=== PATIENT | female | born 1940 | race Caucasian/White ===

== ENCOUNTER 2022-11-25 12:44 | Emergency (ER) | payer SELFPAY ==
[2022-11-25 12:57] VITALS: BP 172/94; PULSE 85; RESP 20; TEMP 37.3; O2SAT 100
--- NOTE | 2022-11-25 13:58 | PC.NURSE ---
Patient wheeled out by family before this RN was able to go over risks. Patient just states Im leaving .
== END 2022-11-25 13:58 | disposition left against medical advice (07) ==
DX: R10.33 Periumbilical pain (principal)
CPT/HCPCS: 99199

== ENCOUNTER 2022-11-26 16:35 | Inpatient (IN) | payer MEDICARE, SELFPAY ==
[2022-11-26] VITALS (19 sets, daily range): BP systolic 125–177; BP diastolic 60–110; PULSE 76–98; RESP 15–25; TEMP 36.4–36.7; O2SAT 94–100
--- NOTE | ~2022-11-26 | CT_ITS ---
EXAMINATION: CT thoracic lumbar wo con DATE: 11/26/2022 20:08 INDICATION: fall w/ back pain . TECHNIQUE: Computed tomography (CT) of the thoracic and lumbar spine was performed without intravenou s contrast. The dose-length product was 269.98 mGy-cm. COMPARISON: None FINDINGS: THORACIC SPINE: Exaggerated thoracic kyphosis. Thoracic aortic ectasia and atherosclerotic calcification. Biapical pl eural scarring. Emphysematous change. Irregular 8 mm nodule in the dependent right lower lobe. Verteb ral body alignment intact. Vertebral body heights preserved. No disc space narrowing. No traumatic ma lalignment or fracture. Visualized lung parenchyma is clear. LUMBAR SPINE: Mild lumbar scoliosis. 5 nonrib-bearing lumbar-type vertebral bodies. Pedicles intact. Normal vertebr al body alignment. Vertebral body heights preserved. Multilevel degenerative disc disease, severe at L2-3 and L4-5. Multilevel facet arthropathy. Atherosclerotic calcifications. Diverticulosis. Prominen t diffuse disc bulges at L2-3 and L4-5 cause moderate central canal stenosis. Bilateral nondisplaced L1 and sacral fractures. IMPRESSION: 1. Nondisplaced bilateral zone 1 sacral fractures. 2. No acute fracture or traumatic malalignment detected in the thoracic or lumbar spine. 3. 8 mm right lower lobe pulmonary nodule, compare with outside studies if available to demonstrate s tability, otherwise consider follow-up CT in 6-12 months. Reviewed, dictated and finalized at location K. T SCHOOL COUNSELOR IMPRESSION: 1. Nondisplaced bilateral zone 1 sacral fractures. 2. No acute fracture or traumatic malalignment detected in the thoracic or lumb ar spine. 3. 8 mm right lower lobe pulmonary nodule, compare with outside studies if avai lable to demonstrate stability, otherwise consider follow-up CT in 6-12 months.
--- NOTE | ~2022-11-26 | XR_ITS ---
EXAMINATION: XR chest 2V DATE: 12/01/2022 11:02 INDICATION: Leukocytosis. Cough. TECHNIQUE: Frontal and lateral views of the chest were obtained. COMPARISON: Thoracic spine CT 11/26/2022 FINDINGS: There is mild scarring at the lung apices. The lungs are hyperexpanded with lucencies, cons istent with emphysema. There is a nodule in right lower lung zone. No pleural effusion or pneumothora x. Cardiomegaly is noted. IMPRESSION: 1. Nodule in right lower lung zone, which may be infection or less likely malignancy. Noncontrast low -dose chest CT is recommended 3 months. 2. Emphysema. 3. Cardiomegaly. Reviewed, dictated and finalized at location A. SHAKER IMPRESSION: 1. Nodule in right lower lung zone, which may be infection or less likely malig michael. Noncontrast low-dose chest CT is recommended 3 months. 2. Emphysema. 3. Cardiomegaly.
--- NOTE | ~2022-11-26 | US_ITS ---
EXAMINATION: US carotid duplex BI DATE: 11/27/2022 17:24 INDICATION: Syncope TECHNIQUE: Grayscale, color Doppler, and pulsed Doppler images of the cervical carotid arteries were obtained. The degree of vessel stenosis is placed in one of the following categories: normal, <50%, 5 0-69%, >=70% but less than near-occlusion, near-occlusion, or total occlusion. Note that percent sten osis relative to normal distal artery lumen diameter is indirectly measured from velocity measurement s as described by Josr, et al. Radiology 2003; 229:340-346. Notes: Normal: Peak systolic velocity <125 centimeters/sec and no plaque <50%. Peak systolic velocity <125 ( EDV <40; ICA/CCA PSV ratio <2.0; used these factors only a tandem lesions or low cardiac output or co ntralateral disease) 50-69 %: PSV 125-230 (EDV 40-100; ratio 2-4) >= 70% but less than near occlusion: PSV greater than 230 (EDV > 100; ratio> 4.0) Near Occlusion: PSV that is variable; markedly narrowed lumen Occlusion: Absent flow on color/spectral Doppler and no lumen on multani scale. COMPARISON: None. FINDINGS: RIGHT: The right common carotid artery (CCA) peak systolic velocity (PSV) is 64 cm/s. The right internal car otid artery (ICA) PSV is 136 cm/s. The right ICA end-diastolic velocity (EDV) is 33 cm/s. The right I CA/CCA PSV ratio is 2.1. The external carotid artery (ECA) PSV is 96 cm/s. There is antegrade flow in the right vertebral artery. LEFT: The left CCA PSV is 65 cm/s. The left ICA PSV is 101 cm/s. The left ICA EDV is 26 cm/s. The left ICA/ CCA PSV ratio is 1.6. The ECA PSV is 107 cm/s. There is antegrade flow in the left vertebral artery. IMPRESSION: 1. 50-69% stenosis in the right internal carotid artery by sonographic criteria. 2. Less than 50% stenosis in the left internal carotid artery by sonographic criteria. Reviewed, dictated and finalized at location A. LE MOLDER IMPRESSION: 1. 50-69% stenosis in the right internal carotid artery by sonographic criteria . 2. Less than 50% stenosis in the left internal carotid artery by sonographic cr iteria.
--- NOTE | ~2022-11-26 | CT_ITS ---
EXAMINATION: CTA BRAIN/CAROTID DATE: 12/03/2022 14:58 INDICATION: Right-sided stenosis and syncope. TECHNIQUE: Computed tomographic angiography (CTA) of the head and neck was performed with 100 mL Omni paque-350 intravenous contrast. Multiplanar reconstructions and maximum intensity projection 3D-recon structions of the carotid arteries and of the intracranial arteries were created by the technologist on a separate workstation. Precontrast CT of the head was also obtained. Automated exposure control and iterative reconstruction technique were employed.The dose-length product was 1380.30 mGy-cm. COMPARISON: None. FINDINGS: Carotid arteries: Visualized portion of the aortic arch is normal in caliber with no dissection. There is 40% stenosis of the right carotid bulb relative to normal distal artery lumen diameter (NASCET criteria). There is atherosclerotic plaque with 0% stenosis of the left carotid bulb relative to normal distal artery ángel men diameter. Bilateral vertebral arteries are codominant with tortuosity at the origin of the left v ertebral artery. Moderate apical pleural parenchymal scarring with moderate emphysema in the visualiz ed bilateral upper lung zones. Multinodular goiter with the largest nodule measuring 2.2 cm the deep inferior right thyroid. Moderate thoracic spondylosis. Head: There is a region of subtle increased density at the confluence of the gyri in the right parietal reg ion where there appears to be increased number of feeding arteries and draining veins on the angiogra phic portion of the examination which suggests the increased density represents the nidus of an arter iovenous malformation. The increased density does not appear to track significantly along the surface of the gyrus to suggest arachnoid hemorrhage. No acute intracranial hemorrhage, acute infarction or abnormal extra axial fluid collection. There is mild scattered white matter hypoattenuation consisten t with chronic small vessel ischemic disease. Symmetric prominence of the sulci consistent with mild age-appropriate diffuse cerebral volume loss. Ventricles are normal and symmetric. No mass/mass effec t. Prominent mucosal thickening the left sphenoid sinus. The orbits and mastoid air cells are normal. Intracranial arteries Small amount of nonhemodynamically significant plaque at the bilateral carotid siphons. There is no h emodynamically significant stenosis in the vertebral basilar arteries. Vertebral arteries are codomin ant. There are no aneurysms identified. Both A1 and P1 segments are patent. Cerebral arterial arbori zation appears symmetric. IMPRESSION: 1. 40% stenosis of the right carotid bulb relative to normal distal artery lumen diameter (NASCET cri teria). 2. 0% stenosis of the left carotid bulb relative to normal distal artery lumen diameter. 3. No acute intracranial process. 2. 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 Reviewed, dictated and finalized at location A. VERIFICATION ENGINEER IMPRESSION: 1. 40% stenosis of the right carotid bulb relative to normal distal artery lume n diameter (NASCET criteria). 2. 0% stenosis of the left carotid bulb relative to normal distal artery lumen diameter. 3. No acute intracranial process. 2. 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
[2022-11-26 18:32] LABS: Basophils Absolute Auto 0.1 K/mm3 (0.0-0.1); Basophils Percent Auto 0.6 % (0.2-1.2); Eosinophils Percent Auto 0.2 % (0-4.4); Hematocrit 37.2 % (37.0-47.0); Hemoglobin 13.1 g/dL (12.0-15.0); Immature Granulocyte Absolute 0.07 K/mm3 (0.00-0.031); Immature Granulocyte Percent A 0.6 % (0-0.5); Lymphocytes Absolute Auto 1.68 K/mm3 (0.9-3.2); Lymphocytes Percent Auto 13.7 % (18.3-44.2); Mean Corpuscular HGB Conc 35.2 g/dl (32-36); Mean Corpuscular Hemoglobin 32.2 pg (26-34); Mean Corpuscular Volume 91.4 fl (80-100); Mean Platelet Volume 8.9 fl (7.4-10.4); Monocytes Absolute Auto 0.9 K/mm3 (0.1-0.6); Monocytes Percent Auto 6.9 % (2.6-8.5); Neutrophils Absolute Auto 9.6 K/mm3 (1.3-6.7); Platelet Count Result 411 k/mm3 (150-375); Red Blood Count 4.07 M/mm3 (4.2-5.4); Red Cell Distribution Width 12.2 % (11.5-14.5); White Blood Count 12.3 K/mm3 (4.5-10.0)
[2022-11-26 19:00] LABS: Alanine Aminotransferase 17 U/L (6-35); Albumin Level 4.5 g/dL (3.5-5.1); Alkaline Phosphatase 126 U/L (38-126); Anion Gap 7 mmol/L (8-16); Aspartate Amino Transferase 29 U/L (14-36); Bilirubin,Total 0.7 mg/dL (0.2-1.3); Blood Urea Nitrogen 5 mg/dL (7-17); Calcium 8.7 mg/dL (8.4-10.2); Carbon Dioxide 27 mmol/L (22-30); Chloride 86 mmol/L (98-107); Estimated CRCL calculation 66 ml/min; Estimated Glomerular Filt Rate > 60; Glucose 108 mg/dL (65-110); Lipase 263 U/L (23-300); Potassium 3.9 mmol/L (3.4-5.0); Sodium 120 mmol/L (137-145)
[2022-11-26 19:14] LABS: Add Urine Microscopic? YES; Appearance Urine Clear (Clear); Bilirubin Urine Negative (Negative); Blood Urine 2+ (Negative); Color Urine Yellow (Yellow); Glucose Urine UA Negative (Negative); Ketones Urine 1+ mg/dL (Negative); Leukocyte Esterase Ur Negative LEU/UL (Negative); Nitrate Urine Negative (Negative); Protein Urine Negative (Negative); Specific Grav Ur <= 1.005 (1.001-1.035); Urobilinogen Urine 0.2 mg/dL (<2.0)
[2022-11-26 19:17] LABS: Bacteria Urine Trace /hpf; Squamous Epithelial Cell Urine Rare /hpf (Few); WBC Urine 0-3 /hpf
--- NOTE | 2022-11-26 19:28 | ECG_ITS ---
Measurements Intervals [place] Rate: 88 P: 77 DE: 135 QRS: 83 QRSD: 80 T: 65 QT: 357 QTc: 432 Interpretive Statements SINUS RHYTHM WITH OCCASIONAL SUPRA VENTRICULAR PREMATURE COMPLEXES POSSIBLE LEFT ATRIAL ENLARGEMENT MINIMAL Q WAVES- ANTEROLAT/INF LEADS BASELINE ARTIFACT- I, II, III, AVR, AVL, AVF BORDERLINE ECG NO PREVIOUS ECG AVAILABLE FOR COMPARISON Electronically Signed On 11-26-2022 20:45:25 INCLUSION SPECIAL EDUCATION TEACHER by Priyank Gordon D.O.
--- NOTE | 2022-11-26 19:57 | ED.ABDPAIN ---
HPI - Abdominal Pain General Chief Complaint: Abdominal Pain Stated Complaint: kidney pains Time Seen by Provider: 11/26/22 19:38 History of Present Illness HPI narrative: Ms. Stovall is 82-year-old female who presented emergency room with complaints of upper abdominal pain and back pain. Patient's family is at bedside and is helping to provide information since patient does have some underlying memory loss. Patient states she fell approximately 5 days ago but was having back pain prior to this. Patient's family states the patient fell approximately 5 days ago and started having pain after her fall. Patient does complain of occasional nausea but no vomiting. Patient denies any constipation or diarrhea. Patient is able to state where she is at, what year it is, and who the present illness. Patient's family states the patient does have occasional confusion. Upon evaluation is noted the patient's sodium is 120. Patient denies any chest pain, shortness of breath, palpitations, syncopal, or near syncopal episodes. Patient states she occasionally does get dizzy when going from sitting to standing, but this does not occur daily. Patient denies any dysuria, hematuria, frequency, or urgency. Patient states she has not seen a primary care provider and over 20 years. Related Data Allergies Allergy/AdvReac Type Severity Reaction Status Date / Time No Known Allergies Allergy Verified 11/25/22 12:45 Review of Systems Review of Systems: A 12 point review of systems was completed patient all pertinent positive and negative per HPI the remainder are unremarkable. [facility] Social History Social History (Updated 11/26/22 @ 20:05 by Sandra Salazar, TAO) Smoking packs per day: 2 Smoking cigarettes per day: 40.0 Years smoked: 30 Smoking pack-years: 60.00 Smoking status: Current every day smoker Alcohol intake: current Alcohol use details: patient states she drinks 4-5 beers daily. Living arrangements: with family Exam Narrative: Constitutional: Patient is An 82-year-old an 82-year-old cachectic female who is frail and iin no acute distress. Patient is alert and oriented x3 HEENT: Moist mucous membranes. No scleral icterus. No lymphadenopathy. Neck: No carotid bruits noted no JVD noted Lungs: Lung sounds are clear to auscultation bilaterally. No accessory muscle use. No rhonchi, rales, or wheezes noted. Cardiovascular: Apical pulse is regular rate and rhythm. S1-S2 noted, no S3 or S4 noted. No gallops, murmurs, or rubs noted. Abdomen: Soft, round, and nontender. No palpable masses. Extremities: No edema. Nontender. Skin: No rashes or lesions. Warm and dry. Skin is intact. Neurological: No focal neurological deficits. Cranial nerves II-XII grossly intact. Psychiatric: Cooperative, appropriate mood, and affect Course Consultations Consultation #1: Dr. Self-Spoke w/ Dr. Self regarding CT findings. Dr. Self States that patient can follow-up in clinic in 1-2 weeks since she is neurovascularly intact. Date: 11/26/22 Consultation #2: Dr. Echols. Spoke with hospitalist regarding admission to the hospital secondary to hyponatremia. Dr. Echols graciously accepts the patient in states that she would like the patient to be placed on the medical-surgical floor and will evaluate the patient when she has been admitted to the unit. Vital Signs Vital signs: Vital Signs Temperature 36.4 C L 11/26/22 16:36 Pulse Rate 98 11/26/22 16:36 Respiratory Rate 17 11/26/22 16:36 Blood Pressure 155/85 H 11/26/22 16:36 Pulse Oximetry 97 11/26/22 16:36 Oxygen Delivery Room Air 11/26/22 16:36 Temperature 36.7 C 11/26/22 19:24 Pulse Rate 88 11/26/22 20:59 Respiratory Rate 20 11/26/22 20:26 Blood Pressure 177/75 H 11/26/22 20:26 Pulse Oximetry 98 11/26/22 20:26 Oxygen Delivery Room Air 11/26/22 16:36 MDM - Abdominal Pain MDM Narrative Medical decision making narrativ
[2022-11-26] MEDS: SODIUM CHLORIDE 0.9% IV 1,000 ML 100 ML IV CONT ×2 (20:14→22:31)
--- NOTE | 2022-11-26 20:22 | PC.NURSE ---
When asked pt what brought her into the ER pt reports abdominal and kidney pain. Her and daughter at bedside. reports pt drinks 4 beers every day, she has very poor nutrition, and has fallen multiple times over the past 2 months. Pt is alert, but forgetful. She denies any pain at this time.
[2022-11-26] MEDS: MORPHINE SULFATE (*CRX) 2 MG/ML INJ 1 MG IV PUSH (20:59)
--- NOTE | 2022-11-26 21:31 | PM.IMHP ---
H&P: HPI History of Present Illness Date/Time: 11/26/22 21:31 Chief Complaint: Fall Narrative: This is an 82-year-old female past medical history significant for ETOH dependence, recurrent falls, patient comes to the emergency room due to lower back pain. Patient was brought for evaluation by family members drinks 3-4 beers daily denies any nausea, vomiting, diarrhea, fevers, shortness of breath, sputum production. Preliminary workup was significant for chemistry panel with a sodium 120. CT of thoracic and lumbar spine was reported as: FINDINGS: THORACIC SPINE: Exaggerated thoracic kyphosis. Thoracic aortic ectasia and atherosclerotic calcification. Biapical pleural scarring. Emphysematous change. Irregular 8 mm nodule in the dependent right lower lobe. Vertebral body alignment intact. Vertebral body heights preserved. No disc space narrowing. No traumatic malalignment or fracture. Visualized lung parenchyma is clear. LUMBAR SPINE: Mild lumbar scoliosis. 5 nonrib-bearing lumbar-type vertebral bodies. Pedicles intact. Normal vertebral body alignment. Vertebral body heights preserved. Multilevel degenerative disc disease, severe at L2-3 and L4-5. Multilevel facet arthropathy. Atherosclerotic calcifications. Diverticulosis. Prominent diffuse disc bulges at L2-3 and L4-5 cause moderate central canal stenosis. Bilateral nondisplaced L1 and sacral fractures. IMPRESSION: 1. Nondisplaced bilateral zone 1 sacral fractures. 2. No acute fracture or traumatic malalignment detected in the thoracic or lumbar spine. 3. 8 mm right lower lobe pulmonary nodule, compare with outside studies if available to demonstrate stability, otherwise consider follow-up CT in 6-12 months. Patient is been placed in observation for further evaluation management and treatment. Review of Systems Review of Systems: Recurrent falls, lower back pain Constitutional: Constitutional: Denies chills, Denies fever(s), Denies malaise, Denies night sweats, Denies poor appetite and Reports weakness Eyes: Eyes: Denies change in vision ENT: Denies dysphagia, Denies vertigo, Denies dizziness and Denies odynophagia Cardiovascular: Cardiovascular: Denies chest pain, Denies leg edema, Denies palpitations and Denies dyspnea on exertion Respiratory: Respiratory: Denies chest congestion, Denies cough, Denies pain on inspiration and Denies dyspnea Gastrointestinal: Gastrointestinal: Denies abdominal pain, Denies dyspepsia, Denies heartburn, Denies diarrhea, Denies nausea and Denies vomiting Genitourinary: Genitourinary: Denies dysuria Musculoskeletal: Musculoskeletal: Reports back pain Integumentary/Breasts: Skin/Breast: Denies rash Neurologic: Denies vertigo, Denies dizziness, Denies focal weakness and Denies Sensory deficit (Neuro) Psychiatric: Psychiatric: Reports no additional psychiatric complaints and Reports as per HPI Endocrine: Endocrine: Denies cold intolerance, Denies flushing, Denies heat intolerance, Denies polyphagia, Denies polydipsia and Denies palpitations Hematologic/Lymphatic: Hematologic/Lymphatic: Reports no additional hematologic/lymphatic complaints and Reports as per HPI Allergic/Immunologic: Allergic/Immunologic: Reports no additional allergic/immunologic complaints and Reports as per HPI [facility] Social History Social History (Updated 11/26/22 @ 20:05 by Sandra Salazar APRN) Smoking packs per day: 2 Smoking cigarettes per day: 40.0 Years smoked: 30 Smoking pack-years: 60.00 Smoking status: Current every day smoker Alcohol intake: current Alcohol use details: patient states she drinks 4-5 beers daily. Living arrangements: with family Meds Home Medications and Allergies Home Medications Medication Instructions Recorded Confirmed Type No Home Medications 11/27/22 11/27/22 History Allergies Allergy/AdvReac Type Severity Reaction Status Date / Time No Known Allergies Allergy Verified 11/25/22 12:45 Vital Si
[2022-11-26 22:31] LABS: Influenza A QL RT-PCR Negative (Negative); Influenza B QL RT-PCR Negative (Negative); SARS-CoV-2 RNA PCR Negative
[2022-11-27] VITALS (28 sets, daily range): BP systolic 107–143; BP diastolic 53–96; PULSE 63–100; RESP 14–27; TEMP 36; O2SAT 98–100; BMI 14.5
[2022-11-27] MEDS: ACETAMINOPHEN 325 MG TABLET 650 MG PO ×3 (00:32→17:16)
[2022-11-27] MEDS: HYDROcodone/acetaminophen (*CRX) 5-325 MG TABLET 1 TAB PO (01:47)
[2022-11-27 05:31] LABS: Anion Gap 5 mmol/L (8-16); Blood Urea Nitrogen 3 mg/dL (7-17); Calcium 7.5 mg/dL (8.4-10.2); Carbon Dioxide 23 mmol/L (22-30); Chloride 104 mmol/L (98-107); Estimated CRCL calculation 66 ml/min; Estimated Glomerular Filt Rate > 60; Glucose 98 mg/dL (65-110); Potassium 3.1 mmol/L (3.4-5.0); Sodium 132 mmol/L (137-145)
--- NOTE | 2022-11-27 16:15 | PM.IMPN ---
Progress Note: A&P Assessment and Plan (1) Recurrent falls: Code(s): R29.6 - Repeated falls Status: Acute Assessment and Plan: Consult PT OT for evaluation S32.019A - Unspecified fracture of first lumbar vertebra, initial encounter for closed fracture ?Status:?Acute ?Assessment and Plan: Supportive care Pain management PT OT consult (2) EtOH dependence: Code(s): F10.20 - Alcohol dependence, uncomplicated Status: Acute Assessment and Plan: No sign of alcohol withdrawal (3) Hyponatremia: Code(s): E87.1 - Hypo-osmolality and hyponatremia Status: Acute Assessment and Plan: Hyponatremia, hypokalemia Replace with ns iv, potassium chloride 40 mEq p.o. (4) Closed L1 vertebral fracture: Code(s): S32.019A - Unspecified fracture of first lumbar vertebra, initial encounter for closed fracture Status: Acute Assessment and Plan: Supportive care Pain management PT OT consult (5) Syncope: Code(s): R55 - Syncope and collapse Status: Acute Assessment and Plan: Patient reported frequent syncope in past few months, Kadeem Hatfield was a wk ago Neuro check Follow-up orthostatic test, echocardiogram, carotid Doppler, Politician telemetry monitoring (6) Severe malnutrition: Code(s): E43 - Unspecified severe protein-calorie malnutrition Status: Acute Plan Consultation Provide a supplement Subjective Date/time seen: 11/27/22 16:15 I saw examined patient in the ED. patient still has buttock pain, unable to ambulate because of pain. Patient and family stated she had a frequent syncope in the past 4 months, no syncope yesterday, but the syncope happened a week ago Patient had dizziness before syncope. Patient denies focal weakness, headache, vision change Review of Systems Review of Systems: ROS unobtainable: Yes unobtainable due to medical condition Constitutional: Constitutional: Denies chills, Denies fever(s), Denies malaise, Denies night sweats, Denies poor appetite and Reports weakness Eyes: Eyes: Denies change in vision ENT: Denies dysphagia, Denies vertigo, Denies dizziness and Denies odynophagia Cardiovascular: Cardiovascular: Denies chest pain, Denies leg edema, Denies palpitations, Denies dyspnea and Denies dyspnea on exertion Respiratory: Respiratory: Denies chest congestion, Denies cough, Denies pain on inspiration, Denies dyspnea and Denies dyspnea on exertion Gastrointestinal: Gastrointestinal: Denies abdominal pain, Denies dysphagia, Denies dyspepsia, Denies heartburn, Denies diarrhea, Denies nausea, Denies odynophagia and Denies vomiting Genitourinary: Genitourinary: Denies dysuria Musculoskeletal: Musculoskeletal: Reports back pain Integumentary/Breasts: Skin/Breast: Denies rash Neurologic: Denies vertigo, Denies dizziness, Denies focal weakness, Denies Sensory deficit (Neuro) and Reports weakness Psychiatric: Psychiatric: Reports no additional psychiatric complaints and Reports as per HPI Endocrine: Endocrine: Denies cold intolerance, Denies flushing, Denies heat intolerance, Denies polyphagia, Denies polydipsia and Denies palpitations Hematologic/Lymphatic: Hematologic/Lymphatic: Reports no additional hematologic/lymphatic complaints and Reports as per HPI Allergic/Immunologic: Allergic/Immunologic: Reports no additional allergic/immunologic complaints and Reports as per HPI Exam Narrative: Patient is laying in a stretcher Const: General: comfortable, no acute distress, well developed, alert, awake, average body habitus and cachectic Nutritional Appearance: average body habitus and cachectic Orientation/consciousness: patient oriented x3 HENMT: Head: normal to inspection, normocephalic and atraumatic Ears: hearing grossly normal bilaterally Face/Nose/Sinus: normal facial exam Face and sinus: normal facial exam Eyes: General: appearance normal, both eyes and all related struc
[2022-11-27] MEDS: NICOTINE (*PBKC) 21 MG PATCH 1 PATCH TRANSDERM (17:08)
[2022-11-27 17:09] LABS: Anion Gap 5 mmol/L (8-16); Blood Urea Nitrogen 8 mg/dL (7-17); Calcium 7.9 mg/dL (8.4-10.2); Carbon Dioxide 25 mmol/L (22-30); Chloride 99 mmol/L (98-107); Estimated CRCL calculation 66 ml/min; Estimated Glomerular Filt Rate > 60; Glucose 149 mg/dL (65-110); Potassium 3.1 mmol/L (3.4-5.0); Sodium 129 mmol/L (137-145)
[2022-11-27] MEDS: SODIUM CHLORIDE 0.9% IV 1,000 ML 100 ML IV CONT (17:09)
[2022-11-27] MEDS: POTASSIUM CHLORIDE 20 MEQ TABLET 40 MEQ PO (17:09)
--- NOTE | 2022-11-27 18:35 | ADMGEN ---
This patient, Sulema Stovall, was admitted to Medical Room 261-01. Patient/family oriented to hospital policies and general routines including ID bracelet, bed and alarms, visiting hours, pain management, procedures, bathroom and other care routines, personal items, smoking policy, room service/diet, and visiting hours. Information on how to activate the Rapid Response Team has been discussed. Patient/Family are encouraged to report perceived risks to care and to ask questions if they do not understand what they are told or what they should do.
[2022-11-28] VITALS (10 sets, daily range): BP systolic 135–164; BP diastolic 68–87; PULSE 57–90; RESP 14–20; TEMP 36.7–36.9; O2SAT 96–100; BMI 14.5
[2022-11-28] MEDS: ACETAMINOPHEN 325 MG TABLET 650 MG PO ×2 (01:11→17:53)
[2022-11-28] MEDS: SODIUM CHLORIDE 0.9% IV 1,000 ML 100 ML IV CONT ×2 (05:19→17:52)
[2022-11-28] MEDS: ENOXAPARIN 40 MG/0.4 ML SYRINGE SUB-Q (08:40)
[2022-11-28] MEDS: NICOTINE (*PBKC) 21 MG PATCH 1 PATCH TRANSDERM (08:40)
[2022-11-28] MEDS: HYDROcodone/acetaminophen (*CRX) 5-325 MG TABLET 1 TAB PO ×2 (11:24→22:53)
--- NOTE | 2022-11-28 11:34 | PCOTNOTE ---
Attempted to see for OT evaluation. Per nursing, the patient was having 9/10 back pain and she just administered pain medication. She recommends therapy attempt later after the medication has had time to take effect.
--- NOTE | 2022-11-28 11:59 | PCOTNOTE ---
Spoke with nursing regarding safety concerns for mobilizing pt. without consultation from neurosurgeon or orthopedics to address pt. vertebral fxs. Nursing agreed to follow up with hospitalist regarding additional consult. Following.
--- NOTE | 2022-11-28 16:13 | ECHO_ITS ---
Patient Info Name: Sulema Stovall Age: 82 years : 1940 Gender: Female Ht: 62 in Wt: 79 lbs BSA: 1.24 m2 HR: 71 bpm BP: 126 / 65 mmHg Technical Quality: Good Exam Date: 11/28/2022 8:06 AM Exam Location: [facility] Patient Status: Inpatient Admit Date: 11/28/2022 Staff Ordering Physician: Mukund Matos MD Home Health Assistant: Ralf Gardner RDCS, RT Attending Provider: Steven Echols MD Exam Type: CA echo doppler color flow Study Info Indications R42 - Dizziness and giddiness Complete two-dimensional, color flow and Doppler transthoracic echocardiogram is performed. Strain analysis performed. Summary 1. Complete two-dimensional, color flow and Doppler transthoracic echocardiogram is performed. 2. Left ventricular chamber dimension is normal. 3. Left ventricular systolic function is normal, estimated at 60-65%. 4. The left ventricular diastolic function is normal. 5. E/e' 8 is minimally elevated. 6. Global longitudinal strain is normal at -19.9%. 7. There is mild aortic valve sclerosis. 8. There is mild to moderate aortic valve regurgitation. 9. There is mild to moderate mitral valve regurgitation. 10. There is moderate tricuspid valve regurgitation. 11. No pulmonary hypertension, estimated pulmonary arterial systolic pressure is 35 mmHg. 12. Normal inferior vena cava with <50% collapse upon inspiration consistent with elevated right atrial pressure, 10 mmHg. Left Ventricle E/e' 8 is minimally elevated. Global longitudinal strain is normal at -19.9%. Left ventricular chamber dimension is normal. Left ventricular systolic function is normal, estimated at 60-65%. The left ventricular diastolic function is normal. Right Ventricle Right ventricular systolic function is normal and with normal TAPSE 2.2 cm. Right ventricular chamber dimension is normal. Left Atria Left atrial chamber dimension is normal. Right Atria Right atrial chamber dimension is normal. Aortic Valve The aortic valve is trileaflet. There is mild aortic valve sclerosis. There is no aortic valve stenosis. There is mild to moderate aortic valve regurgitation. Pulmonic Valve There is no pulmonic regurgitation. Mitral Valve There is no mitral valve stenosis. There is mild to moderate mitral valve regurgitation. Tricuspid Valve There is moderate tricuspid valve regurgitation. No pulmonary hypertension, estimated pulmonary arterial systolic pressure is 35 mmHg. Pericardium/Pleural There is no pericardial effusion. Inferior Vena Cava Normal inferior vena cava with <50% collapse upon inspiration consistent with elevated right atrial pressure, 10 mmHg. Aorta The aortic root size at the sinus of Valsalva is normal. Left Ventricular Outflow Tract Name Value Normal LVOT 2D LVOT Diameter 1.9 cm LVOT Doppler LVOT Peak Gradient 5 mmHg LVOT Mean Gradient 3 mmHg LVOT VTI 24 cm LVOT VTI/AV VTI Ratio 0.9 LVOT Stroke Volume 66 ml LVOT CO
--- NOTE | 2022-11-28 16:33 | PM.IMPN ---
Progress Note: A&P Assessment and Plan (1) Recurrent falls: Code(s): R29.6 - Repeated falls Status: Acute Assessment and Plan: Consult PT OT for evaluation S32.019A - Unspecified fracture of first lumbar vertebra, initial encounter for closed fracture ?Status:?Acute ?Assessment and Plan: Supportive care Pain management PT OT consult (2) EtOH dependence: Code(s): F10.20 - Alcohol dependence, uncomplicated Status: Acute Assessment and Plan: No sign of alcohol withdrawal (3) Hyponatremia: Code(s): E87.1 - Hypo-osmolality and hyponatremia Status: Acute Assessment and Plan: Hyponatremia, hypokalemia Replace with ns iv, potassium chloride 40 mEq p.o. (4) Closed L1 vertebral fracture: Code(s): S32.019A - Unspecified fracture of first lumbar vertebra, initial encounter for closed fracture Status: Acute Assessment and Plan: Supportive care Pain management PT OT consult (5) Syncope: Code(s): R55 - Syncope and collapse Status: Acute Assessment and Plan: Patient reported frequent syncope in past few months, Kadeem Hatfield was a wk ago Neuro check Follow-up orthostatic test, echocardiogram EF normal, no aortic stenosis, carotid Doppler moderate bilateral carotid carotid arteries, no occlusion c/w telemetry monitoring (6) Severe malnutrition: Code(s): E43 - Unspecified severe protein-calorie malnutrition Status: Acute Plan Consultation Provide a supplement Time Spent With Patient Time: 35mins Subjective Date/time seen: 11/28/22 16:33 Exam Narrative: Patient is laying in a stretcher Const: General: comfortable, no acute distress, well developed, alert, awake, average body habitus and cachectic Nutritional Appearance: average body habitus and cachectic Orientation/consciousness: patient oriented x3 HENMT: Head: normal to inspection, normocephalic and atraumatic Ears: hearing grossly normal bilaterally Face/Nose/Sinus: normal facial exam Face and sinus: normal facial exam Eyes: General: appearance normal, both eyes and all related structures Pupils: Equal, round and reactive pupils present EOM: EOMs intact bilaterally Neck: Neck: full ROM, no lymphadenopathy and no JVD Thyroid: thyroid normal Lymphatic: no lymphadenopathy noted Resp: Effort & Inspection: normal respiratory effort and able to speak in complete sentences Auscultation: clear to auscultation bilaterally Cardio: Jugular venous distension: no JVD Rate: regular rate Rhythm: regular rhythm Heart sounds: S1 normal heart sound present and S2 normal heart sound present : General: Yes deferred Skin: Rashes: no rashes Wounds: no wounds Neuro: General: patient oriented x3, CN's II-XI intact bilaterally and Unable to assess gait Cranial nerves: Yes CN's II-XII intact bilaterally and Yes Equal, round and reactive pupils present Cognition (Neuro): normal cognition Speech: normal speech Gait exam (Neuro): Unable to assess gait Motor exam (neuro): 5/5 motor strength present throughout Sensory Exam: No Sensory deficit (Neuro) Extrem: General: normal to inspection, full ROM, no joint enlargement and no pedal edema Objective Data Vital Signs Vital Signs: Vital Signs - 24 hr 11/27/22 18:32 11/27/22 21:19 11/27/22 20:00 Temperature 96.8 F L Pulse Rate 71 67 Respiratory Rate 18 Blood Pressure 126/65 Pulse Oximetry 99 Oxygen Delivery Room Air 11/27/22 20:00 11/28/22 00:00 11/28/22 04:00 Temperature Pulse Rate 71 75 78 Respiratory Rate 18 Blood Pressure Pulse Oximetry 99 Oxygen Delivery Room Air 11/28/22 06:37 11/28/22 06:54 11/28/22 08:00 Temperature 98.0 F Pulse Rate 71 Respiratory Rate 14 Blood Pressure 135/73 145/68 H Pulse Oximetry 99 Oxygen Delivery Room Air 11/28/22 08:00 11/28/22 12:00 11/28/22 14:00 Temperature 98.5 F Pulse Rate 77 73 89 Respirator
[2022-11-29] VITALS: PULSE 87
[2022-11-29 04:00] VITALS: PULSE 87
[2022-11-29 06:00] VITALS: BP 141/71; PULSE 67; RESP 20; TEMP 36.6; O2SAT 100
[2022-11-29] MEDS: SODIUM CHLORIDE 0.9% IV 1,000 ML 100 ML IV CONT ×2 (06:04→19:15)
[2022-11-29 08:00] VITALS: PULSE 66
[2022-11-29] MEDS: NICOTINE (*PBKC) 21 MG PATCH 1 PATCH TRANSDERM (09:21)
[2022-11-29] MEDS: ENOXAPARIN 40 MG/0.4 ML SYRINGE SUB-Q (09:21)
--- NOTE | 2022-11-29 12:04 | PM.IMPN ---
Progress Note: A&P Assessment and Plan (1) Recurrent falls: Code(s): R29.6 - Repeated falls Status: Acute Assessment and Plan: Consult PT OT for evaluation S32.019A - Unspecified fracture of first lumbar vertebra, initial encounter for closed fracture ?Status:?Acute ?Assessment and Plan: Supportive care Pain management PT OT consult, recommends discharge to rehab Plans discharge patient on Thursday (2) EtOH dependence: Code(s): F10.20 - Alcohol dependence, uncomplicated Status: Acute Assessment and Plan: No sign of alcohol withdrawal (3) Hyponatremia: Code(s): E87.1 - Hypo-osmolality and hyponatremia Status: Acute Assessment and Plan: Hyponatremia, hypokalemia Replace with ns iv, potassium chloride 40 mEq p.o. Follow-up BMP (4) Closed L1 vertebral fracture: Code(s): S32.019A - Unspecified fracture of first lumbar vertebra, initial encounter for closed fracture Status: Acute Assessment and Plan: Supportive care Pain management PT OT consult (5) Syncope: Code(s): R55 - Syncope and collapse Status: Acute Assessment and Plan: Patient reported frequent syncope in past few months, Kadeem Hatfield was a wk ago Neuro check Follow-up orthostatic test, echocardiogram EF normal, no aortic stenosis, carotid Doppler moderate bilateral carotid carotid arteries, no occlusion c/w telemetry monitoring (6) Severe malnutrition: Code(s): E43 - Unspecified severe protein-calorie malnutrition Status: Acute Plan Consultation Provide a supplement Subjective Date/time seen: 11/29/22 12:04 Review of Systems Review of Systems: GENERAL: Pleasant, in no acute distress. Well-nourished. Has general weakness - EYES: EOMI. Anicteric. - HENT: Moist mucous membranes. - LUNGS: Clear to auscultation bilaterally, no wheezing, rhonchi, or rales. - CARDIOVASCULAR: Regular rate and rhythm. No murmur. No JVD. - ABDOMEN: Soft, non-tender and non-distended. No palpable masses. - EXTREMITIES: No edema. Peripheral pulses 2+. Non-tender. - NEUROLOGIC: No focal neurological deficits. CN II-XII grossly intact. unstable gait because of buttock pain on the sacral region - PSYCHIATRIC: Awake, Alert and oriented x 3. Appropriate mood and affect. - SKIN: No rashes or lesions. Warm. - LYMPH: No cervical lymphadenopathy. Objective Data Vital Signs Vital Signs: Vital Signs - 24 hr 11/28/22 14:00 11/28/22 15:01 11/28/22 16:00 Temperature 98.5 F Pulse Rate 89 87 Respiratory Rate 18 Blood Pressure 144/77 H Pulse Oximetry 100 Oxygen Delivery Room Air 11/28/22 20:55 11/28/22 20:00 11/28/22 20:00 Temperature 98.4 F Pulse Rate 57 L 57 L 90 Respiratory Rate 20 20 Blood Pressure 164/87 H Pulse Oximetry 96 96 Oxygen Delivery Room Air 11/29/22 00:00 11/29/22 04:00 11/29/22 06:00 Temperature 97.8 F Pulse Rate 87 87 67 Respiratory Rate 20 Blood Pressure 141/71 H Pulse Oximetry 100 Oxygen Delivery 11/29/22 08:00 11/29/22 08:00 Temperature Pulse Rate 66 Respiratory Rate Blood Pressure Pulse Oximetry Oxygen Delivery Room Air Intake/Output Intake/Output: Intake & Output 11/26/22 11/27/22 11/28/22 11/29/22 23:59 23:59 23:59 23:59 Intake Total 1000 1240 3760 1410 Output Total 240 408 1356 1450 Balance 626 913 2493 -40 Meds/Results Medications: Active Medications Generic Name Dose Route Start Last Admin Trade Name Freq PRN Reason Stop Dose Admin Acetaminophen 650 mg 11/26/22 21:36 11/28/22 17:53 Acetaminophen 325 Mg Tablet PO 650 mg Q6HR PRN Administration Mild Pain (1-3) or Fever Hydrocodone Bitart/Acetaminophen 1 tab 11/28/22 10:34 11/28/22 22:53 Hydrocodone/Acetaminophen (*Crx) 5-325 Mg Tablet PO 1 tab Q4H PRN Administration Pain Rated 4-6 Enoxaparin Sodium 40 mg 11/28/22 09:00 11/29/22 09:21 Enoxaparin 40 Mg/
[2022-11-29 12:29] LABS: Hematocrit 33.5 % (37.0-47.0); Hemoglobin 11.4 g/dL (12.0-15.0); Mean Corpuscular Hemoglobin 32.3 pg (26-34); Mean Corpuscular Volume 94.9 fl (80-100); Mean Platelet Volume 8.9 fl (7.4-10.4); Platelet Count Result 315 k/mm3 (150-375); Red Blood Count 3.53 M/mm3 (4.2-5.4); Red Cell Distribution Width 12.6 % (11.5-14.5); White Blood Count 11.9 K/mm3 (4.5-10.0)
[2022-11-29 12:40] LABS: Anion Gap 3 mmol/L (8-16); Blood Urea Nitrogen 8 mg/dL (7-17); Calcium 8.2 mg/dL (8.4-10.2); Carbon Dioxide 29 mmol/L (22-30); Chloride 98 mmol/L (98-107); Estimated CRCL calculation 66 ml/min; Estimated Glomerular Filt Rate > 60; Glucose 104 mg/dL (65-110); Potassium 3.2 mmol/L (3.4-5.0); Sodium 130 mmol/L (137-145)
[2022-11-29 14:00] VITALS: BP 134/68; PULSE 77; RESP 16; TEMP 36.9; O2SAT 100
[2022-11-29] MEDS: ACETAMINOPHEN 325 MG TABLET 650 MG PO ×2 (15:29→21:32)
[2022-11-29 17:27] LABS: Hematocrit 34.6 % (37.0-47.0); Hemoglobin 11.8 g/dL (12.0-15.0); Mean Corpuscular HGB Conc 34.1 g/dl (32-36); Mean Corpuscular Hemoglobin 32.3 pg (26-34); Mean Corpuscular Volume 94.8 fl (80-100); Mean Platelet Volume 8.9 fl (7.4-10.4); Platelet Count Result 311 k/mm3 (150-375); Red Blood Count 3.65 M/mm3 (4.2-5.4); Red Cell Distribution Width 12.4 % (11.5-14.5); White Blood Count 12.7 K/mm3 (4.5-10.0)
[2022-11-29 17:37] LABS: Anion Gap 7 mmol/L (8-16); Blood Urea Nitrogen 8 mg/dL (7-17); Calcium 8.2 mg/dL (8.4-10.2); Carbon Dioxide 28 mmol/L (22-30); Chloride 94 mmol/L (98-107); Estimated CRCL calculation 66 ml/min; Estimated Glomerular Filt Rate > 60; Glucose 113 mg/dL (65-110); Potassium 3.5 mmol/L (3.4-5.0); Sodium 129 mmol/L (137-145)
[2022-11-29 20:36] VITALS: BP 123/63; PULSE 78; RESP 12; TEMP 36.7; O2SAT 97
[2022-11-30 05:23] VITALS: BP 134/73; PULSE 90; RESP 12; TEMP 36.4; O2SAT 98
[2022-11-30] MEDS: SODIUM CHLORIDE 0.9% IV 1,000 ML 100 ML IV CONT ×2 (06:03→16:15)
--- NOTE | 2022-11-30 08:29 | PM.IMPN ---
Progress Note: A&P Assessment and Plan (1) Recurrent falls: Code(s): R29.6 - Repeated falls Status: Acute Assessment and Plan: Consult PT OT for evaluation S32.019A - Unspecified fracture of first lumbar vertebra, initial encounter for closed fracture ?Status:?Acute ?Assessment and Plan: Supportive care Pain management PT OT consult, recommends discharge to rehab Plans discharge patient on Thursday (2) EtOH dependence: Code(s): F10.20 - Alcohol dependence, uncomplicated Status: Acute Assessment and Plan: No sign of alcohol withdrawal (3) Hyponatremia: Code(s): E87.1 - Hypo-osmolality and hyponatremia Status: Acute Assessment and Plan: Hyponatremia, hypokalemia Replace with ns iv, potassium chloride 40 mEq p.o. Hypokalemia corrected Hyponatremia improving Continue sodium chloride 1 g t.i.d. p.o. Follow-up BMP (4) Closed L1 vertebral fracture: Code(s): S32.019A - Unspecified fracture of first lumbar vertebra, initial encounter for closed fracture Status: Acute Assessment and Plan: Supportive care Pain management PT OT consult (5) Syncope: Code(s): R55 - Syncope and collapse Status: Acute Assessment and Plan: Patient reported frequent syncope in past few months, Kadeem Hatfield was a wk ago Neuro check Follow-up orthostatic test, echocardiogram EF normal, no aortic stenosis, carotid Doppler moderate bilateral carotid carotid arteries, no occlusion c/w telemetry monitoring (6) Severe malnutrition: Code(s): E43 - Unspecified severe protein-calorie malnutrition Status: Acute Plan Consultation Provide a supplement Subjective Date/time seen: 11/30/22 08:29 Saw and examined patient, patient still has difficulty with ambulation with assist because of general weakness and the buttock pain Patient denies chest pain, shortness breath, abdomen pain, nausea vomiting diarrhea Exam Narrative: Patient is laying in a stretcher Const: General: no acute distress, well developed, alert, awake, average body habitus and cachectic Nutritional Appearance: average body habitus Orientation/consciousness: patient oriented x3 HENMT: Head: normal to inspection, normocephalic and atraumatic Ears: hearing grossly normal bilaterally Face/Nose/Sinus: normal facial exam Face and sinus: normal facial exam Eyes: General: appearance normal, both eyes and all related structures Pupils: Equal, round and reactive pupils present EOM: EOMs intact bilaterally Neck: Neck: full ROM, no lymphadenopathy and no JVD Thyroid: thyroid normal Lymphatic: no lymphadenopathy noted Resp: Effort & Inspection: normal respiratory effort and able to speak in complete sentences Auscultation: clear to auscultation bilaterally Cardio: Jugular venous distension: no JVD Rate: regular rate Rhythm: regular rhythm Heart sounds: S1 normal heart sound present and S2 normal heart sound present : General: Yes deferred Skin: Rashes: no rashes Wounds: no wounds Neuro: General: patient oriented x3, CN's II-XI intact bilaterally and Unable to assess gait Cranial nerves: Yes CN's II-XII intact bilaterally and Yes Equal, round and reactive pupils present Cognition (Neuro): normal cognition Speech: normal speech Gait exam (Neuro): Unable to assess gait Motor exam (neuro): 5/5 motor strength present throughout Sensory Exam: No Sensory deficit (Neuro) Extrem: General: normal to inspection, full ROM, no joint enlargement and no pedal edema Objective Data Vital Signs Vital Signs: Vital Signs - 24 hr 11/29/22 14:00 11/29/22 20:36 11/30/22 05:23 Temperature 98.5 F 98.1 F 97.5 F L Pulse Rate 77 78 90 Respiratory Rate 16 12 12 Blood Pressure 134/68 123/63 134/73 Pulse Oximetry 100 97 98 Intake/Output Intake/Output: Intake & Output 11/27/22 11/28/22 11/29/22 11/30/22 23:59 23:59 23:59 23:59 Intake Total 1240 8620 2830 1325
[2022-11-30] MEDS: ENOXAPARIN 40 MG/0.4 ML SYRINGE SUB-Q (09:36)
[2022-11-30] MEDS: SODIUM CHLORIDE 1 GM TABLET PO ×3 (09:36→16:15)
[2022-11-30] MEDS: NICOTINE (*PBKC) 21 MG PATCH 1 PATCH TRANSDERM (09:36)
[2022-11-30 14:28] VITALS: BP 139/82; PULSE 92; RESP 17; TEMP 36.3; O2SAT 98
[2022-11-30 18:19] LABS: Hematocrit 33.7 % (37.0-47.0); Hemoglobin 11.3 g/dL (12.0-15.0); Mean Corpuscular HGB Conc 33.5 g/dl (32-36); Mean Corpuscular Hemoglobin 32.2 pg (26-34); Mean Platelet Volume 9.5 fl (7.4-10.4); Platelet Count Result 323 k/mm3 (150-375); Red Blood Count 3.51 M/mm3 (4.2-5.4); Red Cell Distribution Width 12.5 % (11.5-14.5); White Blood Count 12.4 K/mm3 (4.5-10.0)
[2022-11-30 18:26] LABS: Anion Gap 5 mmol/L (8-16); Blood Urea Nitrogen 10 mg/dL (7-17); Carbon Dioxide 27 mmol/L (22-30); Chloride 96 mmol/L (98-107); Estimated CRCL calculation 52 ml/min; Estimated Glomerular Filt Rate > 60; Glucose 93 mg/dL (65-110); Potassium 3.5 mmol/L (3.4-5.0); Sodium 128 mmol/L (137-145)
[2022-11-30 21:42] VITALS: BP 146/79; PULSE 93; RESP 18; TEMP 36.8; O2SAT 97
[2022-11-30] MEDS: ACETAMINOPHEN 325 MG TABLET 650 MG PO (23:30)
[2022-12-01 05:30] VITALS: BP 154/78; PULSE 68; RESP 17; TEMP 37.2; O2SAT 100
[2022-12-01] MEDS: SODIUM CHLORIDE 0.9% IV 1,000 ML 100 ML IV CONT (05:58)
[2022-12-01] MEDS: ENOXAPARIN 40 MG/0.4 ML SYRINGE SUB-Q (10:12)
[2022-12-01] MEDS: SODIUM CHLORIDE 1 GM TABLET PO ×3 (10:12→17:18)
[2022-12-01] MEDS: NICOTINE (*PBKC) 21 MG PATCH 1 PATCH TRANSDERM (10:13)
[2022-12-01] MEDS: ACETAMINOPHEN 325 MG TABLET 650 MG PO ×2 (10:21→17:21)
--- NOTE | 2022-12-01 11:32 | PM.IMPN ---
Progress Note: A&P Assessment and Plan (1) Recurrent falls: Code(s): R29.6 - Repeated falls Status: Acute (2) Hyponatremia: Code(s): E87.1 - Hypo-osmolality and hyponatremia Status: Acute (3) Closed L1 vertebral fracture: Code(s): S32.019A - Unspecified fracture of first lumbar vertebra, initial encounter for closed fracture Status: Acute (4) Syncope: Code(s): R55 - Syncope and collapse Status: Acute Plan ?82-year-old female past medical history significant for ETOH dependence, recurrent falls, patient comes to the emergency room due to lower back pain. Was found to have L1 and Sacral fracture along with hyponatremia. 1)Recurrent Falls: ?in setting of alcohol abuse PT/OT Echo unremarkable Carotid shows 50-69% stenosis on right,Obtain CT neck angio might benefit from outpatient vascular evaluation Will add ASA, Statin Obtain lipid panel 2)Lumbar and Sacral fracture: Pain control Will get ortho consult 3)Hyponatremia: ?2/2 alcohol abuse Will get renal consult Sodium level has improved since admission though Obtain TSH 4)Leucocytosis: UA on admission unremarkable Will get CXR, blood culture Hold off any abx for now 5)Alcohol Abuse: Has been stable Will add thiamine and folic acid CID[facility] protocol 6)Severe Malnutrition: Encourage PO intake 7)DVT ppx: lovenox 8)Code:Full 9)Dispo:pending improvement Time Spent With Patient Time with patient: 25 - 35 minutes Subjective Date/time seen: 12/01/22 11:32 Interval history: c/o back pain no Difficulty breathing Review of Systems Review of Systems: All systems reviewed & are unremarkable except as noted in HPI and below Constitutional: Constitutional: Reports no additional constitutional complaints Eyes: Eyes: Reports no additional eye complaints ENT: Reports system reviewed and no additional complaints, except as documented Cardiovascular: Cardiovascular: Reports no additional cardiovascular complaints Respiratory: Respiratory: Reports no additional respiratory complaints Gastrointestinal: Gastrointestinal: Reports no additional gastrointestinal complaints Musculoskeletal: Musculoskeletal: Reports back pain Neurologic: Reports system reviewed and no additional complaints, except as documented Exam Const: General: comfortable and no acute distress HENMT: Mouth: Yes moist mucous membranes Eyes: Sclera: sclerae normal Neck: Neck: supple Resp: Effort & Inspection: normal respiratory effort Auscultation: clear to auscultation bilaterally Cardio: Rate: regular rate Rhythm: regular rhythm GI: GI Palp: Yes Soft to palpation Auscultation: normal bowel sounds Neuro: Speech: normal speech Extrem: General: normal to inspection Psych: Mental Status: mental status grossly normal Objective Data Vital Signs Vital Signs: Vital Signs - 24 hr 11/30/22 14:28 11/30/22 21:42 12/01/22 05:30 Temperature 97.4 F L 98.3 F 98.9 F Pulse Rate 92 93 68 Respiratory Rate 17 18 17 Blood Pressure 139/82 146/79 H 154/78 H Pulse Oximetry 98 97 100 Intake/Output Intake/Output: Intake & Output 11/28/22 11/29/22 11/30/22 12/01/22 23:59 23:59 23:59 23:59 Intake Total 3760 2830 3235 1790 Output Total 1800 7068 926 9267 Balance 8449 360 2260 -110 Meds/Results Medications: Active Medications Generic Name Dose Route Start Last Admin Trade Name Freq PRN Reason Stop Dose Admin Acetaminophen 650 mg 11/26/22 21:36 12/01/22 10:21 Acetaminophen 325 Mg Tablet PO 650 mg Q6HR PRN Administration Mild Pain (1-3) or Fever Hydrocodone Bitart/Acetaminophen 1 tab 11/28/22 10:34 11/28/22 22:53 Hydrocodone/Acetaminophen (*Crx) 5-325 Mg Tablet PO 1 tab Q4H PRN Administration Pain Rated 4-6 Enoxaparin Sodium 40 mg 11/28/22 09:00 12/01/22 10:12 Enoxaparin 40 Mg/0.4 Ml Syringe SUB-Q 40 mg DAILY JANICE Administration Nicotine 1 patch 11/27/22 17:00 01
[2022-12-01 11:49] LABS: Basophils Absolute Auto 0.1 K/mm3 (0.0-0.1); Basophils Percent Auto 1.2 % (0.2-1.2); Eosinophils Absolute Auto 0.4 K/mm3 (0-0.3); Eosinophils Percent Auto 3.9 % (0-4.4); Hematocrit 34.3 % (37.0-47.0); Hemoglobin 11.5 g/dL (12.0-15.0); Immature Granulocyte Absolute 0.04 K/mm3 (0.00-0.031); Immature Granulocyte Percent A 0.4 % (0-0.5); Lymphocytes Absolute Auto 1.85 K/mm3 (0.9-3.2); Lymphocytes Percent Auto 20.1 % (18.3-44.2); Mean Corpuscular HGB Conc 33.5 g/dl (32-36); Mean Corpuscular Hemoglobin 32.3 pg (26-34); Mean Corpuscular Volume 96.3 fl (80-100); Mean Platelet Volume 9.7 fl (7.4-10.4); Monocytes Absolute Auto 0.5 K/mm3 (0.1-0.6); Monocytes Percent Auto 4.9 % (2.6-8.5); Neutrophils Absolute Auto 6.4 K/mm3 (1.3-6.7); Neutrophils Percent Auto 69.5 % (45.5-73.1); Platelet Count Result 323 k/mm3 (150-375); Red Blood Count 3.56 M/mm3 (4.2-5.4); Red Cell Distribution Width 12.6 % (11.5-14.5); White Blood Count 9.2 K/mm3 (4.5-10.0)
[2022-12-01 11:55] LABS: Alanine Aminotransferase 26 U/L (6-35); Alkaline Phosphatase 120 U/L (38-126); Anion Gap 8 mmol/L (8-16); Aspartate Amino Transferase 45 U/L (14-36); Bilirubin,Total 0.5 mg/dL (0.2-1.3); Blood Urea Nitrogen 6 mg/dL (7-17); Calcium 8.4 mg/dL (8.4-10.2); Carbon Dioxide 28 mmol/L (22-30); Chloride 94 mmol/L (98-107); Estimated CRCL calculation 66 ml/min; Estimated Glomerular Filt Rate > 60; Glucose 138 mg/dL (65-110); Potassium 3.3 mmol/L (3.4-5.0); Sodium 130 mmol/L (137-145)
[2022-12-01] MEDS: LIDOCAINE 5% PATCH 1 PATCH TRANSDERM (12:11)
--- NOTE | 2022-12-01 12:16 | PM.CNNEP ---
Assessment and Plan Assessment and plan (1) Hyponatremia: Code(s): E87.1 - Hypo-osmolality and hyponatremia Status: Acute Assessment and Plan: resolving unclear if this is acute or acute on chronic hyponatremia admission sodium 120mmol/L corrected quite quickly (< 24 hours) to 132mmol/L fluctuating in the 128 - 130mmol/L range over the last few days suspect a component of volume depletion/prerenal azotemia on admission (given improvement with normal saline IVF) risk factors for hyponatremia: smoking history excessive alcohol intake chronic pain issues now on salt tabs for completeness, will check TSH, cortisol, SPEP, UPEP, and serum/urine osmolality as well as urine electrolytes. follow trend of sodium levels (2) Closed L1 vertebral fracture: Code(s): S32.019A - Unspecified fracture of first lumbar vertebra, initial encounter for closed fracture Status: Acute Assessment and Plan: as noted by admission imaging pain control Orthopedic consultation (3) EtOH dependence: Code(s): F10.20 - Alcohol dependence, uncomplicated Status: Acute Assessment and Plan: monitor for withdrawal thiamine and folate (4) Recurrent falls: Code(s): R29.6 - Repeated falls Status: Acute Assessment and Plan: related hyponatremia versus alcohol dependence(?) PT/OT as tolerated Will continue to follow. History of Present Illness Reason for Consult Consult date: 12/01/22 Reason for consult: hyponatremia Chief Complaint Chief complaint: Hyponatremia History of Present Illness Narrative: The patient is 82-year-old female with a past medical history as outlined below who presented to [facility] Emergency room several days ago with complaints of abdominal and back pain. Apparently, the patient fell approximately 5 days prior to her presentation to the emergency room. Since that time, she has been having significant back pain but apparently, she has had an issue with chronic back pain even prior to the fall. She does not really give any other symptoms other than some occasional nausea. Further complicating matters is that her family reports fluctuating confusion in the last few days as well. Given these acute issues, she presented to the emergency room via her family for further assessment Workup and evaluation emergency room demonstrated the patient be hemodynamically stable and routine blood tests were significant for significant hyponatremia with a sodium of 120. She had no other acute complaints other than the a for mentioned back pain with regard to chest pain, shortness of breath, palpitations, dizziness, lightheadedness, or syncope. She apparently has not seen a physician in over 20 years. Along with the significant hyponatremia by blood work, the patient when a CT scan of her thoracic/lumbar spine which demonstrated nondisplaced bilateral zone 1 sacral fractures. Given her laboratory abnormalities and these imaging studies, she was admitted hospital for further evaluation therapy Since her admission, her sodium was corrected with a combination of normal saline IV fluids and she has since been started on salt tablets with her most recent sodium running in the 130ish range. Renal consultation was requested due to the a for mention hyponatremia. As already mentioned, her sodium level corrected from 120-132 millimoles per L and less than 24 hours but she did not appear to suffer any type of sequelae from this fairly rapid correction. She is currently on salt tablets and has maintained her sodium level in the 138 range. Unfortunately, since she has not seen a physician almost 20 years, is unclear how acute or chronic this issue is with regard to her low sodium levels. However her risk factors for hyponatremia include excessive alcohol intake, her chronic pain issues, and her extensive smoking history. Currently, at the time my evaluation
--- NOTE | 2022-12-01 13:31 | PCPTNOTE ---
Attempted to see patient for PT, however patient reported she was still eating her lunch and asked if PT can come back.
--- NOTE | 2022-12-01 14:25 | PCPTNOTE ---
Patient refused treatment this session. Patient reported she does not feel like it today. Attempted to encourage patient to participate in therapy, patient continued to refuse.
--- NOTE | 2022-12-01 14:45 | PCOTNOTE ---
Attempted to see Patient for P.M. treatment session. Patient refused to participate this date. Patient verbalized, I'm just having a down in the day and I'm depressed. I just want left alone today, I'll do something tomorrow .
[2022-12-01 16:47] VITALS: BP 131/66; PULSE 68; RESP 18; TEMP 36.9; O2SAT 99
[2022-12-01 18:44] LABS: Total Protein Urine Random 12 mg/dL
[2022-12-01 18:45] LABS: Sodium Urine Random 97 meq/L
[2022-12-01 21:08] VITALS: BP 152/88; PULSE 95; RESP 18; TEMP 36.6; O2SAT 99
[2022-12-02] MEDS: HYDROcodone/acetaminophen (*CRX) 5-325 MG TABLET 1 TAB PO ×4 (00:50→22:39)
[2022-12-02 05:07] VITALS: BP 122/66; PULSE 64; RESP 17; TEMP 36.5; O2SAT 100
[2022-12-02 06:50] LABS: Basophils Absolute Auto 0.1 K/mm3 (0.0-0.1); Basophils Percent Auto 0.9 % (0.2-1.2); Eosinophils Absolute Auto 0.4 K/mm3 (0-0.3); Eosinophils Percent Auto 4.8 % (0-4.4); Hematocrit 28.9 % (37.0-47.0); Hemoglobin 9.9 g/dL (12.0-15.0); Immature Granulocyte Absolute 0.02 K/mm3 (0.00-0.031); Immature Granulocyte Percent A 0.3 % (0-0.5); Lymphocytes Absolute Auto 1.99 K/mm3 (0.9-3.2); Lymphocytes Percent Auto 25.9 % (18.3-44.2); Mean Corpuscular HGB Conc 34.3 g/dl (32-36); Mean Corpuscular Hemoglobin 31.7 pg (26-34); Mean Corpuscular Volume 92.6 fl (80-100); Mean Platelet Volume 9.5 fl (7.4-10.4); Monocytes Absolute Auto 0.7 K/mm3 (0.1-0.6); Monocytes Percent Auto 9.6 % (2.6-8.5); Neutrophils Absolute Auto 4.5 K/mm3 (1.3-6.7); Neutrophils Percent Auto 58.5 % (45.5-73.1); Platelet Count Result 281 k/mm3 (150-375); Red Blood Count 3.12 M/mm3 (4.2-5.4); Red Cell Distribution Width 12.6 % (11.5-14.5); White Blood Count 7.7 K/mm3 (4.5-10.0)
[2022-12-02 07:00] LABS: Potassium 3.5 mmol/L (3.4-5.0)
[2022-12-02 07:12] LABS: LDL Cholesterol Direct 77 mg/dL
[2022-12-02 07:29] LABS: Anion Gap 4 mmol/L (8-16); Blood Urea Nitrogen 7 mg/dL (7-17); Calcium 8.1 mg/dL (8.4-10.2); Carbon Dioxide 29 mmol/L (22-30); Chloride 97 mmol/L (98-107); Cholesterol 146 mg/dL (0-200); Estimated CRCL calculation 66 ml/min; Estimated Glomerular Filt Rate > 60; Glucose 91 mg/dL (65-110); HDL Direct 46 mg/dL; Sodium 130 mmol/L (137-145); Triglycerides 65 mg/dL (<150)
[2022-12-02 07:30] LABS: Cortisol Random 4.96 ug/dL
[2022-12-02 08:53] LABS: Free T4 Free Thyroxine Reflex 0.86 ng/dL (0.78-2.19)
--- NOTE | 2022-12-02 09:31 | PM.CNOR ---
History of Present Illness HPI Consult date: 12/02/22 Chief complaint: Hyponatremia PMFSH Family History Family History (Updated 11/27/22 @ 17:00 by Fernanda Mendoza RN) Father Alzheimer disease Mother Alzheimer disease Sibling Diabetes mellitus Social History Social History (Updated 11/26/22 @ 20:05 by Sandra Salazar APRN) Smoking packs per day: 2 Smoking cigarettes per day: 40.0 Years smoked: 30 Smoking pack-years: 60.00 Smoking status: Current every day smoker Alcohol intake: current Drinks per week: 21 Alcohol use details: patient states she drinks 4-5 beers daily. Substance use: never Lack of Transportation: No Lack of Food: Never True Current Housing: I Have Housing Concerned About Future Housing: No Difficulty Paying Gas/Electric Bills: No Difficulty Paying for Meds: No Currently Unemployed: No Education: High School Diploma/GED Difficulty w/ Childcare or Family Care: No Living arrangements: with family Spiritual care concerns: No Meds Home Medications and Allergies Home Medications Medication Instructions Recorded Confirmed Type ibuprofen 100 mg tablet 200 mg PO Q6H PRN Pain 11/27/22 11/27/22 History Allergies Allergy/AdvReac Type Severity Reaction Status Date / Time No Known Allergies Allergy Verified 11/25/22 12:45 Vital Signs Vital Signs - 24 hr 12/01/22 16:47 12/01/22 10:13 12/01/22 21:08 Temperature 36.9 C 36.6 C Pulse Rate 68 95 Respiratory Rate 18 18 Blood Pressure 131/66 152/88 H Pulse Oximetry 99 99 Oxygen Delivery Room Air 12/02/22 05:07 Temperature 36.5 C Pulse Rate 64 Respiratory Rate 17 Blood Pressure 122/66 Pulse Oximetry 100 Oxygen Delivery Results Labs 12/02/22 06:10 12/02/22 06:10 Labs: Abnormal lab results 12/01/22 12/01/22 12/01/22 Range/Units 10:04 10:04 17:57 RBC 3.56 L (4.2-5.4) M/mm3 Hgb 11.5 L (12.0-15.0) g/dL Hct 34.3 L (37.0-47.0) % [place] % (Auto) (2.6-8.5) % Eos % (Auto) (0-4.4) % [place] # (Auto) (0.1-0.6) K/mm3 Eos # (Auto) 0.4 H (0-0.3) K/mm3 Abs Immat Gran (auto) 0.04 H (0.00-0.031) K/mm3 Sodium 130 L (137-145) mmol/L Potassium 3.3 L (3.4-5.0) mmol/L Chloride 94 L (98-107) mmol/L Anion Gap (8-16) mmol/L BUN 6 L (7-17) mg/dL Creatinine 0.30 L (0.7-1.0) mg/dL Glucose 138 H (65-110) mg/dL Calcium (8.4-10.2) mg/dL AST 45 H (14-36) U/L TSH (Reflex) (0.465-4.68) uIU/mL Protein/Creat Ratio 2 0.60 H (0-0.20) mg/mg 12/02/22 12/02/22 12/02/22 Range/Units 06:10 06:10 06:10 RBC 3.12 L (4.2-5.4) M/mm3 Hgb 9.9 L (12.0-15.0) g/dL Hct 28.9 L (37.0-47.0) % [place] % (Auto) 9.6 H (2.6-8.5) % Eos % (Auto) 4.8 H (0-4.4) % [place] # (Auto) 0.7 H (0.1-0.6) K/mm3 Eos # (Auto) 0.4 H (0-0.3) K/mm3 Abs Immat Gran (auto) (0.00-0.031) K/mm3 Sodium 130 L (137-145) mmol/L Potassium (3.4-5.0) mmol/L Chloride 97 L (98-107) mmol/L Anion Gap 4 L (8-16) mmol/L BUN (7-17) mg/dL Creatinine 0.30 L (0.7-1.0) mg/dL Glucose (65-110) mg/dL Calcium 8.1 L (8.4-10.2) mg/dL AST (14-36) U/L TSH (Reflex) 7.410 H (0.465-4.68) uIU/mL Protein/Creat Ratio 2 (0-0.20) mg/mg H & H 11/26/22 11/29/22 11/29/22 Range/Units 18:16 12:23 17:20 Hgb 13.1 11.4 L 11.8 L (12.0-15.0) g/dL Hct 37.2 33.5 L 34.6 L (37.0-47.0) % 11/30/22 12/01/22 12/02/22 Range/Units 17:30 10:04 06:10 Hgb 11.3 L 11.5 L 9.9 L (12.0-15.0) g/dL Hct 33.7 L 34.3 L 28.9 L (37.0-47.0) % All other labs normal.
[2022-12-02 09:42] LABS: Total Triiodothyronine (T3) 1.24 NG/ML (0.97-1.69)
[2022-12-02] MEDS: ENOXAPARIN 40 MG/0.4 ML SYRINGE SUB-Q (09:48)
[2022-12-02] MEDS: SODIUM CHLORIDE 1 GM TABLET PO ×3 (09:48→18:47)
[2022-12-02] MEDS: ATORVASTATIN 10 MG TABLET PO (09:48)
[2022-12-02] MEDS: NICOTINE (*PBKC) 21 MG PATCH 1 PATCH TRANSDERM (09:48)
[2022-12-02] MEDS: ASPIRIN 81 MG CHEWABLE TABLET PO (09:48)
[2022-12-02] MEDS: FOLIC ACID 1 MG TABLET PO (09:49)
[2022-12-02] MEDS: LIDOCAINE 5% PATCH 1 PATCH TRANSDERM (09:49)
[2022-12-02] MEDS: THIAMINE HCL 100 MG TABLET PO (09:49)
--- NOTE | 2022-12-02 09:51 | P.PNNP_ITS ---
Progress Note: A&P Assessment and Plan (1) Hyponatremia: Code(s): E87.1 - Hypo-osmolality and hyponatremia Status: Acute Assessment and Plan: * relatively stable * unclear if this is acute or acute on chronic hyponatremia (suspect a chronic issue) * admission sodium 120mmol/L * corrected quite quickly (< 24 hours) to 132mmol/L * fluctuating in the 128 - 130mmol/L range currently * suspect a component of volume depletion/prerenal azotemia on admission (given improvement with normal saline IVF) * risk factors for hyponatremia: * smoking history * excessive alcohol intake * chronic pain issues * now on salt tabs * evaluation to date: * TSH elevated but T3/T4 okay * cortisol level low -- check stim test * SPEP/UEP and serum/urine osmolality pending * urine electrolytes non-prerenal * follow trend of sodium levels (2) Closed L1 vertebral fracture: Code(s): S32.019A - Unspecified fracture of first lumbar vertebra, initial encounter for closed fracture Status: Acute Assessment and Plan: * as noted by admission imaging * pain control * Orthopedic consultation/recommendations noted (3) EtOH dependence: Code(s): F10.20 - Alcohol dependence, uncomplicated Status: Acute Assessment and Plan: * monitor for withdrawal * thiamine and folate (4) Recurrent falls: Code(s): R29.6 - Repeated falls Status: Acute Assessment and Plan: * related hyponatremia versus alcohol dependence(?) * PT/OT as tolerated Will continue to follow. Subjective Date/time seen: 12/02/22 09:51 Appears to be doing reasonably well at the time of my visit; sodium continues to improve with current interventions noted; no apparent distress at this time. Exam Narrative: General: WD/WN female in NAD Heart: normal S1 and S2; no rub Lungs: clear to auscultation Abdomen: soft, nontender, nondistended, positive bowel sounds Extremities: no cyanosis or clubbing; no edema Skin: warm and dry Objective Data Vital Signs Vital Signs: Vital Signs Temp Pulse Resp BP Pulse Ox O2 Del Method 12/02/22 05:07 97.7 F 64 17 122/66 100 12/01/22 21:08 97.9 F 95 18 152/88 H 99 12/01/22 10:13 Room Air 12/01/22 16:47 98.4 F 68 18 131/66 99 Intake/Output Intake/Output: Intake & Output 11/29/22 11/30/22 12/01/22 12/02/22 23:59 23:59 23:59 23:59 Intake Total 2830 3235 2030 550 Output Total 8256 906 2049 1100 Balance 880 4806 -485 -990 Meds/Results Medications: Active Medications Generic Name Dose Route Start Last Admin Trade Name Freq PRN Reason Stop Dose Admin Acetaminophen 650 mg 11/26/22 21:36 12/01/22 17:21 Acetaminophen 325 Mg Tablet PO 650 mg Q6HR PRN Administration Mild Pain (1-3) or Fever Hydrocodone Bitart/Acetaminophen 1 tab 11/28/22 10:34 12/02/22 00:50 Hydrocodone/Acetaminophen (*Crx) 5-325 Mg Tablet PO 1 tab Q4H PRN Administration Pain Rated 4-6 Aspirin 81 mg 12/02/22 08:00 Aspirin 81 Mg Chewable Tablet PO DAILY@0800 [facility] Atorvastatin Calcium 10 mg 12/02/22 09:00 Atorvastati
--- NOTE | 2022-12-02 09:51 | PM.PNNEP ---
Progress Note: A&P Assessment and Plan (1) Hyponatremia: Code(s): E87.1 - Hypo-osmolality and hyponatremia Status: Acute Assessment and Plan: relatively stable unclear if this is acute or acute on chronic hyponatremia (suspect a chronic issue) admission sodium 120mmol/L corrected quite quickly (< 24 hours) to 132mmol/L fluctuating in the 128 - 130mmol/L range currently suspect a component of volume depletion/prerenal azotemia on admission (given improvement with normal saline IVF) risk factors for hyponatremia: smoking history excessive alcohol intake chronic pain issues now on salt tabs evaluation to date: TSH elevated but T3/T4 okay cortisol level low -- check stim test SPEP/UEP and serum/urine osmolality pending urine electrolytes non-prerenal follow trend of sodium levels (2) Closed L1 vertebral fracture: Code(s): S32.019A - Unspecified fracture of first lumbar vertebra, initial encounter for closed fracture Status: Acute Assessment and Plan: as noted by admission imaging pain control Orthopedic consultation/recommendations noted (3) EtOH dependence: Code(s): F10.20 - Alcohol dependence, uncomplicated Status: Acute Assessment and Plan: monitor for withdrawal thiamine and folate (4) Recurrent falls: Code(s): R29.6 - Repeated falls Status: Acute Assessment and Plan: related hyponatremia versus alcohol dependence(?) PT/OT as tolerated Will continue to follow. Subjective Date/time seen: 12/02/22 09:51 Appears to be doing reasonably well at the time of my visit; sodium continues to improve with current interventions noted; no apparent distress at this time. Exam Narrative: General: WD/WN female in NAD Heart: normal S1 and S2; no rub Lungs: clear to auscultation Abdomen: soft, nontender, nondistended, positive bowel sounds Extremities: no cyanosis or clubbing; no edema Skin: warm and dry Objective Data Vital Signs Vital Signs: Vital Signs Temp Pulse Resp BP Pulse Ox O2 Del Method 12/02/22 05:07 97.7 F 64 17 122/66 100 12/01/22 21:08 97.9 F 95 18 152/88 H 99 12/01/22 10:13 Room Air 12/01/22 16:47 98.4 F 68 18 131/66 99 Intake/Output Intake/Output: Intake & Output 01/06/1411/30/22 12/01/22 12/02/22 23:59 23:59 23:59 23:59 Intake Total 2830 3235 2030 550 Output Total 6016 699 9055 1100 Balance 880 2335 -170 550 Meds/Results Medications: Active Medications Generic Name Dose Route Start Last Admin Trade Name Freq PRN Reason Stop Dose Admin Acetaminophen 650 mg 11/26/22 21:36 12/01/22 17:21 Acetaminophen 325 Mg Tablet PO 650 mg Q6HR PRN Administration Mild Pain (1-3) or Fever Hydrocodone Bitart/Acetaminophen 1 tab 11/28/22 10:34 12/02/22 00:50 Hydrocodone/Acetaminophen (*Crx) 5-325 Mg Tablet PO 1 tab Q4H PRN Administration Pain Rated 4-6 Aspirin 81 mg 12/02/22 08:00 Aspirin 81 Mg Chewable Tablet PO DAILY@0800 [facility] Atorvastatin Calcium 10 mg 12/02/22 09:00 Atorvastatin 10 Mg Tablet PO DAILY [facility] Enoxaparin Sodium 40 mg 11/28/22 09:00 12/01/22 10:12 Enoxaparin 40 Mg/0.4 Ml Syringe SUB-Q 40 mg DAILY [facility] Administration Folic Acid 1 mg 12/02/22 09:00 Folic Acid 1 Mg Tablet PO DAILY [facility] Lidocaine 1 patch 12/01/22 09:00 12/01/22 12:11 Lidocaine 5% Patch TRANSDERM 1 patch DAILY [facility] Administration Nicotine 1 patch 11/27/22 17:00 12/01/22 10:13 Nicotine (*Pbkc) 21 Mg Patch TRANSDERM 1 patch QAM [facility] Administration Ondansetron HCl 4 mg 11/26/22 21:36 Ondansetron Inj 4 Mg/2 Ml Vial IV PUSH Q6H PRN Nausea And Vomiting Sodium Chloride 1 gm 11/30/22 09:00 12/01/22 17:18 Sodium Chloride 1 Gm Tablet PO 1 gm TID [facility] Administration Thiamine HCl 100 mg 12/02/22 09:00 Thiamine Hcl 100 Mg Tablet PO QAM [facility]
--- NOTE | 2022-12-02 13:03 | PM.IMPN ---
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,Obtain CT neck angio might benefit from outpatient vascular evaluation Continue ASA, Statin 2)Lumbar and Sacral fracture: Pain control Continue PT/ OT in hospital Orthopedic consulted 3)Hyponatremia: Sodium is 130 cont to monitor Awaiting renal consult Likely secondary to alcoholism 4)Leucocytosis: Hold off any abx for now 5)Alcohol Abuse: Has been stable Will add thiamine and folic acid CIWA protocol 6)Severe Malnutrition: Encourage PO intake 7)DVT ppx: lovenox plan DC home with home health in 2-3 days time Subjective Date/time seen: 12/02/22 13:03 82-year-old female past medical history significant for ETOH dependence, recurrent falls, patient comes to the emergency room due to lower back pain. Pt complains of lower back pain and left buttock pain. Pt found to have L1 and Sacral fracture along with hyponatremia. Pt participating in Physical therapy today. Pt has steps outside her flat, needs more therapy before discharging with home with home health Review of Systems Review of Systems: Ongoing lower back pain Exam Resp: Effort & Inspection: normal respiratory effort and able to speak in complete sentences Auscultation: clear to auscultation bilaterally Cardio: Jugular venous distension: no JVD Rate: regular rate Rhythm: regular rhythm Heart sounds: S1 normal heart sound present and S2 normal heart sound present GI: Auscultation: normal bowel sounds Back/Spine/Pelvis: Other: Spasms at the lumbar area Neuro: General: patient oriented x3, CN's II-XI intact bilaterally and Unable to assess gait Cranial nerves: Yes CN's II-XII intact bilaterally and Yes Equal, round and reactive pupils present Cognition (Neuro): normal cognition Speech: normal speech Gait exam (Neuro): Unable to assess gait Motor exam (neuro): 5/5 motor strength present throughout Sensory Exam: No Sensory deficit (Neuro) Extrem: General: normal to inspection, full ROM, no joint enlargement and no pedal edema Psych: Mental Status: mental status grossly normal Objective Data Vital Signs Vital Signs: Vital Signs - 24 hr 12/01/22 16:47 12/01/22 21:08 12/02/22 05:07 Temperature 36.9 C 36.6 C 36.5 C Pulse Rate 68 95 64 Respiratory Rate 18 18 17 Blood Pressure 131/66 152/88 H 122/66 Pulse Oximetry 99 99 100 Intake/Output Intake/Output: Intake & Output 11/29/22 11/30/22 12/01/22 12/02/22 23:59 23:59 23:59 23:59 Intake Total 2830 3235 2030 790 Output Total 9839 065 8810 1100 Balance 880 2335 -170 -310 Meds/Results Medications: Active Medications Generic Name Dose Route Start Last Admin Trade Name Freq PRN Reason Stop Dose Admin Acetaminophen 650 mg 11/26/22 21:36 12/01/22 17:21 Acetaminophen 325 Mg Tablet PO 650 mg Q6HR PRN Administration Mild Pain (1-3) or Fever Hydrocodone Bitart/Acetaminophen 1 tab 11/28/22 10:34 12/02/22 10:03 Hydrocodone/Acetaminophen (*Crx) 5-325 Mg Tablet PO 1 tab Q4H PRN Administration Pain Rated 4-6 Aspirin 81 mg 12/02/22 08:00 12/02/22 09:48 Aspirin 81 Mg Chewable Tablet PO 81 mg DAILY@0800 [facility] Administration Atorvastatin Calcium 10 mg 12/02/22 09:00 12/02/22 09:48 Atorvastatin 10 Mg Tablet PO 10 mg DAILY [facility] Administration Enoxaparin Sodium 40 mg 11/28/22 09:00 12/02/22 09:48 Enoxaparin 40 Mg/0.4 Ml Syringe SUB-Q 40 mg DAILY [facility] Administratio
--- NOTE | 2022-12-02 13:15 | PM.CNOR ---
Assessment and Plan Assessment and plan (1) Sacral fracture, closed: Code(s): S32.10XA - Unspecified fracture of sacrum, initial encounter for closed fracture Status: Acute Assessment and Plan: New patient evaluation for chief complaint low back and radiating left leg pain. History, physical exam and radiographs reviewed with the patient. CT scan shows bilateral sacral insufficiency fractures with minimal displacement Discussed the condition, nature, etiology and course of natural history with the patient. Treatment options including surgical and nonoperative treatment were reviewed. Risks and benefits of each as well as alternatives reviewed. The patient's questions were answered. Conservative treatment ice, compression and elevation. recommend conservative treatment with pain management. Patient may be weight-bearing as tolerated. PT/OT to assist with ambulation. Okay for discharge when medically stable per History of Present Illness HPI Consult date: 12/02/22 Requesting physician: Danette Smith MD Chief complaint: Hyponatremia Narrative: 82-year-old woman admitted to the hospital with hyponatremia and history of multiple falls. CT scan shows pelvis fracture. Review of Systems Constitutional: Constitutional: Denies fever(s) Eyes: Eyes: Denies blurry vision ENT: Reports Normal hearing present Cardiovascular: Cardiovascular: Denies chest pain and Denies dyspnea Respiratory: Respiratory: Denies dyspnea and Denies wheezing Gastrointestinal: Gastrointestinal: Denies abdominal pain Genitourinary: Genitourinary: Denies urinary urgency Musculoskeletal: Musculoskeletal: Reports as per HPI and Denies numbness Integumentary/Breasts: Skin/Breast: Denies changing lesions and Denies sores Neurologic: Reports Normal hearing present, Denies behavioral changes, Denies confusion, Denies numbness and Denies convulsions Psychiatric: Psychiatric: Denies behavioral changes, Denies confusion and Denies hallucinations Endocrine: Endocrine: Denies heat intolerance Hematologic/Lymphatic: Hematologic/Lymphatic: Denies easy bleeding Allergic/Immunologic: Allergic/Immunologic: Denies wheezing PMFSH Past Medical History Medical History (Updated 12/02/22 @ 13:17 by Juan Gandara MD) Sacral fracture, closed Family History Family History Father Alzheimer disease Mother Alzheimer disease Sibling Diabetes mellitus Social History Social History Smoking packs per day: 2 Smoking cigarettes per day: 40.0 Years smoked: 30 Smoking pack-years: 60.00 Smoking status: Current every day smoker Alcohol intake: current Drinks per week: 21 Alcohol use details: patient states she drinks 4-5 beers daily. Substance use: never Lack of Transportation: No Lack of Food: Never True Current Housing: I Have Housing Concerned About Future Housing: No Difficulty Paying Gas/Electric Bills: No Difficulty Paying for Meds: No Currently Unemployed: No Education: High School Diploma/GED Difficulty w/ Childcare or Family Care: No Living arrangements: with family Spiritual care concerns: No Meds Home Medications and Allergies Home Medications Medication Instructions Recorded Confirmed Type ibuprofen 100 mg tablet 200 mg PO Q6H PRN Pain 11/27/22 11/27/22 History Allergies Allergy/AdvReac Type Severity Reaction Status Date / Time No Known Allergies Allergy Verified 11/25/22 12:45 Vital Signs Vital Signs - 24 hr 12/01/22 16:47 12/01/22 21:08 12/02/22 05:07 Temperature 98.4 F 97.9 F 97.7 F Pulse Rate 68 95 64 Respiratory Rate 18 18 17 Blood Pressure 131/66 152/88 H 122/66 Pulse Oximetry 99 99 100 Exam Const: General: No confusion Orientation/consciousness: No confusion HENMT: Head: normal to inspection, normocephalic and atraumatic Eyes: Co
[2022-12-02 14:00] VITALS: BP 119/66; PULSE 99; RESP 18; TEMP 36.4; O2SAT 99
[2022-12-02 21:33] VITALS: BP 118/83; PULSE 95; RESP 18; TEMP 36.7; O2SAT 96
[2022-12-03 06:00] VITALS: BP 134/61; PULSE 77; RESP 20; TEMP 36.8; O2SAT 98
[2022-12-03 08:00] VITALS: BP 118/83
[2022-12-03 08:08] LABS: Albumin Level 3.5 g/dL (3.5-5.1); Anion Gap 4 mmol/L (8-16); Blood Urea Nitrogen 10 mg/dL (7-17); Calcium 8.3 mg/dL (8.4-10.2); Carbon Dioxide 30 mmol/L (22-30); Chloride 95 mmol/L (98-107); Estimated CRCL calculation 66 ml/min; Estimated Glomerular Filt Rate > 60; Glucose 91 mg/dL (65-110); Phosphorus 4.9 mg/dL (2.5-4.5); Potassium 4.4 mmol/L (3.4-5.0); Sodium 129 mmol/L (137-145)
[2022-12-03] MEDS: SODIUM CHLORIDE 1 GM TABLET PO ×2 (09:30→12:20)
[2022-12-03] MEDS: LIDOCAINE 5% PATCH 1 PATCH TRANSDERM (09:30)
[2022-12-03] MEDS: FOLIC ACID 1 MG TABLET PO (09:30)
[2022-12-03] MEDS: ENOXAPARIN 40 MG/0.4 ML SYRINGE SUB-Q (09:30)
[2022-12-03] MEDS: ASPIRIN 81 MG CHEWABLE TABLET PO (09:30)
[2022-12-03] MEDS: THIAMINE HCL 100 MG TABLET PO (09:30)
[2022-12-03] MEDS: ATORVASTATIN 10 MG TABLET PO (09:30)
[2022-12-03] MEDS: NICOTINE (*PBKC) 21 MG PATCH 1 PATCH TRANSDERM (09:31)
--- NOTE | 2022-12-03 09:50 | PCNFU ---
Nutrition Follow-Up Complete: Severe malnutrition as related to weight loss and muscle wasting as evidenced by Significant weight loss of 25% in the past 6 months and muscle wasting in the temples,deltoids and clavicles. Goal: Adequate Intake of at least 75% of meals/supplements Patient is meeting current goal. Pt current nutrition is Regular. Last recorded weight is 36 kg, recommend a new weight. Bowel Motility:Last reported BM 11/28 Labs Reviewed:Cr 0.3,Na 129 Meds Noted:Lovenox, Thiamine, Folic Acid. Skin: WNL Additional Notes: Patient seen today for nutrition follow up. Tolerating regular diet. Diet supplements remain as Ensure Pudding once daily providing 240 kcals and 9 gms protein and Ensure Enlive once daily providing 350 kcals and 20 gms protein. Patient is consuming most supplements. Agree with diet orders. Monitoring: RD will monitor every 7 days.
--- NOTE | 2022-12-03 11:36 | PM.DS ---
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% stenosis on right,Obtain CT neck angio might benefit from outpatient vascular evaluation Continue ASA, Statin 2)Lumbar and Sacral fracture: Pain control Continue PT/ OT in hospital Orthopedic consulted 3)Hyponatremia: Sodium is 130 cont to monitor Awaiting renal consult Likely secondary to alcoholism 4)Leucocytosis: Hold off any abx for now 5)Alcohol Abuse: Has been stable Will add thiamine and folic acid CIPA protocol 6)Severe Malnutrition: Encourage PO intake 7)DVT ppx: lovenox plan DC home with home health in 2-3 days time DS: Summary Hospital Course Hospital Course: 82-year-old female past medical history significant for ETOH dependence, recurrent falls, patient comes to the emergency room due to lower back pain.? Patient was brought for evaluation by family members drinks 3-4? beers daily denies any nausea, vomiting, diarrhea, fevers, shortness of breath, sputum production.? Preliminary workup was significant for chemistry panel with a sodium 120. Echo was done showing an EF of 60-65% normal diastolic dysfunction, no pulmonary hypertension and minimal valvular disease. Nephrology was consulted and noted that sodium quickly resolved to 130 which appears to be her baseline. No further management recommended, follow-up outpatient with Nephrology. They recommended she quit drinking his alcoholism appears to be contributing to her chronic hyponatremia. Low back pain was thought to be secondary to bilateral sacral insufficiency fractures with minimal displacement. Orthopedic surgery was consulted and recommended weight-bearing as tolerated with conservative medical management and that she was okay to discharge. PT/OT were consulted and recommended SNF at d/c. Patient refused and is adamant that she is going home with her spouse. 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 Patient not interested in surgical interventions at this time, but would like to discuss options with vascular surgery. CTA head and neck ordered and pending, follow up at [facility] vascular surgery info given. Repeat BMP ordered in 1 week to follow hyponatremia. Time Spent with Patient Time attestation: Total time spent providing and/or coordinating discharge services: Exam Narrative: General: No acute distress, alert and oriented per baseline HEENT: Atraumatic, normocephalic, mucous membranes moist CV: Regular rate and rhythm, S1, S2 Lungs: Clear to auscultation bilaterally, no rales or crackles noted, no wheezes, good air entry Abdomen: Soft, nontender, nondistended Extremities: Normal to inspection Skin: No rashes noted, no lesions or wounds seen Psych: Euthymic, normal affect DS: Data Data Completed and Pending Labs on day of discharge: Labs from last 24 hours 12/03/22 07:50 Sodium 129 L Potassium 4.4 Chloride 95 L Carbon Dioxide 30 Anion Gap 4 L BUN 10 Creatinine 0.30 L Estim Creat Clear Calc 66 Estimated GFR > 60 Glucose 91 Calcium 8.3 L Phosphorus 4.9 H Albumin 3.5 Preliminary micro results at discharge 12/01/22 10:04 Blood Culture - Preliminary Blood 12/01/22 10:06 Blood Culture - Preliminary Blood Discharge Plan Discharge Attending physic
[2022-12-03 14:00] VITALS: BP 159/77; PULSE 97; RESP 18; TEMP 36.9; O2SAT 98
[2022-12-03] MEDS: HYDROcodone/acetaminophen (*CRX) 5-325 MG TABLET 1 TAB PO (16:19)
[2022-12-03 22:51] LABS: Osmolality, Urine 351 mOsm/kg (50-1200)
[2022-12-04 19:59] LABS: Kappa\\Lambda Light Chains 1.83 (0.26-1.65); Lambda Light Chain 8.2 mg/L (5.7-26.3)
[2022-12-05 15:23] LABS: Chloride Rand Ur 79 mmol/L (32-290); Chloride/Creatinine Rand Ur 465 (38-318); Creatinine Random Urine 17 mg/dL (20-275)
[2022-12-05 19:56] LABS: Albumin 3.1 g/dL (3.8-4.8); Alpha 1 Globulin 0.4 g/dL (0.2-0.3); Alpha 2 Globulin 0.7 g/dL (0.5-0.9); Beta 1 Globulin 0.3 g/dL (0.4-0.6); Gamma Globulin 0.6 g/dL (0.8-1.7); Protein, Total 5.3 g/dL (6.1-8.1)
[2022-12-07 00:41] LABS: Creatinine, Random Urine 22 mg/dL (20-275); Total Protein/Creatinine Ratio 227 mg/g creat (24-184)
== END 2022-12-03 16:24 | disposition home or self-care (01) | DRG 641 ==
LOC: ANHED 21:50 → ANH3MEDSUR 11-27 00:09 → ANH2MED 11-27 16:03
PROVIDERS: Emergency Medicine; Hospitalist; Internal Medicine; Internal Medicine Nephrology; Admitting Provider Internal Medicine; Emergency Provider Nurse Practitioner Adult Health; Visit Provider Student in an Organized Health Care Education/Training Program
DX: E87.1 Hypo-osmolality and hyponatremia (principal); S32.14XA Type 1 fracture of sacrum, initial encounter for closed fracture; E46 Unspecified protein-calorie malnutrition; Z68.1 Body mass index [BMI] 19.9 or less, adult; W19.XXXA Unspecified fall, initial encounter; Z20.822 Contact with and (suspected) exposure to COVID-19; F10.20 Alcohol dependence, uncomplicated; R55 Syncope and collapse; R29.6 Repeated falls; D72.829 Elevated white blood cell count, unspecified; F17.210 Nicotine dependence, cigarettes, uncomplicated
CPT/HCPCS: 36415; 70496; 70498; 71046; 72128; 72131; 80048; 80053; 80061; 80069; 81001; 81050; 82436; 82533; 82570; 83690; 83883; 83930; 83935; 84155; 84156; 84165; 84166; 84300; 84439; 84443; 84480; 85025; 85027; 87040; 87636; 93005; 93306; 93880; 96361; 96372; 96374; 97110; 97116; 97161; 97165; 97530; 97535; 99285; A9270; G0378; J1650; J2270; J7030; Q9967

== ENCOUNTER → 2023-05-15 12:35 | Outpatient (CLI) | payer MEDICARE, SELFPAY ==
--- NOTE | ~2023-05-15 | CT_ITS ---
CT Scan of the Chest without Contrast: Clinical Indication: Solitary pulmonary nodule Technique: Contiguous sections were acquired throughout the chest without intravenous contrast. Dose reduction technique was used on this scan by utilizing automated exposure control and iterative recon struction technique. The dose-length product (DLP) was 126.43 mGy-cm. Findings: There is no evidence of any significant mediastinal, hilar or axillary lymphadenopathy. Coronary elfego ry calcifications are present. Ascending aorta measures up to 4.5 cm in diameter. There are atheroscl erotic calcifications of the aorta. There is no evidence of pleural or pericardial effusion. There is mild biapical scarring. There is mild to moderate emphysema. There is focal groundglass opac ity posteriorly in the right lower lobe (axial image 77). There is minimal bibasilar scarring.. Images through the upper abdomen reveal no abnormalities. Impression: Focal area of groundglass opacity posteriorly in the right lower lobe, nonspecific. Focal pneumonia i s a consideration. Mild to moderate emphysema with biapical and bibasilar scarring. Ascending aortic aneurysm measures 4.5 cm in diameter. Reviewed, dictated and finalized at [facility]. Impression: Focal area of groundglass opacity posteriorly in the right lower lobe, nonspeci fic. Focal pneumonia is a consideration. Mild to moderate emphysema with biapical and bibasilar scarring. Ascending aortic aneurysm measures 4.5 cm in diameter.
== END ==
PROVIDERS: PCP Physician Assistant; Visit Provider Physician Assistant
DX: J43.9 Emphysema, unspecified (principal); I71.21 Aneurysm of the ascending aorta, without rupture; R91.8 Other nonspecific abnormal finding of lung field
CPT/HCPCS: 71250

== ENCOUNTER 2023-09-07 15:34 | Outpatient (CLI) | payer MEDICARE, SELFPAY ==
[2023-09-07 16:08] LABS: Basophils Absolute Auto 0.1 K/mm3 (0.0-0.1); Basophils Percent Auto 0.6 % (0.2-1.2); Eosinophils Percent Auto 0.4 % (0-4.4); Hematocrit 36.9 % (37.0-47.0); Hemoglobin 12.3 g/dL (12.0-15.0); Immature Granulocyte Absolute 0.02 K/mm3 (0.00-0.031); Immature Granulocyte Percent A 0.2 % (0-0.5); Lymphocytes Absolute Auto 1.58 K/mm3 (0.9-3.2); Lymphocytes Percent Auto 16.9 % (18.3-44.2); Mean Corpuscular HGB Conc 33.3 g/dl (32-36); Mean Platelet Volume 9.1 fl (7.4-10.4); Monocytes Absolute Auto 0.5 K/mm3 (0.1-0.6); Monocytes Percent Auto 5.3 % (2.6-8.5); Neutrophils Absolute Auto 7.1 K/mm3 (1.3-6.7); Neutrophils Percent Auto 76.6 % (45.5-73.1); Platelet Count Result 368 k/mm3 (150-375); White Blood Count 9.3 K/mm3 (4.5-10.0)
[2023-09-07 17:35] LABS: Alanine Aminotransferase 33 U/L (6-35); Albumin Level 5.1 g/dL (3.5-5.1); Alkaline Phosphatase 89 U/L (38-126); Anion Gap 10 mmol/L (8-16); Aspartate Amino Transferase 40 U/L (14-36); Bilirubin,Total 0.7 mg/dL (0.2-1.3); Blood Urea Nitrogen 3 mg/dL (7-17); Calcium 9.4 mg/dL (8.4-10.2); Carbon Dioxide 27 mmol/L (22-30); Chloride 95 mmol/L (98-107); Estimated Glomerular Filt Rate > 60; Glucose 116 mg/dL (65-110); Potassium 3.5 mmol/L (3.4-5.0); Sodium 132 mmol/L (137-145)
[2023-09-07 18:12] LABS: Iron 55 ug/dL (37-170)
[2023-09-07 18:22] LABS: Percent Iron Saturation 15 % (20-50)
[2023-09-07 18:42] LABS: Folic Acid > 20.0 ng/mL (2.76->20)
[2023-09-10 09:08] LABS: Methylmalonic Acid 314 nmol/L (87-318)
[2023-09-10 18:12] LABS: Soluble Transferrin Receptor 1.17 mg/L (0.76-1.76)
== END 2023-09-07 15:35 | disposition home or self-care (01) ==
LOC: ANHLAB 15:36
PROVIDERS: PCP Physician Assistant; Visit Provider Internal Medicine Hematology & Oncology
DX: D64.9 Anemia, unspecified (principal)
CPT/HCPCS: 36415; 80053; 82607; 82728; 82746; 83540; 83550; 83921; 84238; 85025

== ENCOUNTER 2023-12-09 13:06 | Observation (INO) | payer MEDICARE, SELFPAY ==
[2023-12-09] VITALS (18 sets, daily range): BP systolic 92–128; BP diastolic 45–72; PULSE 63–124; RESP 14–33; TEMP 36.4; O2SAT 97–100
--- NOTE | ~2023-12-09 | CT_ITS ---
Clinical Indication: Jaundice, pain CT Scan of the Chest, Abdomen, and Pelvis with Contrast: Technique: Contiguous sections were acquired throughout the chest, abdomen, and pelvis after intraven ous administration of 100 cc of Omnipaque 350. Dose reduction technique was used on this scan by barbara barriosing automated exposure control and iterative reconstruction technique. The dose-length product (DL P) was 217.59 mGy-cm. COMPARISON: 05/15/2023 Findings: There is no evidence of any significant mediastinal, hilar or axillary lymphadenopathy. The mediastin al soft tissues and vascular structures appear normal. There is no evidence of pleural or pericardial effusion. There is increased area of consolidation with central pseudocavitation at the posterior right lower l obe (axial image 68). There is mild haziness at the left lung base, also probably mildly progressed f rom prior exam (axial image 78). There is an ill-defined hypoenhancing mass involving the pancreatic head/neck and possibly extending to involve the gastric antrum. Precise borders are difficult to delineate, but the mass could measure up to approximately 4 cm in diameter. There is associated intrahepatic and extrahepatic biliary dila tation, with dilated common bile duct which abruptly tapers at the level of the aforementioned mass. Upstream, common bile duct is dilated to 1.6 cm. No hepatic parenchymal mass seen. Gallbladder is mar kedly distended without definite wall thickening or gallstone. There is upstream dilatation of the ma in pancreatic duct from the level of the pancreatic neck to the tail. The spleen, adrenals and kidneys are within normal limits. There are atherosclerotic calcifications o f the aorta. No lymphadenopathy. No bowel obstruction or bowel wall thickening. There is no evidence to suggest acute appendicitis. Urinary bladder is unremarkable. No adnexal mass evident. Trace pelvic ascites. Impression: Ill-defined hypodense mass probably arising from the pancreatic head, most consistent with pancreatic adenocarcinoma. Please see details above. Mass possibly extends to the gastric antrum directly, but no distant metastatic disease clearly identified. Associated double duct sign, with upstream intrahepatic and extra hepatic biliary dilatation, as well as dilatation of the main pancreatic duct from the pancreatic neck to the tail. Increasing areas of groundglass consolidation at the bilateral lung bases. Chronicity and mild progre ssion raises the possibility of low-grade neoplasm such as bronchial alveolar cell carcinoma versus a chronic pneumonitis. Reviewed, dictated and finalized at location M. ENGRAVER Impression: Ill-defined hypodense mass probably arising from the pancreatic head, most cons istent with pancreatic adenocarcinoma. Please see details above. Mass possibly extends to the gastric antrum directly, but no distant metastatic disease clear ly identified. Associated double duct sign, with upstream intrahepatic and extra hepatic bilia ry dilatation, as well as dilatation of the main pancreatic duct from the pancr eatic neck to the tail. Increasing areas of groundglass consolidation at the bilateral lung bases. Pivot Maker nicity and mild progression raises the possibility of low-grade neoplasm such a s bronchial alveolar cell carcinoma versus a chronic pneumonitis.
--- NOTE | ~2023-12-09 | XR_ITS ---
Portable chest x-ray Comparison: 12/01/2022 Clinical History: Weakness Findings: Lungs are clear, without focal consolidation or pleural effusion. Possible COPD. Cardiome diastinal silhouette is stable. Bones and soft tissues are unremarkable. Impression: Clear lungs. Possible COPD. Reviewed, dictated and finalized at [facility]. [employer] DIRECTOR Impression: Clear lungs. Possible COPD.
--- NOTE | 2023-12-09 13:18 | ECG_ITS ---
Measurements Intervals [place] Rate: 104 P: 50 HI: 133 QRS: -2 QRSD: 81 T: 34 QT: 344 QTc: 454 Interpretive Statements SINUS TACHYCARDIA FREQUENT ATRIAL PREMATURE COMPLEXES POSSIBLE LEFT ATRIAL ENLARGEMENT MINIMAL Q WAVES- LATERAL LEADS BORDERLINE ST-T WAVE ABNORMALITY- ANTEROLAT/INF LEADS BASELINE ARTIFACT- I, II, III, AVR, AVF ABNORMAL ECG COMPARED TO ECG 11/26/2022 19:34:30 SINUS TACHYCARDIA NOW PRESENT ATRIAL PREMATURE COMPLEXES NOW PRESENT ST (T WAVE) DEVIATION NOW PRESENT Electronically Signed On 12-09-2023 13:56:12 CLEARING HAND by Priyank Gordon D.O.
[2023-12-09 13:52] LABS: Hematocrit 33.1 % (37.0-47.0); Hemoglobin 10.8 g/dL (12.0-15.0); Mean Corpuscular HGB Conc 32.6 g/dl (32-36); Mean Corpuscular Hemoglobin 29.1 pg (26-34); Mean Corpuscular Volume 89.2 fl (80-100); Mean Platelet Volume 10.2 fl (7.4-10.4); Platelet Count Result 331 k/mm3 (150-375); Red Blood Count 3.71 M/mm3 (4.2-5.4); Red Cell Distribution Width 12.8 % (11.5-14.5); White Blood Count 24.9 K/mm3 (4.5-10.0)
[2023-12-09 14:00] LABS: Ammonia < 9 umol/L (9-30)
[2023-12-09 14:01] LABS: Lactic Acid Reflex 2.3 mmol/L (0.7-2.0)
[2023-12-09 14:03] LABS: INR 1.6; Prothrombin Time 19.5 Seconds (11.1-14.7)
[2023-12-09 14:05] LABS: Alanine Aminotransferase 320 U/L (6-35); Albumin Level 3.6 g/dL (3.5-5.1); Anion Gap 13 mmol/L (8-16); Aspartate Amino Transferase 412 U/L (14-36); Bilirubin,Total 6.1 mg/dL (0.2-1.3); Blood Urea Nitrogen 16 mg/dL (7-17); Calcium 8.8 mg/dL (8.4-10.2); Carbon Dioxide 26 mmol/L (22-30); Chloride 91 mmol/L (98-107); Estimated CRCL calculation 37 ml/min; Estimated Glomerular Filt Rate > 60; Glucose 138 mg/dL (65-110); Potassium 3.6 mmol/L (3.4-5.0); Sodium 130 mmol/L (137-145)
[2023-12-09 14:05] LABS: Partial Thromboplastin Time 32.5 SECONDS (22.3-36.8)
[2023-12-09 14:07] LABS: Estimated CRCL calculation 37 ml/min; Estimated Glomerular Filt Rate > 60
[2023-12-09 14:11] LABS: Alkaline Phosphatase 1673 U/L (38-126)
--- NOTE | 2023-12-09 14:11 | PC.NURSE ---
Pt to CT scan via stretcher at this time, spouse remains at bedside.
[2023-12-09 14:15] LABS: Appearance Urine Cloudy (Clear); Bacteria Urine None Seen /hpf; Bilirubin Urine 3+ (Negative); Blood Urine Trace (Negative); Color Urine Dark Yellow (Yellow); Glucose Urine UA Negative (Negative); Hyaline Casts Urine Present /lpf; Ketones Urine Negative (Negative); Leukocyte Esterase Ur 1+ LEU/UL (Negative); Nitrate Urine Positive (Negative); Protein Urine 2+ mg/dL (Negative); Specific Grav Ur 1.025 (1.001-1.035); Squamous Epithelial Cell Urine Few /hpf (Few); WBC Urine 0-5 /hpf; pH Urine 5.5 (5.0-9.0)
[2023-12-09 14:16] LABS: Add Urine Microscopic? YES
[2023-12-09 14:28] LABS: Band Neutrophils Percent 1 % (0-6); Lymphocytes Absolute Manual 1.49 K/mm3 (1.1-4.5); Monocytes Absolute Manual 0.74 K/mm3 (0.1-0.90); Monocytes Percent Manual 3 % (3-9); Neutrophils Absolute Manual 22.65 K/mm3 (1.7-7.2); Neutrophils Percent Manual 90 % (46-73); Total Cells Counted 100
[2023-12-09 14:29] LABS: Hypochromasia 1+ (NORMAL); Platelet Estimate Adequate (Adequate); Schistocytes None Seen (NORMAL)
[2023-12-09 14:30] LABS: Influenza A QL RT-PCR Negative (Negative); Influenza B QL RT-PCR Negative (Negative); RSV RNA, RT-PCR Negative (Negative); SARS-CoV-2 RNA PCR Negative (Negative)
[2023-12-09] MEDS: SODIUM CHLORIDE 0.9% IV 1,000 ML 999 ML IV CONT (14:59)
--- NOTE | 2023-12-09 15:08 | ED.GENADULT ---
HPI - General Adult General Chief complaint: Weakness Stated complaint: bodyaches, weak, decreased appetite Time Seen by Provider: 12/09/23 13:41 History of Present Illness HPI narrative: Patient is an 83-year-old female who presents to the emergency department this afternoon after family members finally convinced her to come in. Patient is extremely jaundiced and complaining of abdominal pain and back pain. Has been who is present at bedside states that her symptoms have been ongoing for the past few months. Patient has been losing weight gradually during this period of time, has had a decrease in her appetite and worsening abdominal pain radiating to her back. Patient denies any previous history of any liver disease. Family members have been trying to make some doctor appointments for her but the patient has been cancelling all of them and when they got frustrated and called her doctor, doctor told them that they cannot bring her against her will. Today, the combination of the jaundice the abdominal pain and back pain finally caused her to come in for further evaluation. She denies any additional symptoms include any chest pain, shortness of breath, dysuria, hematuria, constipation, diarrhea, melena, hematochezia, fevers or chills. Patient also denies any headaches, dizziness, lightheadedness, blurry visions, focal weakness, numbness and or tingling. There are no other modifying, alleviating, or precipitating factors at this time. Related Data Home Medications Medication Instructions Recorded Confirmed calcium carbonate 600 mg-vitamin 0.5 cap PO 05/07/23 09/21/23 D3 12.5 mcg (500 unit) capsule (Calcium 600 with Vitamin D3) ferrous sulfate 325 mg (65 mg 162.5 mg PO .every other day 05/07/23 09/21/23 iron) tablet Allergies Allergy/AdvReac Type Severity Reaction Status Date / Time No Known Allergies Allergy Verified 12/09/23 13:27 Review of Systems Review of Systems: All systems are reviewed and are negative unless stated otherwise in the HPI. [facility] Past Medical History Medical History Arthritis Carotid artery disease Closed L1 vertebral fracture EtOH dependence IBS (irritable bowel syndrome) Lung nodule Recurrent falls Sacral fracture, closed Thoracic ascending aortic aneurysm Diameter 4.5cm Echo done 11/2022 CT screening q6 months, last April 2023 Tobacco dependence Family History Family History Father Alzheimer disease Mother Alzheimer disease Sibling Diabetes mellitus Social History Social History Smoking packs per day: 2 Smoking cigarettes per day: 40.0 Years smoked: 30 Smoking pack-years: 60.00 Smoking status: Former smoker Smoking end date: 11/28/22 Alcohol intake: former Substance use: never Substance use type: does not use Lack of Transportation: No Lack of Food: Never True Current Housing: I Have Housing Concerned About Future Housing: No Difficulty Paying Gas/Electric Bills: No Difficulty Paying for Meds: No Currently Unemployed: No Education: High School Diploma/GED Difficulty w/ Childcare or Family Care: No Living arrangements: with family Spiritual care concerns: No Exam Narrative: General: Alert, awake, afebrile, in no acute distress, severe jaundice, cachectic. HEENT: PERRL, no rhinorrhea, no post nasal drip, oropharynx clear. Neck: Trachea midline, no JVD, no lymphadenopathy. Cardiovascular: Regular rate and rhythm, no murmurs, rubs or gallops, no peripheral edema. Respiratory: Clear to auscultation bilaterally, no tachypnea, no wheezing, no rhonchi, no rubs, no respiratory distress. Abdomen: Soft, mild tenderness in the left upper quadrant, nondistended, no rebound, no guarding, no peritoneal signs. Musculoskeletal: No joint swelling or deformity, normal muscl
[2023-12-09 16:48] LABS: Reflex Lactic Acid Yes or No Add Lactic
[2023-12-09] MEDS: SODIUM CHLORIDE 0.9% IV 1,000 ML 100 ML IV CONT (17:26)
[2023-12-10] VITALS (35 sets, daily range): BP systolic 108–140; BP diastolic 51–88; PULSE 67–91; RESP 15–29; TEMP 36.6; O2SAT 95–100
--- NOTE | 2023-12-10 07:09 | PC.NURSE ---
Report given to [facility] Matta at this time.
--- NOTE | 2023-12-10 08:05 | PC.NURSE ---
spoke with [facility] Transfer, patient still on high priority wait list.
--- NOTE | 2023-12-10 09:51 | PC.NURSE ---
[facility] transfer center called, [facility] is still [facility].
--- NOTE | 2023-12-10 17:37 | PC.NURSE ---
Meal tray arrived for patient. Patient sitting in bed eating at this time
--- NOTE | 2023-12-10 18:33 | PC.NURSE ---
Called [facility] transfer center for status update-Still no bed.
--- NOTE | 2023-12-10 20:09 | PC.NURSE ---
Patient given a toothbrush and toothpaste per request. Patient advised to call for RN when she is ready to get up and get washed up so we can assist her.
[2023-12-10] MEDS: diphenhydrAMINE HCl INJ 50 MG/ML VIAL 25 MG IV PUSH (23:43)
[2023-12-11 04:05] VITALS: BP 120/79; PULSE 79; RESP 14; TEMP 36.7; O2SAT 97
[2023-12-11 07:15] VITALS: BP 128/61; PULSE 64; RESP 16; TEMP 36.9; O2SAT 97
[2023-12-11 08:42] VITALS: RESP 16
--- NOTE | 2023-12-11 08:53 | PC.NURSE ---
[facility] transfer line called, pt still waiting on bed. Updated set of VS and pt condition reviewed with staff.
[2023-12-11 11:03] VITALS: BP 127/79; PULSE 86; RESP 16; O2SAT 98
--- NOTE | 2023-12-11 13:37 | PC.NURSE ---
Pt gave this RN med list for patient to update chart.
[2023-12-11 14:55] VITALS: O2SAT 98
--- NOTE | 2023-12-11 14:55 | ADMGEN ---
This patient, Sulema Stovall, was admitted to [facility] Surg Room 307-02. Patient/family oriented to hospital policies and general routines including ID bracelet, bed and alarms, visiting hours, pain management, procedures, bathroom and other care routines, personal items, smoking policy, room service/diet, and visiting hours. Information on how to activate the Rapid Response Team has been discussed. Patient/Family are encouraged to report perceived risks to care and to ask questions if they do not understand what they are told or what they should do.
--- NOTE | 2023-12-11 15:52 | PM.IMHP ---
H&P: HPI History of Present Illness Date/Time: 12/11/23 15:52 Chief Complaint: Abdominal Pain, Nausea, Decreased Appetite Narrative: 83-year-old female presents here with diffuse abdominal pain, nausea, decreased appetite, and lower back pain with past medical history of CAD, alcoholism (cessation in Nov), IBS, stable thoracic ascending aortic aneurysm, former smoker (cessation in Nov). Patient poor historian and requested her spouse speak on her behalf, who is at the bedside provided majority of the history. Per , patient has had nondescript symptoms since November of 2022. However in the last 2-3 weeks patient has began experiencing worsening abdominal pain, abdominal distension, he decreased appetite, weight loss (unknown amount), and intermittent constipation. Now has developed jaundice. Has history of heavy ETOH use, 4-5 years per day and stopped drinking in November of 2022 after she sustained 3 falls secondary to drinking. Patient has also been experiencing dark/black stools for the past few months. Patient had colonoscopy recommended to her, which she declined. In the last 24 hours patient has also developed difficulty urinating and has been constipated. Last bowel movement was 2 days ago and she reports that was hard, small, and black. Workup in the ED was started on 12/09 and revealed an elevated white count at 24.9, stable anemia with a hemoglobin of 10.8, elevated neutrophils, no moderate hyponatremia with sodium of 130, creatinine of 0.6, lactic of 2.3, total bilirubin of 6.1, AST of 412, ALT of 329, alk-phos of 1673, and ammonia less than and UTI consistent with urinary tract infection. Viral PCR negative. CT of the chest/abdomen/pelvis showed an ill-defined hypodense mass probably arising from the pancreatic head, most consistent with pancreatic adenocarcinoma.?Associated double duct sign, with upstream intrahepatic and extra hepatic biliary dilatation, as well as dilatation of the main pancreatic duct from the pancreatic neck to the tail. Increasing areas of groundglass consolidation at the bilateral lung bases, chronic with mild progression (low grade neoplasm n chronic pneumonitis). [facility]-up of the CT findings, currently awaiting bed which has been delayed due to capacity. Review of Systems Review of Systems: All systems reviewed & are unremarkable except as noted in HPI and below PMFSH Past Medical History Medical History Arthritis Carotid artery disease Closed L1 vertebral fracture EtOH dependence cessation in Nov 4-5 beers daily IBS (irritable bowel syndrome) Lung nodule Recurrent falls Sacral fracture, closed Thoracic ascending aortic aneurysm Diameter 4.5cm Echo done 11/2022 CT screening q6 months, last April 2023 Tobacco dependence 2 PPD x60 yrs cessation in Nov Surgical History Surgical History No history of previous surgery Family History Family History Father Alzheimer disease Mother Alzheimer disease Sibling Diabetes mellitus Social History Social History Smoking packs per day: 2 Smoking cigarettes per day: 40.0 Years smoked: 30 Smoking pack-years: 60.00 Smoking status: Former smoker Smoking end date: 11/28/22 Alcohol intake: former Substance use: never Substance use type: does not use Lack of Transportation: No Lack of Food: Never True Current Housing: I Have Housing Concerned About Future Housing: No Difficulty Paying Gas/Electric Bills: No Difficulty Paying for Meds: No Currently Unemployed: No Education: High School Diploma/GED Difficulty w/ Childcare or Family Care: No Living arrangements: with family Spiritual care concerns: No
[2023-12-11 17:09] LABS: Basophils Percent Auto 0.2 % (0.2-1.2); Eosinophils Absolute Auto 0.1 K/mm3 (0-0.3); Eosinophils Percent Auto 0.7 % (0-4.4); Hematocrit 30.1 % (37.0-47.0); Hemoglobin 9.8 g/dL (12.0-15.0); Immature Granulocyte Absolute 0.17 K/mm3 (0.00-0.031); Immature Granulocyte Percent A 0.9 % (0-0.5); Lymphocytes Absolute Auto 1.33 K/mm3 (0.9-3.2); Lymphocytes Percent Auto 7.3 % (18.3-44.2); Mean Corpuscular HGB Conc 32.6 g/dl (32-36); Mean Corpuscular Volume 89.1 fl (80-100); Mean Platelet Volume 9.7 fl (7.4-10.4); Monocytes Percent Auto 5.4 % (2.6-8.5); Neutrophils Absolute Auto 15.6 K/mm3 (1.3-6.7); Neutrophils Percent Auto 85.5 % (45.5-73.1); Platelet Count Result 328 k/mm3 (150-375); Red Blood Count 3.38 M/mm3 (4.2-5.4); Red Cell Distribution Width 12.8 % (11.5-14.5); White Blood Count 18.2 K/mm3 (4.5-10.0)
[2023-12-11 17:29] LABS: Alanine Aminotransferase 313 U/L (6-35); Albumin Level 3.1 g/dL (3.5-5.1); Anion Gap 7 mmol/L (8-16); Aspartate Amino Transferase 425 U/L (14-36); Bilirubin,Total 7.6 mg/dL (0.2-1.3); Blood Urea Nitrogen 10 mg/dL (7-17); Calcium 8.3 mg/dL (8.4-10.2); Carbon Dioxide 30 mmol/L (22-30); Chloride 95 mmol/L (98-107); Estimated Glomerular Filt Rate > 60; Glucose 113 mg/dL (65-110); Potassium 3.9 mmol/L (3.4-5.0); Sodium 132 mmol/L (137-145)
[2023-12-11] MEDS: LACTATED RINGERS 1,000 ML 100 ML IV CONT (17:47)
[2023-12-11 19:19] LABS: Alkaline Phosphatase 2056 U/L (38-126)
[2023-12-11 20:00] VITALS: BP 132/67; PULSE 104; RESP 18; TEMP 36.4; O2SAT 98
--- NOTE | 2023-12-11 22:42 | PC.NURSE ---
Pt left by EMS at 2005 this evening to go to [facility]. Report had been called to [facility] Quintanilla and pt is to go to room 730. All pt belongings transported with pt, and family present to notify other family members of pt's discharge from this facility.
--- NOTE | 2023-12-13 16:46 | PM.TDS ---
Transfer Discharge Sum: Prov Provider Date of admission: 12/11/23 13:14 Primary care physician: Sho Delatorre MD Admitting clinician: German Arreola MD Attending physician on admission: German Arreola Consults: 12/09/23 Consult to GI Reason for consult: Abnormal CT finding CT showed ill-defined hypodense mass arising from the pancreatic head, most consistent with pancreatic adenocarcinoma. Case was discussed with the on-call GI physician, Dr. Delgado at 1445 on 12/09 by ED provider, Isha PENNINGTON. GI provider recommended transfer as patient will need a biopsy which we cannot perform here.? At this time, transfer center was contacted and transfer to a facility capable of performing an endoscopic biopsy is currently pending. 12/11/23 Consult to Dietitian Routine Reason for Consult:: Patient cachectic, reduced appetite times 2-3 weeks, needs increased caloric intake Attending physician on discharge: German Arreola Discharging clinician: Susan Serrano Anticipated date of transfer: 12/11/23 Receiving physician/facility: [place], [place] DS: Admitting Diagnosis Discharge Date 12/11/23 Admitting Diagnosis Pancreatic Cancer, Sepsis, Acute UTI DS: Discharge Diagnosis Discharge Diagnosis Plan Admitting/Discharge Dx: Pancreatic Cancer, Sepsis, Acute UTI C/F: endocrine pancreatic carcinoma, Sepsis, Abnormal transaminases, Hyperbilirubinemia, Cachexia, Pneumonitis, Acute UTI, lactic acidosis CT of the chest/abdomen/pelvis showed an ill-defined hypodense mass probably arising from the pancreatic head, most consistent with pancreatic adenocarcinoma.?Associated double duct sign, with upstream intrahepatic and extra hepatic biliary dilatation, as well as dilatation of the main pancreatic duct from the pancreatic neck to the tail. Increasing areas of groundglass consolidation at the bilateral lung bases, chronic with mild progression (low grade neoplasm n chronic pneumonitis). Patient has been accepted at [facility] for further work-up of the CT findings, currently awaiting bed which has been delayed due to capacity. Transfer Discharge Sum: Med Medications Active and Home Medications: Home Medications aspirin 81 mg chewable tablet (Children's Aspirin) 81 mg PO DAILY@0800 1 month #30 tabs 12/03/22 [Rx Confirmed 12/11/23] docusate sodium 100 mg capsule 100 mg PO DAILY #30 caps 01/14/23 [Rx Confirmed 12/11/23] calcium carbonate 600 mg-vitamin D3 12.5 mcg (500 unit) capsule (Calcium 600 with Vitamin D3) 0.5 cap PO DAILY 05/07/23 [History Confirmed 12/11/23] ferrous sulfate 325 mg (65 mg iron) tablet 162.5 mg PO .every other day 05/07/23 [History Confirmed 09/21/23] atorvastatin 10 mg tablet 10 mg PO DAILY #100 tabs 09/04/23 [Rx Confirmed 12/11/23] donepezil 5 mg tablet (Aricept) 5 mg PO QHS #90 tabs 10/13/23 [Rx Confirmed 10/13/23] folic acid 1 mg tablet 1 mg PO DAILY 12/11/23 [History Confirmed 12/11/23] Transfer Discharge Sum: Hosp Hospital Course Hospital course: 83-year-old female presents here with diffuse abdominal pain, nausea, decreased appetite, and lower back pain with past medical history of CAD, alcoholism (cessation in Nov), IBS, stable thoracic ascending aortic aneurysm, former smoker (cessation in Nov). Patient poor historian and requested her spouse speak on her behalf, who is at the bedside provided majority of the history.? Per , patient has had nondescript symptoms since November of 2022.? However in the last 2-3 weeks patient has began experiencing worsening abdominal pain, abdominal distension, he decreased appetite, weight loss (unknown amount), and intermittent constipation.? Now has developed jaundice.? Has history of heavy ETOH use, 4-5 years per day and stopped drinking in November of 2022 after she sustained 3 falls secondary to drinking.? Patient has also been experiencing dark/black stools for the past few months.? Patient had colonoscopy recommended to h
== END 2023-12-11 20:25 | disposition short-term general hospital (02) ==
LOC: ANHED 12-11 07:20 → ANH3MEDSUR 12-11 15:13
PROVIDERS: Emergency Medicine; Student in an Organized Health Care Education/Training Program; Admitting Provider Internal Medicine; Emergency Provider Emergency Medicine; PCP Family Medicine; Visit Provider Internal Medicine
DX: A41.9 Sepsis, unspecified organism (principal); C25.9 Malignant neoplasm of pancreas, unspecified; N39.0 Urinary tract infection, site not specified; R74.01 Elevation of levels of liver transaminase levels; E87.20 Acidosis, unspecified; E80.6 Other disorders of bilirubin metabolism; R64 Cachexia; K92.1 Melena; K58.9 Irritable bowel syndrome, unspecified; I71.21 Aneurysm of the ascending aorta, without rupture; R00.0 Tachycardia, unspecified; R94.31 Abnormal electrocardiogram [ECG] [EKG]; J98.4 Other disorders of lung; I25.10 Atherosclerotic heart disease of native coronary artery without angina pectoris; Z68.1 Body mass index [BMI] 19.9 or less, adult; F17.210 Nicotine dependence, cigarettes, uncomplicated; Z20.822 Contact with and (suspected) exposure to COVID-19; F10.21 Alcohol dependence, in remission; Z79.891 Long term (current) use of opiate analgesic; Z79.82 Long term (current) use of aspirin
CPT/HCPCS: 36415; 71045; 71260; 74177; 80053; 81001; 82140; 83605; 85025; 85610; 85730; 86850; 86900; 86901; 87040; 87637; 93005; 99285; G0378; J0696; J1200; J7030; J7120; Q9967

== ENCOUNTER 2024-08-16 12:26 | Inpatient (IN) | payer MEDICARE, SELFPAY ==
[2024-08-16] VITALS (13 sets, daily range): BP systolic 135–155; BP diastolic 67–86; PULSE 81–90; RESP 15–22; TEMP 36.5–36.9; O2SAT 96–99
--- NOTE | ~2024-08-16 | CT_ITS ---
EXAMINATION: CTA brain carotid DATE: 08/16/2024 14:35 INDICATION: Stroke. TECHNIQUE: Computed tomographic angiography (CTA) of the head was performed with 100 mL Omnipaque-350 intravenous contrast. CTA of the neck was performed with intravenous contrast. Automated exposure co ntrol and iterative reconstruction technique were employed. The dose-length product was 739.98 mGy-cm . Maximum intensity projection and volume rendered 3D-reconstructions were created by the [employer] t on a separate workstation. COMPARISON: Head CT 08/16/2024 FINDINGS: HEAD CTA: There are scattered areas of low attenuation in the cerebral white matter. There is no intr acranial hemorrhage, acute infarction, or abnormal intracranial mass lesion. The ventricles are torrie l in size. There is a right mastoid effusion. There is mild mucosal thickening in the paranasal sinus es. The orbits are normal. The vertebral arteries are codominant. There is no significant stenosis of basilar artery or the posterior cerebral arteries. There is no significant stenosis of the intracran ial internal carotid arteries or anterior or middle cerebral arteries. Anterior communicating artery is normal. There is no aneurysm. The posterior communicating arteries are normal. NECK CTA: There is mild emphysema. There is mild scarring at the lung apices. There are nodules in th e thyroid measuring up to 8 mm, likely not clinically significant. There is no significant stenosis o f the vertebral arteries. There is plaque in the proximal internal carotid arteries. There is 18% tiana nosis of the proximal right internal carotid artery relative to normal distal artery lumen diameter ( NASCET criteria). There is 0% stenosis of the proximal left internal carotid artery relative to torrie l distal artery lumen diameter. There is severe cervical spondylosis. There is extensive dental disea se. IMPRESSION: 1. Moderate nonspecific cerebral white matter disease, which likely represents chronic small vessel i schemic disease. 2. No aneurysm or significant intracranial arterial stenosis. 3. 18% stenosis of the proximal right internal carotid artery relative to normal distal artery lumen diameter (NASCET criteria). 4. 0% stenosis of the proximal left internal carotid artery relative to normal distal artery lumen di ameter. Reviewed, dictated and finalized at location A. IMPRESSION: 1. Moderate nonspecific cerebral white matter disease, which likely represents chronic small vessel ischemic disease. 2. No aneurysm or significant intracranial arterial stenosis. 3. 18% stenosis of the proximal right internal carotid artery relative to torrie l distal artery lumen diameter (NASCET criteria). 4. 0% stenosis of the proximal left internal carotid artery relative to normal distal artery lumen diameter.
--- NOTE | ~2024-08-16 | CT_ITS ---
EXAMINATION: CT brain wo con DATE: 08/16/2024 13:16 INDICATION: Left hemiparesis. TECHNIQUE: Computed tomography (CT) of the head was performed without intravenous contrast. The mA wa s adjusted according to patient size. Iterative reconstruction technique was employed. The dose-lengt h product was 605.33 mGy-cm. COMPARISON: Head CT 12/03/2022 FINDINGS: There are scattered areas of low attenuation in the cerebral white matter. There is no intr acranial hemorrhage, acute infarction, or abnormal intracranial mass lesion. The ventricles are torrie l in size. The orbits are normal. There is mild mucosal thickening in the paranasal sinuses. There is a right mastoid effusion. There is focal thickening of the outer table of the skull on the left post eriorly, consistent with an osteoma. IMPRESSION: 1. Stable moderate nonspecific cerebral white matter disease, which likely represents chronic small v essel ischemic disease. Reviewed, dictated and finalized at location A. IMPRESSION: 1. Stable moderate nonspecific cerebral white matter disease, which likely repr esents chronic small vessel ischemic disease.
--- NOTE | ~2024-08-16 | XR_ITS ---
XR chest 1V Ordering provider: Reed Velasco MD History: 84 years Female with . left side weakness . Comparison: December 09, 2023 FINDINGS: MEDIASTINUM: The cardiac silhouette is slightly enlarged. LUNGS: No infiltrates, effusions or pneumothorax. Emphysematous changes of the lungs. Prominent markings in the lower lobes. Apical pleural thickening. OTHER: No free air under the diaphragm. Degenerative spine. IMPRESSION: No acute cardiopulmonary pathology. Reviewed, dictated and finalized at location A.
--- NOTE | ~2024-08-16 | CT_ITS ---
EXAMINATION: CT brain wo con DATE: 08/18/2024 07:52 INDICATION: New onset disorientation TECHNIQUE: Computed tomography (CT) of the head was performed without intravenous contrast. Sagittal and coronal reconstructions were performed. The mA was adjusted according to patient size. Iterative reconstruction technique was employed. The dose-length product was 908.00 mGy-cm. COMPARISON: head CT 08/16/2024 and brain MR dated 08/17/2024 FINDINGS: The acute infarct seen at the body of the right caudate nucleus on prior MRI is discernible as a very subtle region of decreased attenuation on the current CT. No new acute infarcts identified. There is a vertical linear increased density extending along a sulcus in the right parietal region suspicious for thrombosed vessel. No acute intracranial hemorrhage or abnormal extra axial fluid collection. Th ere is moderate scattered white matter hypoattenuation consistent with chronic small vessel ischemic disease. Ventricles are normal and symmetric. No mass/mass effect. The orbits and paranasal sinuses a re normal. Moderate sized right mastoid effusion. IMPRESSION: 1. Small region of subtle decreased density at the body of the right caudate nucleus corresponding to the acute infarct better appreciated on prior MRI. 2. Linear increased density along a sulcus in the right parietal lobe suspicious for a small thrombos ed vessel. 3. Moderate scattered white matter hypoattenuation consistent with chronic small vessel ischemic dise ase. Reviewed, dictated and finalized at location A. IMPRESSION: 1. Small region of subtle decreased density at the body of the right caudate nu cleus corresponding to the acute infarct better appreciated on prior MRI. 2. Linear increased density along a sulcus in the right parietal lobe suspiciou s for a small thrombosed vessel. 3. Moderate scattered white matter hypoattenuation consistent with chronic smal l vessel ischemic disease.
--- NOTE | ~2024-08-16 | MR_ITS ---
EXAMINATION: MR brain/brain stem wo/w con DATE: 08/17/2024 14:37 INDICATION: Strokelike symptoms TECHNIQUE: Magnetic resonance imaging (MRI) of the brain and brainstem was performed without and with 10 mL Multihance intravenous contrast. Sequences included sagittal and axial T1-weighted SE, axial d iffusion-weighted FS SE, axial 3D SWAN, axial T2-weighted FLAIR, and axial T2-weighted FSE. Postcontr ast axial and coronal T1-weighted SE was obtained. Apparent diffusion coefficient (ADC) maps were cre ated. COMPARISON: Head CT and CT angiogram dated. FINDINGS: Region of restricted diffusion at the body of the right caudate nucleus consistent with acute infarct . Small region of encephalomalacia consistent with chronic infarct in the left cerebellar hemisphere. There are multiple foci of susceptibility artifact in the cerebral and cerebellar hemispheres consis tent with sequela of microhemorrhage which could be related to either hypertension or amyloid angiopa thy. There is additional curvilinear signal loss along the surface of the gyri in the right parietal lobe which could represent of old blood products related to a prior subarachnoid hemorrhage. No intra cranial mass lesion. There are scattered areas of nonspecific increased T2-weighted signal intensity in the cerebral white matter, predominantly involving the deep and periventricular white matter. Symm etric prominence of the sulci and ventricles consistent with moderate age-appropriate diffuse cerebra l volume loss. There are no abnormal extra-axial fluid collections. Flow voids are seen in the cerebr al arteries on the T2-weighted sequences consistent with their expected patency. Again seen is a righ t mastoid effusion. Visualized orbits and soft tissues are unremarkable. 4 thickening of the outer ta ble of the skull at the left temporal occipital region consistent with an osteoma. There are no areas of abnormal enhancement on the post contrast images. IMPRESSION: 1. Small acute infarct in the body of the right caudate nucleus. 2. Small old left cerebellar infarct and moderate scattered periventricular predominant white matter T2 hyperintensity consistent with chronic small vessel ischemic disease. 3. Multiple scattered foci of susceptibility artifact in the cerebral and cerebellar hemispheres cons istent with sequela of chronic microhemorrhage which could be due to hypertension or amyloid angiopat hy. 4. More curvilinear susceptibility artifact along gyri in the right parietal region which could repre sent additional chronic blood products with configuration suggesting sequela of old subarachnoid hemo rrhage. Reviewed, dictated and finalized at location A. IMPRESSION: 1. Small acute infarct in the body of the right caudate nucleus. 2. Small old left cerebellar infarct and moderate scattered periventricular pre dominant white matter T2 hyperintensity consistent with chronic small vessel is chemic disease. 3. Multiple scattered foci of susceptibility artifact in the cerebral and cereb ellar hemispheres consistent with sequela of chronic microhemorrhage which coul d be due to hypertension or amyloid angiopathy. 4. More curvilinear susceptibility artifact along gyri in the right parietal re gion which could represent additional chronic blood products with configuration suggesting sequela of old subarachnoid hemorrhage.
--- NOTE | 2024-08-16 12:35 | ECG_ITS ---
Test Date: 2024-08-16 12:57:08 Measurements Intervals [place] Rate: 83 P: 61 UT: 128 QRS: -14 QRSD: 71 T: 21 QT: 377 QTc: 444 Interpretive Statements SINUS RHYTHM POSSIBLE LEFT ATRIAL ENLARGEMENT MINIMAL Q WAVES- ANTEROLAT/HIGH LAT LEADS BASELINE ARTIFACT- I, II, AVR, AVL, AVF, V1 BORDERLINE ECG No previous ECG available for comparison Electronically Signed On 08-16-2024 13:02:53 CDT by Priyank Gordon D.O.
[2024-08-16 13:03] LABS: Glucose Point of Care 97 mg/dl (65-105)
[2024-08-16 13:14] LABS: Basophils Absolute Auto 0.1 K/mm3 (0.0-0.1); Basophils Percent Auto 1.1 % (0.2-1.2); Eosinophils Absolute Auto 0.1 K/mm3 (0-0.3); Eosinophils Percent Auto 1.7 % (0-4.4); Hematocrit 31.7 % (37.0-47.0); Hemoglobin 10.4 g/dL (12.0-15.0); Immature Granulocyte Absolute 0.03 K/mm3 (0.00-0.031); Immature Granulocyte Percent A 0.4 % (0-0.5); Lymphocytes Absolute Auto 1.29 K/mm3 (0.9-3.2); Lymphocytes Percent Auto 17.8 % (18.3-44.2); Mean Corpuscular HGB Conc 32.8 g/dl (32-36); Mean Corpuscular Hemoglobin 29.5 pg (26-34); Mean Corpuscular Volume 90.1 fl (80-100); Mean Platelet Volume 9.3 fl (7.4-10.4); Monocytes Absolute Auto 0.8 K/mm3 (0.1-0.6); Monocytes Percent Auto 10.7 % (2.6-8.5); Neutrophils Absolute Auto 4.9 K/mm3 (1.3-6.7); Neutrophils Percent Auto 68.3 % (45.5-73.1); Platelet Count Result 365 k/mm3 (150-375); Red Blood Count 3.52 M/mm3 (4.2-5.4); Red Cell Distribution Width 15.8 % (11.5-14.5); White Blood Count 7.2 K/mm3 (4.5-10.0)
[2024-08-16 13:26] LABS: Partial Thromboplastin Time 29.9 Seconds (22.3-36.8)
[2024-08-16 13:29] LABS: Alanine Aminotransferase 70 U/L (6-35); Albumin Level 3.8 g/dL (3.5-5.1); Alkaline Phosphatase 84 U/L (38-126); Anion Gap 11 mmol/L (4-12); Aspartate Amino Transferase 54 U/L (14-36); Bilirubin,Total 0.4 mg/dL (0.2-1.3); Blood Urea Nitrogen 10 mg/dL (7-17); Calcium 8.7 mg/dL (8.4-10.2); Carbon Dioxide 24 mmol/L (22-30); Chloride 89 mmol/L (98-107); Estimated Glomerular Filt Rate > 60; Glucose 92 mg/dL (65-110); Potassium 3.7 mmol/L (3.4-5.0); Sodium 124 mmol/L (137-145)
[2024-08-16 13:41] LABS: Troponin I < 0.012 ng/mL (0.000-0.034)
--- NOTE | 2024-08-16 15:04 | ED.NEUROSD ---
HPI - Neuro Symptoms/Deficit General Chief Complaint: Suspected CVA Stated Complaint: neuro symptoms Time Seen by Provider: 08/16/24 13:40 History of Present Illness HPI Narrative: This is an 84-year-old female presenting with stroke-like symptoms. Last known normal 3:30 a.m.. Her woke up from sleep and she was very fairly weak and had to be helped to bed. When she awoke she had left-sided weakness that has gotten progressively worse throughout the day. She has left facial droop, flaccid paralysis of the left arm and weakness in the left leg. She denies difficulty swallowing were seen or speaking. Patient is DNR DNI pain Related Data Home Medications Medication Instructions Recorded Confirmed calcium carbonate 600 mg-vitamin 0.5 cap PO DAILY 05/07/23 12/11/23 D3 12.5 mcg (500 unit) capsule (Calcium 600 with Vitamin D3) ferrous sulfate 325 mg (65 mg 162.5 mg PO .every other day 05/07/23 09/21/23 iron) tablet folic acid 1 mg tablet 1 mg PO DAILY 12/11/23 12/11/23 Allergies Allergy/AdvReac Type Severity Reaction Status Date / Time No Known Allergies Allergy Verified 05/23/24 13:37 [facility] Past Medical History Medical History Arthritis Carotid artery disease Closed L1 vertebral fracture EtOH dependence cessation in Nov 4-5 beers daily IBS (irritable bowel syndrome) Lung nodule Pancreatic cancer [facility] Recurrent falls Sacral fracture, closed Thoracic ascending aortic aneurysm Diameter 4.5cm Echo done 11/2022 CT screening q6 months, last April 2023 Tobacco dependence 2 PPD x60 yrs cessation in Nov Surgical History Surgical History No history of previous surgery Family History Family History Father Alzheimer disease Mother Alzheimer disease Sibling Diabetes mellitus Social History Social History Smoking packs per day: 1 Smoking cigarettes per day: 20.0 Years smoked: 60 Smoking pack-years: 60.00 Smoking status: Former smoker Tobacco type: cigarettes Smoking end date: 11/28/22 Alcohol intake: former Substance use: never Substance use type: does not use Do You Feel Safe in your Home?: Yes Lack of Transportation: No Lack of Food: Never True Current Housing: I Have Housing Concerned About Future Housing: No Difficulty Paying Gas/Electric Bills: No Difficulty Paying for Meds: No Currently Unemployed: No Education: Decline to Answer Difficulty w/ Childcare or Family Care: No Living arrangements: with family Spiritual care concerns: No Exam Narrative: APPEARANCE: No apparent distress. Head: atraumatic. EYES: EOMI, NOSE: Atraumatic NECK: Trachea midline RESPIRATORY: No increased rate of breathing CARDIOVASCULAR: RRR, ABDOMINAL: Non-distended MUSCULOSKELETAl: No obvious deformities NEURO: Alert. Moving 4/4 extremities SKIN:: Warm, dry. Normal color PSYCHIATRIC: Normal affect NIH Stroke Scale/Score (NIHSS) from [employer] on 08/16/2024 All calculations should be rechecked by clinician prior to use RESULT SUMMARY: 8 points NIH Stroke Scale INPUTS: 1A: Level of consciousness ?> 0 = Alert; keenly responsive 1B: Ask month and age ?> 0 = Both questions right 1C: 'Blink eyes' & 'squeeze hands' ?> 0 = Performs both tasks 2: Horizontal extraocular movements ?> 0 = Normal 3: Visual hanley ?> 0 = No visual loss 4: Facial palsy ?> 3 = Unilateral complete paralysis (upper/lower face) 5A: Left arm motor drift ?> 3 = No effort against gravity 5B: Right arm motor drift ?> 0 = No drift for 10 seconds 6A: Left leg motor drift ?> 2 = Some effort against gravity 6B: Right leg motor drift ?> 0 = No drift for 5 seconds 7: Limb Ataxia ?> 0 = Paralyzed 8: Sensation ?> 0 = Normal; no sensory loss 9: Language/
[2024-08-16] MEDS: SODIUM CHLORIDE 0.9% IV 1,000 ML 999 ML IV CONT (15:20)
--- NOTE | 2024-08-16 15:36 | PM.IMHP ---
H&P: HPI History of Present Illness Date/Time: 08/16/24 15:35 Chief Complaint: Left side weakness. Narrative: This is an 84-year-old female with history of coronary artery disease, thoracic ascending aortic aneurysm, tobacco use (quit in 2022), chronic hyponatremia, anemia, and pancreatic adenocarcinoma on palliative systemic chemotherapy who presented to the emergency department via private vehicle for evaluation of left-sided weakness.?The patient provides the following history. She got up to go to the bathroom at around 03:30 and she had to call her for help as she was too weak to get there on her own. her entire left side was weak. She went back to bed and when she got up this morning she was barely able to use her left arm and the left leg was still weak. She denies vertigo, vision changes, difficulties speaking and swallowing, and paresthesias. She also denies chest pain, pleuritic pain, palpitations, and sensations of racing heart. Her appetite has been okay and she denies nausea, vomiting, and diarrhea. She has not had any falls or injury. In the ED: Vital signs have been stable since arrival. Labs were significant for a hemoglobin of 10.4, sodium 124, chloride 89, creatinine 0.40, AST 54, ALT 70. Head CT showed stable moderate nonspecific cerebral white matter disease. CTA of the head and neck showed no aneurysm or significant intracranial arterial stenosis and 80% stenosis of the proximal right internal carotid artery. Chest x-ray showed no acute cardiopulmonary disease. EKG interpreted per local company tanker driver showed sinus rhythm with possible left atrial enlargement minimal Q-waves in the anterolateral/high lateral leads. Review of Systems Review of Systems: 12 systems were reviewed and are negative except for as per HPI. [facility] Past Medical History Medical History Anemia Arthritis Carotid artery disease Chronic hyponatremia Closed L1 vertebral fracture Irritable bowel syndrome Lung nodule Pancreatic cancer Treated at [facility], on palliative chemotherapy. Recurrent falls Sacral fracture, closed Thoracic ascending aortic aneurysm Diameter 4.5cm Echo done 11/2022 CT screening q6 months, last April 2023 Tobacco dependence 2 PPD x60 yrs cessation in Nov Surgical History Surgical History No history of previous surgery Family History Family History Father Alzheimer disease Mother Alzheimer disease Sibling Diabetes mellitus Social History Social History Social History: Surrogate medical decision maker: Drew Stovall, spouse. Code status: Do not resuscitate. Smoking packs per day: 1 Smoking cigarettes per day: 20.0 Years smoked: 60 Smoking pack-years: 60.00 Smoking status: Former smoker Tobacco type: cigarettes Smoking end date: 11/28/22 Alcohol intake: former Substance use: never Substance use type: does not use Do You Feel Safe in your Home?: Yes Lack of Transportation: No Lack of Food: Never True Current Housing: I Have Housing Concerned About Future Housing: No Difficulty Paying Gas/Electric Bills: No Difficulty Paying for Meds: No Currently Unemployed: No Education: Decline to Answer Difficulty w/ Childcare or Family Care: No Living arrangements: with family Spiritual care concerns: No Meds Home Medications and Allergies Home Medications Medication Instructions Recorded Confirmed Type aspirin 81 mg chewable tablet 81 mg PO DAILY@0800 1 month #30 12/03/22 08/16/24 Rx (Children's Aspirin) tabs calcium carbonate 600 mg-vitamin 0.5 cap PO DAILY 05/07/23 08/16/24 History D3 12.5 mcg (500 unit) capsule (Calcium 600 with Vitamin D3) folic acid 1 mg tablet 1 mg PO DAILY 11/23
--- NOTE | 2024-08-16 16:26 | ADMGEN ---
This patient, Sulema Stovall, was admitted to Medical Room 260-01. Patient/family oriented to hospital policies and general routines including ID bracelet, bed and alarms, visiting hours, pain management, procedures, bathroom and other care routines, personal items, smoking policy, room service/diet, and visiting hours. Information on how to activate the Rapid Response Team has been discussed. Patient/Family are encouraged to report perceived risks to care and to ask questions if they do not understand what they are told or what they should do.
[2024-08-16 18:20] LABS: Creatinine Urine 6.3 mg/dL
[2024-08-16 18:22] LABS: Sodium Urine Random 80 meq/L
[2024-08-16 18:29] LABS: Urea Random Urine < 67 MG/DL
[2024-08-16 19:09] LABS: Anion Gap 12 mmol/L (4-12); Blood Urea Nitrogen 6 mg/dL (7-17); Calcium 8.4 mg/dL (8.4-10.2); Carbon Dioxide 22 mmol/L (22-30); Chloride 98 mmol/L (98-107); Estimated Glomerular Filt Rate > 60; Glucose 122 mg/dL (65-110); Potassium 3.6 mmol/L (3.4-5.0); Sodium 132 mmol/L (137-145)
[2024-08-16] MEDS: ACETAMINOPHEN 325 MG TABLET 650 MG PO (19:44)
[2024-08-16 23:38] LABS: Sodium 129 mmol/L (137-145)
[2024-08-17] VITALS (13 sets, daily range): BP systolic 124–141; BP diastolic 64–87; PULSE 18–98; RESP 16–18; TEMP 36.2–36.7; O2SAT 95–99; BMI 21.4
[2024-08-17 05:12] LABS: Basophils Absolute Auto 0.1 K/mm3 (0.0-0.1); Basophils Percent Auto 0.9 % (0.2-1.2); Eosinophils Absolute Auto 0.2 K/mm3 (0-0.3); Eosinophils Percent Auto 2.8 % (0-4.4); Hematocrit 34.6 % (37.0-47.0); Hemoglobin 11.1 g/dL (12.0-15.0); Immature Granulocyte Absolute 0.04 K/mm3 (0.00-0.031); Immature Granulocyte Percent A 0.6 % (0-0.5); Lymphocytes Absolute Auto 1.04 K/mm3 (0.9-3.2); Lymphocytes Percent Auto 15.6 % (18.3-44.2); Mean Corpuscular HGB Conc 32.1 g/dl (32-36); Mean Corpuscular Hemoglobin 29.1 pg (26-34); Mean Corpuscular Volume 90.8 fl (80-100); Mean Platelet Volume 9.3 fl (7.4-10.4); Monocytes Absolute Auto 0.8 K/mm3 (0.1-0.6); Neutrophils Absolute Auto 4.5 K/mm3 (1.3-6.7); Neutrophils Percent Auto 68.1 % (45.5-73.1); Platelet Count Result 362 k/mm3 (150-375); Red Blood Count 3.81 M/mm3 (4.2-5.4); Red Cell Distribution Width 16.1 % (11.5-14.5); White Blood Count 6.7 K/mm3 (4.5-10.0)
[2024-08-17 05:24] LABS: Alanine Aminotransferase 73 U/L (6-35); Albumin Level 3.8 g/dL (3.5-5.1); Alkaline Phosphatase 89 U/L (38-126); Anion Gap 12 mmol/L (4-12); Aspartate Amino Transferase 52 U/L (14-36); Bilirubin,Total 0.6 mg/dL (0.2-1.3); Blood Urea Nitrogen 9 mg/dL (7-17); Calcium 8.6 mg/dL (8.4-10.2); Carbon Dioxide 21 mmol/L (22-30); Chloride 95 mmol/L (98-107); Cholesterol 113 mg/dL (0-200); Estimated Glomerular Filt Rate > 60; Glucose 87 mg/dL (65-110); HDL Direct 36 mg/dL; Potassium 3.7 mmol/L (3.4-5.0); Sodium 128 mmol/L (137-145); Triglycerides 63 mg/dL (<150)
[2024-08-17 05:35] LABS: LDL Cholesterol Direct 59 mg/dL
[2024-08-17] MEDS: CALCIUM/VITAMIN D 250 MG/3.125 MCG (125 I.U.) TABLET 1 TABLET PO (08:31)
[2024-08-17] MEDS: DOCUSATE SODIUM 100 MG CAPSULE PO (08:31)
[2024-08-17] MEDS: FOLIC ACID 1 MG TABLET PO (08:31)
[2024-08-17] MEDS: oxyCODONE HCL (*CRX) 5 MG TAB IR PO ×2 (08:32→20:18)
[2024-08-17] MEDS: ATORVASTATIN 10 MG TABLET PO (08:32)
[2024-08-17] MEDS: ASPIRIN 81 MG CHEWABLE TABLET PO (08:32)
--- NOTE | 2024-08-17 08:44 | PM.IMPN ---
Progress Note: A&P Assessment and Plan (1) Cerebrovascular accident: Code(s): I63.9 - Cerebral infarction, unspecified Status: Acute (2) Hyponatremia: Code(s): E87.1 - Hypo-osmolality and hyponatremia Status: Acute (3) Anemia: Code(s): D64.9 - Anemia, unspecified Status: Acute (4) Pancreatic cancer: Code(s): C25.9 - Malignant neoplasm of pancreas, unspecified Status: Acute Plan The patient presented to the emergency department for evaluation of left-sided weakness as detailed in HPI. Labs, imaging, EKG, and all reports were personally reviewed. Last known normal was at 03:30 and she is outside the window for thrombolytic therapy. Brain CT did not show acute findings however clinically she has had a stroke. Neurology consulted for recommendations. Initiate fall precautions and consult PT/OT. She has chronic hyponatremia though sodium is lower than what she typically runs. She received 1 L normal saline in the ED. Hold on further IV fluids as she has had brisk urine output. Check urine and serum osmolalities, urine sodium, and TSH. Repeat BMP is pending this evening. Chronic anemia stable on review of previous labs. Time Spent With Patient Time with patient: Greater than 35 minutes Subjective Date/time seen: 08/17/24 08:44 Interval history: Left side weakness. Narrative retrieved from H/P: This is an 84-year-old female with history of coronary artery disease, thoracic ascending aortic aneurysm, tobacco use (quit in 2022), chronic hyponatremia, anemia, and pancreatic adenocarcinoma on palliative systemic chemotherapy who presented to the emergency department via private vehicle for evaluation of left-sided weakness.?The patient provides the following history. She got up to go to the bathroom at around 03:30 and she had to call her for help as she was too weak to get there on her own. her entire left side was weak. She went back to bed and when she got up this morning she was barely able to use her left arm and the left leg was still weak. She denies vertigo, vision changes, difficulties speaking and swallowing, and paresthesias. She also denies chest pain, pleuritic pain, palpitations, and sensations of racing heart. Her appetite has been okay and she denies nausea, vomiting, and diarrhea. She has not had any falls or injury. In the ED: Vital signs have been stable since arrival. Labs were significant for a hemoglobin of 10.4, sodium 124, chloride 89, creatinine 0.40, AST 54, ALT 70. Head CT showed stable moderate nonspecific cerebral white matter disease. CTA of the head and neck showed no aneurysm or significant intracranial arterial stenosis and 80% stenosis of the proximal right internal carotid artery. Chest x-ray showed no acute cardiopulmonary disease. EKG interpreted per fairing man showed sinus rhythm with possible left atrial enlargement minimal Q-waves in the anterolateral/high lateral leads. 08/17- pt is seen and examined. Pt is very pleasant, family at the bedside. Reports that she is not sleeping well at night as her door gets open and there is a lot of traffic at night- other than than- doing well. left side is weaker and stable at this point. she is working with PT/OT Review of Systems Review of Systems: 12 systems were reviewed and are negative except for as per HPI. Exam Narrative: General: Thin, frail elderly female sitting up in bed in no acute distress. Weight: 44.4 kg. BMI: 19.8. HEENT: PERRL, EOMI. Sclera anicteric. Oral mucosa moist. Neck: Supple. No carotid bruits. Respiratory: Lungs are clear to auscultation bilaterally. Cardiovascular: Regular rate and rhythm with S1-S2. Gastrointestinal: Abdomen is soft, nontender, and nondistended with positive bowel sounds. Skin: Warm and dry. Extremities: No cyanosis, clubbing, or edema. Radial and pedal pulses intact. Neurological: Alert and oriented x2. Cranial nerves 2-12 are gross
--- NOTE | 2024-08-17 12:52 | WPDNEURCNPN ---
Assessment and Plan Assessment and plan (1) Cerebrovascular accident: Code(s): I63.9 - Cerebral infarction, unspecified Status: Acute Plan 1. Stroke with left hemiparesis 2. Hyponatremia 3. History of pancreatic cancer, plan is to obtain the MRI of the brain further documentation of the stroke, and general management as outlined. Consult date: 08/17/24 HPI: Sulema Stovall is a 84 year old female admitted to the hospital through the emergency room with information that her woke up from sleep and found her weak and had to be helped to the bed when she woke up again she had left-sided weakness along with a facial droop and brought to the emergency room, at the time of admission to the ER ,she was taking only supplement, she is not allergic to any medication, she has ongoing history of carotid artery disease, and recurrent falls resulting in the spine fractures ,she has smoked years 60 though at present former smoker, former alcohol intaker and initial exam in the emergency room was normal,vital signs were normal,CBC was normal ,BMP was normal except sodium 124 master, scan was normal ,initial CT scan of the head negative for the bleed or major stroke ,head and neck CTA revealed no aneurysm ,nonspecific white matter [id number] cent stenosis of proximal right internal carotid artery and a negative chest x-ray ,patient has been taking aspirin 81mg daily with atorvastatin 10mg daily, donepezil 5mg p.o. HS with history of memory dysfunction. review of the record revealed that patient does have coronary artery disease, thoracic ascending aortic aneurysm with chronic hyponatremia and history of pancreatic adenocarcinoma for which he she is on palliative systemic chemotherapy. [facility] Past Medical History Medical History Anemia Arthritis Carotid artery disease Chronic hyponatremia Closed L1 vertebral fracture Irritable bowel syndrome Lung nodule Pancreatic cancer Treated at [facility], on palliative chemotherapy. Recurrent falls Sacral fracture, closed Thoracic ascending aortic aneurysm Diameter 4.5cm Echo done 11/2022 CT screening q6 months, last April 2023 Tobacco dependence 2 PPD x60 yrs cessation in Nov Surgical History Surgical History No history of previous surgery Family History Family History Father Alzheimer disease Mother Alzheimer disease Sibling Diabetes mellitus Social History Social History Social History: Surrogate medical decision maker: Drew Stovall, spouse. Code status: Do not resuscitate. Smoking packs per day: 1 Smoking cigarettes per day: 20.0 Years smoked: 60 Smoking pack-years: 60.00 Smoking status: Former smoker Tobacco type: cigarettes Smoking end date: 11/28/22 Alcohol intake: former Substance use: never Substance use type: does not use Do You Feel Safe in your Home?: Yes Lack of Transportation: No Lack of Food: Never True Current Housing: I Have Housing Concerned About Future Housing: No Difficulty Paying Gas/Electric Bills: No Difficulty Paying for Meds: No Currently Unemployed: No Education: Decline to Answer Difficulty w/ Childcare or Family Care: No Living arrangements: with family Spiritual care concerns: No Meds Home Medications and Allergies Home Medications Medication Instructions Recorded Confirmed Type aspirin 81 mg chewable tablet 81 mg PO DAILY@0800 1 month #30 12/03/22 08/16/24 Rx (Children's Aspirin) tabs calcium carbonate 600 mg-vitamin 0.5 cap PO DAILY 05/07/23 08/16/24 History D3 12.5 mcg (500 unit) capsule (Calcium 600 with Vitamin D3) folic acid 1 mg tablet 1 mg PO DAILY 12/11/23 08/16/24 History docusate sodium 100 mg caps
--- NOTE | 2024-08-17 16:24 | ECHO_ITS ---
Patient Info Name: Sulema Stovall Age: 84 years : 1940 Gender: Female Ht: 59 in Wt: 97 lbs BSA: 1.35 m2 HR: 75 bpm BP: 138 / 67 mmHg Technical Quality: Fair Exam Date: 08/17/2024 11:08 AM Exam Location: Echo Lab Patient Status: Inpatient Admit Date: 08/17/2024 Staff Ordering Physician: Love Villegas PA-C Oncology Radiation Physician: Charleen Forte RDCS Attending Provider: Amber Botello MD Referring Physician: Bakari BOYER; Exam Type: CA echo doppler w bubble study Study Info Indications - stroke Complete two-dimensional, color flow and Doppler transthoracic echocardiogram is performed with agitated saline. Contrast/Agitated Saline Contrast/Ag. Saline: Agitated Saline Amount: 3.00 ml Existing IV Access: Yes IV Access Condition: patent with no signs of infiltration Summary 1. Left ventricular chamber dimension is normal. 2. Left ventricular systolic function is normal, estimated at 65-70%. 3. The left ventricular diastolic function is grade I diastolic dysfunction. 4. E/e' 13 is mildly elevated. 5. Agitated saline injection opacified right side cardiac chambers with shunt of significant bubbles to left side cardiac chambers suggestive of patent foramen ovale. 6. There is mild aortic valve sclerosis. 7. There is mild aortic valve regurgitation. 8. The mitral valve has mildly calcified annulus. 9. There is mild mitral valve regurgitation. 10. There is mild to moderate tricuspid valve regurgitation. 11. No pulmonary hypertension, estimated pulmonary arterial systolic pressure is 30 mmHg. Left Ventricle E/e' 13 is mildly elevated. Left ventricular chamber dimension is normal. Left ventricular systolic function is normal, estimated at 65-70%. The left ventricular diastolic function is grade I diastolic dysfunction. Right Ventricle Right ventricular chamber dimension is normal. Right ventricular systolic function is normal. Left Atria Left atrial chamber dimension is normal. Right Atria Right atrial chamber dimension is normal. Atrial Septum Agitated saline injection opacified right side cardiac chambers with shunt of significant bubbles to left side cardiac chambers suggestive of patent foramen ovale. Suspected patent foramen ovale visualized by 2D and agitated saline imaging. Aortic Valve The aortic valve is trileaflet. There is mild aortic valve sclerosis. There is no aortic valve stenosis. There is mild aortic valve regurgitation. Pulmonic Valve There is no pulmonic regurgitation. Mitral Valve The mitral valve has mildly calcified annulus. There is no mitral valve stenosis. There is mild mitral valve regurgitation. Tricuspid Valve There is mild to moderate tricuspid valve regurgitation. No pulmonary hypertension, estimated pulmonary arterial systolic pressure is 30 mmHg. Pericardium/Pleural There is no pericardial effusion. Inferior Vena Cava Normal inferior vena cava with >50% collapse upon inspiration consistent with normal right atrial pressure, 5 mmHg. Aorta The aortic root size at the sinus of Valsalva is normal. Left Ventricular Outflow Tract Name Value Normal LVOT 2D LVOT Diameter 1.9 cm LVOT Doppler LVOT
[2024-08-17] MEDS: DONEPEZIL HCL 5 MG TABLET PO (20:17)
[2024-08-18] VITALS (11 sets, daily range): BP systolic 139–163; BP diastolic 72–89; PULSE 62–95; RESP 16–20; TEMP 36.7–36.8; O2SAT 95–99
[2024-08-18] MEDS: ACETAMINOPHEN 325 MG TABLET 650 MG PO (00:10)
[2024-08-18] MEDS: levETIRAcetam IV 750 MG in DEXTROSE 5% 100 ML 430 MG IVPB (08:52)
--- NOTE | 2024-08-18 09:37 | PM.IMPN ---
Progress Note: A&P Assessment and Plan (1) Cerebrovascular accident: Code(s): I63.9 - Cerebral infarction, unspecified Status: Acute Assessment and Plan: The patient presented to the emergency department for evaluation of left-sided weakness as detailed in HPI. Labs, imaging, EKG, and all reports were personally reviewed. Last known normal was at 03:30 and she is outside the window for thrombolytic therapy. Brain CT did not show acute findings however clinically she has had a stroke. Neurology consulted for recommendations. 08/18 this am- confusion and unable to follow commands. Repeated CT scan. neurology saw pt this am- appreciate recommendations - will keep pt NPO for now- speech eval- gentle iv hydration for now (2) Hyponatremia: Code(s): E87.1 - Hypo-osmolality and hyponatremia Status: Acute (3) Anemia: Code(s): D64.9 - Anemia, unspecified Status: Acute (4) Pancreatic cancer: Code(s): C25.9 - Malignant neoplasm of pancreas, unspecified Status: Acute Plan Initiate fall precautions and consult PT/OT. She has chronic hyponatremia though sodium is lower than what she typically runs. She received 1 L normal saline in the ED. Check urine and serum osmolalities, urine sodium, and TSH. Repeat BMP is pending this evening. Chronic anemia stable on review of previous labs. Time Spent With Patient Time with patient: Greater than 35 minutes Subjective Date/time seen: 08/18/24 09:37 Interval history: Left side weakness. Narrative retrieved from H/P: This is an 84-year-old female with history of coronary artery disease, thoracic ascending aortic aneurysm, tobacco use (quit in 2022), chronic hyponatremia, anemia, and pancreatic adenocarcinoma on palliative systemic chemotherapy who presented to the emergency department via private vehicle for evaluation of left-sided weakness.?The patient provides the following history. She got up to go to the bathroom at around 03:30 and she had to call her for help as she was too weak to get there on her own. her entire left side was weak. She went back to bed and when she got up this morning she was barely able to use her left arm and the left leg was still weak. She denies vertigo, vision changes, difficulties speaking and swallowing, and paresthesias. She also denies chest pain, pleuritic pain, palpitations, and sensations of racing heart. Her appetite has been okay and she denies nausea, vomiting, and diarrhea. She has not had any falls or injury. In the ED: Vital signs have been stable since arrival. Labs were significant for a hemoglobin of 10.4, sodium 124, chloride 89, creatinine 0.40, AST 54, ALT 70. Head CT showed stable moderate nonspecific cerebral white matter disease. CTA of the head and neck showed no aneurysm or significant intracranial arterial stenosis and 80% stenosis of the proximal right internal carotid artery. Chest x-ray showed no acute cardiopulmonary disease. EKG interpreted per solutions consultant showed sinus rhythm with possible left atrial enlargement minimal Q-waves in the anterolateral/high lateral leads. 08/17- pt is seen and examined. Pt is very pleasant, family at the bedside. Reports that she is not sleeping well at night as her door gets open and there is a lot of traffic at night- other than than- doing well. left side is weaker and stable at this point. she is working with PT/OT. 08/18- reported confusion overnight and word salad - was seen per neurology this am and CT scan is repeated. Holding PO meds for now. speech eval ordered. Review of Systems Review of Systems: pt is confused this am Exam Narrative: General: Thin, frail elderly female HEENT: PERRL, EOMI. Sclera anicteric. Oral mucosa moist. Neck: Supple. No carotid bruits. Respiratory: Lungs are clear to auscultation bilaterally. Cardiovascular: Regular rate and rhythm with S1-S2. Gastrointestinal: Abdomen is soft, nontender, and
[2024-08-18] MEDS: SODIUM CHLORIDE 0.9% IV 1,000 ML 75 ML IV CONT (12:37)
--- NOTE | 2024-08-18 14:20 | WPDNEUROPN ---
Progress Note: A&P Assessment and Plan (1) CVA (cerebrovascular accident): Code(s): I63.9 - Cerebral infarction, unspecified Status: Acute Plan Where the patient was admitted with a right sided stroke with the left hemiparesis now has developed speech difficulties particularly receptive aphasia with some mixed features suggestive of a lesion most likely the left hemisphere depending upon handedness. It can happen with a right hemispheric stroke also in a left-handed person in 25% cases. The treatment is still be antiplatelets and statins. I will suggest aspirin 81 mg a day and a Plavix 300 mg now and 75 mg daily and continue with the atorvastatin but increase the dose to 40 mg a day. We shall check her blood levels for lipid profile and also B12 and folic acid level vitamin-D and thyroid function test. I shall also check her methylmalonic acid level and homocystine levels. Subjective Date/time seen: 08/18/24 14:20 Interval history: The patient admitted with the left-sided weakness 2 days ago and has been seen by Dr. Diane. Previous notes and MRI and a CT angiogram films were reviewed. Patient has white matter disease besides the infarct noted in the right basal ganglia which would correlate with the finding of left-sided weakness. Now the patient appears to be more confused. When I walked since he is talking something that is hard to understand. Upon further observation it was noted that she is clearly having paraphasic errors and does not follow or understand any of the commands given. 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 A CT scan of brain was performed overnight because it was thought the patient is confused however did not show any acute finding on the left side. patient has not had any passing out spell or seizures. Review of Systems Review of Systems: ROS unobtainable: Yes unobtainable due to mental status Exam Narrative: Patient is talking almost constantly and difficult to understand and has paraphasic errors. Does not follow 1 or 2 step commands she appears to be weak on the left side of the body she is unable to cooperate further. No involuntary movements are seen. Objective Data Vital Signs Vital Signs: Vital Signs - 24 hr 08/17/24 16:20 08/17/24 16:00 08/17/24 19:54 Temperature 97.2 F L Pulse Rate 92 92 92 Respiratory Rate 16 16 Blood Pressure 141/85 H Pulse Oximetry 95 95 Oxygen Delivery Room Air Fraction of Inspired Oxygen 21 08/17/24 20:00 08/17/24 20:35 08/18/24 01:17 Temperature 98.1 F 98.2 F Pulse Rate 95 18 L 80 Respiratory Rate 18 18 Blood Pressure 124/64 139/87 Pulse Oximetry 99 98 Oxygen Delivery Fraction of Inspired Oxygen 08/17/24 21:36 08/18/24 00:00 08/18/24 04:00 Temperature Pulse Rate 95 83 Respiratory Rate Blood Pressure Pulse Oximetry 98 Oxygen Delivery Room Air Fraction of Inspired Oxygen 08/18/24 06:00 08/18/24 08:30 08/18/24 08:00 Temperature 98.0 F Pulse Rate 90 93 Respiratory Rate 16 Blood Pressure 144/81 H Pulse Oximetry 98 Oxygen Delivery Room Air Fraction of Inspired Oxygen 08/18/24 12:00 Temperature Pulse Rate 95 Respiratory Rate Blood Pressure Pulse Oximetry Oxygen Delivery Fraction of Inspired Oxygen Intake/Output Intake/Output: Intake & Output 08/15/24 08/16/24 08/17/24 08/18/24 23:59 23:59 23:59 23:59 Intake Total 120 1370 200 Output Total 300 1150 Balance -180 220 200 Meds/Results Medications: Active Medications Generic Name Dose Route Start Last Admin Trade Name Freq PRN Reason Stop Dose Admin Acetaminophen 650 mg 08/16/24 16:24 08/18/24 00:10 Acetaminophen 325 Mg Tablet PO 650 mg Q6H PRN Administration Mild Pain (1-3) or Fever Aspirin 81 mg 08/17/24 08:00 08/18/24 10:58 Aspirin 81 Mg Chewable Tablet PO Not Given AKTHY
[2024-08-18 15:21] LABS: Cholesterol 102 mg/dL (0-200); HDL Direct 37 mg/dL; Triglycerides 59 mg/dL (<150)
[2024-08-18 15:32] LABS: LDL Cholesterol Direct 49 mg/dL
--- NOTE | 2024-08-18 16:05 | PCSTNOTE ---
Please refer to the Bedside Swallow Evaluation in the EMR. Please note, silent aspiration cannot be ruled out at bedside.
[2024-08-18] MEDS: CLOPIDOGREL BISULFATE 300 MG TABLET PO (17:02)
[2024-08-18] MEDS: DONEPEZIL HCL 5 MG TABLET PO (20:17)
[2024-08-18] MEDS: oxyCODONE HCL (*CRX) 5 MG TAB IR PO (20:17)
[2024-08-19] VITALS (9 sets, daily range): BP systolic 136–141; BP diastolic 70–72; PULSE 86–115; RESP 16–20; TEMP 36.6–36.9; O2SAT 96–99
[2024-08-19] MEDS: SODIUM CHLORIDE 0.9% IV 1,000 ML 75 ML IV CONT ×2 (06:30→15:21)
[2024-08-19] MEDS: ASPIRIN 81 MG CHEWABLE TABLET PO (10:23)
[2024-08-19] MEDS: CLOPIDOGREL BISULFATE 75 MG TABLET PO (10:23)
[2024-08-19] MEDS: CALCIUM/VITAMIN D 250 MG/3.125 MCG (125 I.U.) TABLET 1 TABLET PO (10:24)
[2024-08-19] MEDS: ATORVASTATIN 40 MG TABLET PO (10:24)
[2024-08-19] MEDS: FOLIC ACID 1 MG TABLET PO (10:24)
--- NOTE | 2024-08-19 11:23 | PCPTNOTE ---
Attempted to see patient for PT, however patient unable to be aroused enough to participated with PT at this time.
[2024-08-19 13:47] LABS: Osmolality, Urine 236 mOsm/kg (50-1200)
--- NOTE | 2024-08-19 14:38 | PCPTNOTE ---
Attempted to see patient for PT, however patient declined. Patient sound asleep upon entering room, when aroused patient declined PT.
[2024-08-19] MEDS: DONEPEZIL HCL 5 MG TABLET PO (20:23)
[2024-08-20] VITALS (10 sets, daily range): BP systolic 137–145; BP diastolic 68–73; PULSE 61–102; RESP 18–24; TEMP 36.4–36.9; O2SAT 95–98
[2024-08-20] MEDS: SODIUM CHLORIDE 0.9% IV 1,000 ML 75 ML IV CONT ×2 (08:15→21:43)
--- NOTE | 2024-08-20 08:15 | PC.NURSE ---
verified with pharmacy that I am able to crush medications scheduled for day shift today. Okay to crush
[2024-08-20] MEDS: ATORVASTATIN 40 MG TABLET PO (08:16)
[2024-08-20] MEDS: FOLIC ACID 1 MG TABLET PO (08:16)
[2024-08-20] MEDS: CLOPIDOGREL BISULFATE 75 MG TABLET PO (08:16)
[2024-08-20] MEDS: ASPIRIN 81 MG CHEWABLE TABLET PO (08:16)
[2024-08-20] MEDS: CALCIUM/VITAMIN D 250 MG/3.125 MCG (125 I.U.) TABLET 1 TABLET PO (08:17)
--- NOTE | 2024-08-20 10:32 | PM.IMPN ---
Progress Note: A&P Assessment and Plan (1) Cerebrovascular accident: Code(s): I63.9 - Cerebral infarction, unspecified Status: Acute Assessment and Plan: The patient presented to the emergency department for evaluation of left-sided weakness as detailed in HPI. Labs, imaging, EKG, and all reports were personally reviewed. Last known normal was at 03:30 and she is outside the window for thrombolytic therapy. Brain CT did not show acute findings however clinically she has had a stroke. Neurology consulted for recommendations. 08/18 this am- confusion and unable to follow commands. Repeated CT scan. neurology saw pt this am- appreciate recommendations - will keep pt NPO for now- speech eval- gentle iv hydration for now -08/19- able to pass speech eval with cues (2) Hyponatremia: Code(s): E87.1 - Hypo-osmolality and hyponatremia Status: Acute (3) Anemia: Code(s): D64.9 - Anemia, unspecified Status: Acute (4) Pancreatic cancer: Code(s): C25.9 - Malignant neoplasm of pancreas, unspecified Status: Acute Plan Initiate fall precautions and consult PT/OT. She has chronic hyponatremia though sodium is lower than what she typically runs. She received 1 L normal saline in the ED. Check urine and serum osmolalities, urine sodium, and TSH. Repeat BMP is pending this evening. Chronic anemia stable on review of previous labs. Time Spent With Patient Time with patient: Greater than 35 minutes Subjective Date/time seen: 08/19/24 0900 Interval history: Left side weakness. Narrative retrieved from H/P: This is an 84-year-old female with history of coronary artery disease, thoracic ascending aortic aneurysm, tobacco use (quit in 2022), chronic hyponatremia, anemia, and pancreatic adenocarcinoma on palliative systemic chemotherapy who presented to the emergency department via private vehicle for evaluation of left-sided weakness.?The patient provides the following history. She got up to go to the bathroom at around 03:30 and she had to call her for help as she was too weak to get there on her own. her entire left side was weak. She went back to bed and when she got up this morning she was barely able to use her left arm and the left leg was still weak. She denies vertigo, vision changes, difficulties speaking and swallowing, and paresthesias. She also denies chest pain, pleuritic pain, palpitations, and sensations of racing heart. Her appetite has been okay and she denies nausea, vomiting, and diarrhea. She has not had any falls or injury. In the ED: Vital signs have been stable since arrival. Labs were significant for a hemoglobin of 10.4, sodium 124, chloride 89, creatinine 0.40, AST 54, ALT 70. Head CT showed stable moderate nonspecific cerebral white matter disease. CTA of the head and neck showed no aneurysm or significant intracranial arterial stenosis and 80% stenosis of the proximal right internal carotid artery. Chest x-ray showed no acute cardiopulmonary disease. EKG interpreted per high school math teacher showed sinus rhythm with possible left atrial enlargement minimal Q-waves in the anterolateral/high lateral leads. 08/17- pt is seen and examined. Pt is very pleasant, family at the bedside. Reports that she is not sleeping well at night as her door gets open and there is a lot of traffic at night- other than than- doing well. left side is weaker and stable at this point. she is working with PT/OT. 08/18- reported confusion overnight and word salad - was seen per neurology this am and CT scan is repeated. Holding PO meds for now. speech eval ordered. 08/19 better this am- able to talk Review of Systems Review of Systems: pt is confused this am Exam Narrative: General: Thin, frail elderly female HEENT: PERRL, EOMI. Sclera anicteric. Oral mucosa moist. Neck: Supple. No carotid bruits. Respiratory: Lungs are clear to auscultation bilaterally. Cardiovascular: Regular rat
--- NOTE | 2024-08-20 10:34 | PM.IMPN ---
Progress Note: A&P Assessment and Plan (1) Cerebrovascular accident: Code(s): I63.9 - Cerebral infarction, unspecified Status: Acute Assessment and Plan: The patient presented to the emergency department for evaluation of left-sided weakness as detailed in HPI. Labs, imaging, EKG, and all reports were personally reviewed. Last known normal was at 03:30 and she is outside the window for thrombolytic therapy. Brain CT did not show acute findings however clinically she has had a stroke. Neurology consulted for recommendations. 08/18 this am- confusion and unable to follow commands. Repeated CT scan. neurology saw pt this am- appreciate recommendations - will keep pt NPO for now- speech eval- gentle iv hydration for now -08/19- able to pass speech eval with cues (2) Hyponatremia: Code(s): E87.1 - Hypo-osmolality and hyponatremia Status: Acute (3) Anemia: Code(s): D64.9 - Anemia, unspecified Status: Acute (4) Pancreatic cancer: Code(s): C25.9 - Malignant neoplasm of pancreas, unspecified Status: Acute Plan Initiate fall precautions and consult PT/OT. She has chronic hyponatremia though sodium is lower than what she typically runs. She received 1 L normal saline in the ED. Check urine and serum osmolalities, urine sodium, and TSH. Repeat BMP is pending this evening. Chronic anemia stable on review of previous labs. Time Spent With Patient Time with patient: Greater than 35 minutes Subjective Date/time seen: 08/20/24 10:34 Interval history: Left side weakness. Narrative retrieved from H/P: This is an 84-year-old female with history of coronary artery disease, thoracic ascending aortic aneurysm, tobacco use (quit in 2022), chronic hyponatremia, anemia, and pancreatic adenocarcinoma on palliative systemic chemotherapy who presented to the emergency department via private vehicle for evaluation of left-sided weakness.?The patient provides the following history. She got up to go to the bathroom at around 03:30 and she had to call her for help as she was too weak to get there on her own. her entire left side was weak. She went back to bed and when she got up this morning she was barely able to use her left arm and the left leg was still weak. She denies vertigo, vision changes, difficulties speaking and swallowing, and paresthesias. She also denies chest pain, pleuritic pain, palpitations, and sensations of racing heart. Her appetite has been okay and she denies nausea, vomiting, and diarrhea. She has not had any falls or injury. In the ED: Vital signs have been stable since arrival. Labs were significant for a hemoglobin of 10.4, sodium 124, chloride 89, creatinine 0.40, AST 54, ALT 70. Head CT showed stable moderate nonspecific cerebral white matter disease. CTA of the head and neck showed no aneurysm or significant intracranial arterial stenosis and 80% stenosis of the proximal right internal carotid artery. Chest x-ray showed no acute cardiopulmonary disease. EKG interpreted per dry pan operator showed sinus rhythm with possible left atrial enlargement minimal Q-waves in the anterolateral/high lateral leads. 08/17- pt is seen and examined. Pt is very pleasant, family at the bedside. Reports that she is not sleeping well at night as her door gets open and there is a lot of traffic at night- other than than- doing well. left side is weaker and stable at this point. she is working with PT/OT. 08/18- reported confusion overnight and word salad - was seen per neurology this am and CT scan is repeated. Holding PO meds for now. speech eval ordered. 08/19 better this am- able to talk 08/20- seem and examined. Pt is confused about date but was able to tell me her name, and place. she is alert and cooperative. Ate everything this am. Review of Systems Review of Systems: pt is confused this am Exam Narrative: General: Thin, frail elderly female HEENT: PERRL, EOMI. Sclera
[2024-08-20] MEDS: DONEPEZIL HCL 5 MG TABLET PO (20:54)
[2024-08-21] VITALS (9 sets, daily range): BP systolic 146–155; BP diastolic 70–76; PULSE 97–112; RESP 16–17; TEMP 36.4–36.7; O2SAT 96–97
--- NOTE | 2024-08-21 08:02 | PM.IMPN ---
Progress Note: A&P Assessment and Plan (1) Cerebrovascular accident: Code(s): I63.9 - Cerebral infarction, unspecified Status: Acute Assessment and Plan: The patient presented to the emergency department for evaluation of left-sided weakness as detailed in HPI. Labs, imaging, EKG, and all reports were personally reviewed. Last known normal was at 03:30 and she is outside the window for thrombolytic therapy. Brain CT did not show acute findings however clinically she has had a stroke. Neurology consulted for recommendations. 08/18 this am- confusion and unable to follow commands. Repeated CT scan. neurology saw pt this am- appreciate recommendations - will keep pt NPO for now- speech eval- gentle iv hydration for now -08/19- able to pass speech eval with cues 08/20- eating well- encouraged oral intake 08/21- stable- no acute changes- will monitor neuro checks, neurology is following- appreciate recommendations (2) Hyponatremia: Code(s): E87.1 - Hypo-osmolality and hyponatremia Status: Acute (3) Anemia: Code(s): D64.9 - Anemia, unspecified Status: Acute (4) Pancreatic cancer: Code(s): C25.9 - Malignant neoplasm of pancreas, unspecified Status: Acute Plan Initiate fall precautions and consult PT/OT. She has chronic hyponatremia though sodium is lower than what she typically runs. She received 1 L normal saline in the ED. Check urine and serum osmolalities, urine sodium, and TSH. Repeat BMP is pending this evening. Chronic anemia stable on review of previous labs. Time Spent With Patient Time with patient: Greater than 35 minutes Subjective Date/time seen: 08/21/24 08:02 Interval history: Left side weakness. Narrative retrieved from H/P: This is an 84-year-old female with history of coronary artery disease, thoracic ascending aortic aneurysm, tobacco use (quit in 2022), chronic hyponatremia, anemia, and pancreatic adenocarcinoma on palliative systemic chemotherapy who presented to the emergency department via private vehicle for evaluation of left-sided weakness.?The patient provides the following history. She got up to go to the bathroom at around 03:30 and she had to call her for help as she was too weak to get there on her own. her entire left side was weak. She went back to bed and when she got up this morning she was barely able to use her left arm and the left leg was still weak. She denies vertigo, vision changes, difficulties speaking and swallowing, and paresthesias. She also denies chest pain, pleuritic pain, palpitations, and sensations of racing heart. Her appetite has been okay and she denies nausea, vomiting, and diarrhea. She has not had any falls or injury. In the ED: Vital signs have been stable since arrival. Labs were significant for a hemoglobin of 10.4, sodium 124, chloride 89, creatinine 0.40, AST 54, ALT 70. Head CT showed stable moderate nonspecific cerebral white matter disease. CTA of the head and neck showed no aneurysm or significant intracranial arterial stenosis and 80% stenosis of the proximal right internal carotid artery. Chest x-ray showed no acute cardiopulmonary disease. EKG interpreted per precision farming coordinator showed sinus rhythm with possible left atrial enlargement minimal Q-waves in the anterolateral/high lateral leads. 08/17- pt is seen and examined. Pt is very pleasant, family at the bedside. Reports that she is not sleeping well at night as her door gets open and there is a lot of traffic at night- other than than- doing well. left side is weaker and stable at this point. she is working with PT/OT. 08/18- reported confusion overnight and word salad - was seen per neurology this am and CT scan is repeated. Holding PO meds for now. speech eval ordered. 08/19 better this am- able to talk 08/20- seem and examined. Pt is confused about date but was able to tell me her name, and place. she is alert and cooperative. Ate everything this am. 08/21-
[2024-08-21] MEDS: CLOPIDOGREL BISULFATE 75 MG TABLET PO (10:34)
[2024-08-21] MEDS: FOLIC ACID 1 MG TABLET PO (10:34)
[2024-08-21] MEDS: ATORVASTATIN 40 MG TABLET PO (10:34)
[2024-08-21] MEDS: CALCIUM/VITAMIN D 250 MG/3.125 MCG (125 I.U.) TABLET 1 TABLET PO (10:34)
[2024-08-21] MEDS: ASPIRIN 81 MG CHEWABLE TABLET PO (10:35)
[2024-08-21] MEDS: SODIUM CHLORIDE 0.9% IV 1,000 ML 75 ML IV CONT ×2 (10:35→23:13)
[2024-08-21] MEDS: ACETAMINOPHEN 325 MG TABLET 650 MG PO (18:11)
[2024-08-21] MEDS: DONEPEZIL HCL 5 MG TABLET PO (20:05)
[2024-08-21] MEDS: oxyCODONE HCL (*CRX) 5 MG TAB IR PO (20:05)
[2024-08-22] VITALS (11 sets, daily range): BP systolic 138–153; BP diastolic 72–81; PULSE 66–124; RESP 12–18; TEMP 36.4–37; O2SAT 97–99
[2024-08-22] MEDS: ACETAMINOPHEN 325 MG TABLET 650 MG PO (06:17)
[2024-08-22] MEDS: CLOPIDOGREL BISULFATE 75 MG TABLET PO (08:26)
[2024-08-22] MEDS: ATORVASTATIN 40 MG TABLET PO (08:26)
[2024-08-22] MEDS: ASPIRIN 81 MG CHEWABLE TABLET PO (08:26)
[2024-08-22] MEDS: FOLIC ACID 1 MG TABLET PO (08:26)
[2024-08-22] MEDS: CALCIUM/VITAMIN D 250 MG/3.125 MCG (125 I.U.) TABLET 1 TABLET PO (08:27)
--- NOTE | 2024-08-22 12:07 | PCNFU ---
Nutrition Follow-Up Complete: Inadequate Oral Intake as related to CVA as evidenced by poor po intake. Meet estimated nutritional needs - Progressing with goal. Intakes 20-100% on current diet. Continue with same goal Goal: Pt current nutrition is Regular diet, Puree. Ensure Compact BID for additional 220 kcal and 9 g protein each. Nutrition recommendation: No new nutrition recommendations. Continue with current nutrition care plan and orders. Agree with orders Last recorded weight is 51 kg. Bowel Motility: +1 BM 08/19/24 Labs Reviewed: No new labs Meds Noted: Donepezil, folic acid Skin: No skin issues Additional Notes: Eating and drinking well on puree diet. Working with therapy. Expect discharge to [facility]. Continue to monitor Will monitor weight , labs, skin, oral intake, meds every 5 days.
[2024-08-22] MEDS: SODIUM CHLORIDE 0.9% IV 1,000 ML 75 ML IV CONT (12:23)
--- NOTE | 2024-08-22 15:10 | PM.IMPN ---
Progress Note: A&P Assessment and Plan (1) Cerebrovascular accident: Code(s): I63.9 - Cerebral infarction, unspecified Status: Acute Assessment and Plan: The patient presented to the emergency department for evaluation of left-sided weakness as detailed in HPI. Labs, imaging, EKG, and all reports were personally reviewed. Last known normal was at 03:30 and she is outside the window for thrombolytic therapy. Brain CT did not show acute findings however clinically she has had a stroke. Neurology consulted for recommendations. 08/18 this am- confusion and unable to follow commands. Repeated CT scan. neurology saw pt this am- appreciate recommendations - will keep pt NPO for now- speech eval- gentle iv hydration for now -08/19- able to pass speech eval with cues 08/20- eating well- encouraged oral intake 08/21- stable- no acute changes- will monitor neuro checks, neurology is following- appreciate recommendations 08/22 working with pt/ot. eating better still left sided deficit but baseline (2) Hyponatremia: Code(s): E87.1 - Hypo-osmolality and hyponatremia Status: Acute (3) Anemia: Code(s): D64.9 - Anemia, unspecified Status: Acute (4) Pancreatic cancer: Code(s): C25.9 - Malignant neoplasm of pancreas, unspecified Status: Acute Plan Initiate fall precautions and consult PT/OT. She has chronic hyponatremia though sodium is lower than what she typically runs. She received 1 L normal saline in the ED. Check urine and serum osmolalities, urine sodium, and TSH. monitor BMP Chronic anemia stable on review of previous labs. Time Spent With Patient Time with patient: Greater than 35 minutes Subjective Date/time seen: 08/22/24 15:10 Interval history: Left side weakness. Narrative retrieved from H/P: This is an 84-year-old female with history of coronary artery disease, thoracic ascending aortic aneurysm, tobacco use (quit in 2022), chronic hyponatremia, anemia, and pancreatic adenocarcinoma on palliative systemic chemotherapy who presented to the emergency department via private vehicle for evaluation of left-sided weakness.?The patient provides the following history. She got up to go to the bathroom at around 03:30 and she had to call her for help as she was too weak to get there on her own. her entire left side was weak. She went back to bed and when she got up this morning she was barely able to use her left arm and the left leg was still weak. She denies vertigo, vision changes, difficulties speaking and swallowing, and paresthesias. She also denies chest pain, pleuritic pain, palpitations, and sensations of racing heart. Her appetite has been okay and she denies nausea, vomiting, and diarrhea. She has not had any falls or injury. In the ED: Vital signs have been stable since arrival. Labs were significant for a hemoglobin of 10.4, sodium 124, chloride 89, creatinine 0.40, AST 54, ALT 70. Head CT showed stable moderate nonspecific cerebral white matter disease. CTA of the head and neck showed no aneurysm or significant intracranial arterial stenosis and 80% stenosis of the proximal right internal carotid artery. Chest x-ray showed no acute cardiopulmonary disease. EKG interpreted per windshield wiper repairer showed sinus rhythm with possible left atrial enlargement minimal Q-waves in the anterolateral/high lateral leads. 08/17- pt is seen and examined. Pt is very pleasant, family at the bedside. Reports that she is not sleeping well at night as her door gets open and there is a lot of traffic at night- other than than- doing well. left side is weaker and stable at this point. she is working with PT/OT. 08/18- reported confusion overnight and word salad - was seen per neurology this am and CT scan is repeated. Holding PO meds for now. speech eval ordered. 08/19 better this am- able to talk 08/20- seem and examined. Pt is confused about date but was able to tell me her name, and place. she is
--- NOTE | 2024-08-22 18:14 | WPDNEUROPN ---
Progress Note: A&P Assessment and Plan (1) Cerebrovascular accident: Code(s): I63.9 - Cerebral infarction, unspecified Status: Acute Plan It was noted that the right CB was audible stroke wears the appearance of Wernicke's aphasia proceed to the left hemisphere which interestingly has now improved over the course of last few days. Continue antiplatelets and statins as planned before. She will require rehab for the left persistent left-sided weakness. Subjective Date/time seen: 08/22/24 18:14 Interval history: patient 84-year-old with a history of right CVA with left hemiparesis subsequent to that she has developed he speech difficulties presenting as predominantly Wernicke's aphasia. She shows a significant improvement today in her speech. No other additional symptoms were reported. Review of Systems Review of Systems: All systems reviewed & are unremarkable except as noted in HPI and below Exam Narrative: Fully conscious alert oriented to self time place and person. Her speech has remarkably improved and she is able to follow 1 and two-step commands. No aphasia or dysarthria at this time for she has persistent weakness of the left upper lower limb power grade 3-4/5 cranial nerves however were fairly intact. No other significant focal deficit. Objective Data Vital Signs Vital Signs: Vital Signs - 24 hr 08/21/24 20:14 08/21/24 20:00 08/22/24 00:00 Temperature 98.1 F Pulse Rate 105 H 112 H 106 H Respiratory Rate 16 Blood Pressure 155/74 H Pulse Oximetry 97 Oxygen Delivery 08/22/24 04:00 08/22/24 04:27 08/22/24 08:27 Temperature 97.6 F Pulse Rate 109 H 66 Respiratory Rate 17 18 Blood Pressure 153/81 H Pulse Oximetry 97 97 Oxygen Delivery Room Air 08/22/24 08:04 08/22/24 12:01 08/22/24 14:00 Temperature 98.6 F Pulse Rate 114 H 124 H 97 Respiratory Rate 12 Blood Pressure 149/75 H Pulse Oximetry 99 Oxygen Delivery 08/22/24 16:03 Temperature Pulse Rate 99 Respiratory Rate Blood Pressure Pulse Oximetry Oxygen Delivery Intake/Output Intake/Output: Intake & Output 08/19/24 08/20/24 08/21/24 08/22/24 23:59 23:59 23:59 23:59 Intake Total 1903.8 2840 2712.5 2317.5 Output Total 900 1450 700 Balance 1903.8 1940 1262.5 1617.5 Meds/Results Medications: Active Medications Generic Name Dose Route Start Last Admin Trade Name Freq PRN Reason Stop Dose Admin Acetaminophen 650 mg 08/16/24 16:24 08/22/24 06:17 Acetaminophen 325 Mg Tablet PO 650 mg Q6H PRN Administration Mild Pain (1-3) or Fever Aspirin 81 mg 08/17/24 08:00 08/22/24 08:26 Aspirin 81 Mg Chewable Tablet PO 81 mg DAILY@0800 JANICE Administration Atorvastatin Calcium 40 mg 08/19/24 09:00 08/22/24 08:26 Atorvastatin 40 Mg Tablet PO 40 mg DAILY JANICE Administration Calcium Carbonate 1 tablet 08/17/24 09:00 08/22/24 08:27 Calcium/Vitamin D 250 Mg/3.125 Mcg (125 I.U.) Tablet PO 09/16/24 08:59 1 tablet DAILY JANICE Administration Clopidogrel Bisulfate 75 mg 08/19/24 09:00 08/22/24 08:26 Clopidogrel Bisulfate 75 Mg Tablet PO 75 mg QAM JANICE Administration Docusate Sodium 100 mg 08/19/24 09:10 Docusate Sodium 100 Mg Capsule PO DAILY PRN Constipation Donepezil HCl 5 mg 08/17/24 21:00 08/21/24 20:05 Donepezil Hcl 5 Mg Tablet PO 5 mg QHS JANICE Administration Folic Acid 1 mg 08/17/24 09:00 08/22/24 08:26 Folic Acid 1 Mg Tablet PO 1 mg DAILY JANICE Administration Sodium Chloride 1,000 mls @ 75 mls/hr 08/18/24 11:45 08/22/24 12:23 Normal Saline Iv IV CONT 75 mls/hr .[id number] JANICE Administration Oxycodone HCl 5 mg 08/19/24 09:11 08/21/24 20:05 Oxycodone Hcl (*Crx) 5 Mg Tab Ir PO 5 mg Q12HR PRN Administration pain Radiology Results: ITS Impressions Chest X-Ray 08/16/24 13:26 IMPRESSION: No acute cardiopulmonary pathology. Head/Neck CTA 07/25
[2024-08-22] MEDS: DONEPEZIL HCL 5 MG TABLET PO (20:51)
[2024-08-23 00:04] VITALS: PULSE 106
[2024-08-23] MEDS: SODIUM CHLORIDE 0.9% IV 1,000 ML 75 ML IV CONT (01:39)
[2024-08-23 04:00] VITALS: PULSE 103
[2024-08-23 05:24] VITALS: BP 153/76; PULSE 53; RESP 16; TEMP 36.4; O2SAT 98
[2024-08-23 08:00] VITALS: PULSE 109
--- NOTE | 2024-08-23 08:17 | PM.IMPN ---
Progress Note: A&P Assessment and Plan (1) Cerebrovascular accident: Code(s): I63.9 - Cerebral infarction, unspecified Status: Acute Assessment and Plan: The patient presented to the emergency department for evaluation of left-sided weakness as detailed in HPI. Labs, imaging, EKG, and all reports were personally reviewed. Last known normal was at 03:30 and she is outside the window for thrombolytic therapy. Brain CT did not show acute findings however clinically she has had a stroke. Neurology consulted for recommendations. 08/18 this am- confusion and unable to follow commands. Repeated CT scan. neurology saw pt this am- appreciate recommendations - will keep pt NPO for now- speech eval- gentle iv hydration for now -08/19- able to pass speech eval with cues 08/20- eating well- encouraged oral intake 08/21- stable- no acute changes- will monitor neuro checks, neurology is following- appreciate recommendations 08/22 working with pt/ot. eating better still left sided deficit but baseline 08/23- working with pt/ot- waiting for placement (2) Hyponatremia: Code(s): E87.1 - Hypo-osmolality and hyponatremia Status: Acute (3) Anemia: Code(s): D64.9 - Anemia, unspecified Status: Acute (4) Pancreatic cancer: Code(s): C25.9 - Malignant neoplasm of pancreas, unspecified Status: Acute Plan Initiate fall precautions and consult PT/OT. She has chronic hyponatremia though sodium is lower than what she typically runs. She received 1 L normal saline in the ED. Check urine and serum osmolalities, urine sodium, and TSH. monitor BMP Chronic anemia stable on review of previous labs. Time Spent With Patient Time with patient: Greater than 35 minutes Subjective Date/time seen: 08/23/24 08:17 Interval history: patient 84-year-old with a history of right CVA with left hemiparesis subsequent to that she has developed he speech difficulties presenting as predominantly Wernicke's aphasia. she is doing well today. eating and drinking a little better. BP still slightly elevated. Will add amlodipine. Review of Systems Review of Systems: pt is confused this am Constitutional: Constitutional: Denies chills Eyes: Eyes: Denies blurry vision Cardiovascular: Cardiovascular: Denies chest pain Respiratory: Respiratory: Denies chest congestion and Denies cough Exam Narrative: General: Thin, frail elderly female HEENT: PERRL, EOMI. Sclera anicteric. Oral mucosa moist. Neck: Supple. No carotid bruits. Respiratory: Lungs are clear to auscultation bilaterally. Cardiovascular: Regular rate and rhythm with S1-S2. Gastrointestinal: Abdomen is soft, nontender, and nondistended with positive bowel sounds. Skin: Warm and dry. Extremities: No cyanosis, clubbing, or edema. Radial and pedal pulses intact. Neurological: alert, oriented to self, knows she is in the hospital, still confused about year. lt sided weakness unchanged. Psychiatric: Pleasant and cooperative with normal mood and affect. She is in good spirits. Const: General: comfortable Objective Data Vital Signs Vital Signs: Vital Signs - 24 hr 08/22/24 08:27 08/22/24 12:01 08/22/24 14:00 Temperature 98.6 F Pulse Rate 124 H 97 Respiratory Rate 18 12 Blood Pressure 149/75 H Pulse Oximetry 97 99 Oxygen Delivery Room Air 08/22/24 16:03 08/22/24 20:07 08/22/24 20:51 Temperature 97.8 F Pulse Rate 99 101 H 101 H Respiratory Rate 16 Blood Pressure 138/72 Pulse Oximetry 99 99 Oxygen Delivery Room Air 08/23/24 00:04 08/22/24 20:00 08/23/24 04:00 Temperature Pulse Rate 106 H 97 103 H Respiratory Rate Blood Pressure Pulse Oximetry Oxygen Delivery 08/23/24 05:24 Temperature 97.5 F L Pulse Rate 53 L Respiratory Rate 16 Blood Pressure 153/76 H Pulse Oximetry 98 Oxygen Delivery Intake/Output Intake/Output: Intake & Output 08/20/24 08/21/24 08/22/24
--- NOTE | 2024-08-23 09:20 | PM.DS ---
DS: Admitting Diagnosis Discharge Date 08/23 Admitting Diagnosis ams DS: Discharge Diagnosis Discharge Diagnosis (1) Cerebrovascular accident: Code(s): I63.9 - Cerebral infarction, unspecified Status: Acute Assessment and Plan: The patient presented to the emergency department for evaluation of left-sided weakness as detailed in HPI. Labs, imaging, EKG, and all reports were personally reviewed. Last known normal was at 03:30 and she is outside the window for thrombolytic therapy. Brain CT did not show acute findings however clinically she has had a stroke. Neurology consulted for recommendations. 08/18 this am- confusion and unable to follow commands. Repeated CT scan. neurology saw pt this am- appreciate recommendations - will keep pt NPO for now- speech eval- gentle iv hydration for now -08/19- able to pass speech eval with cues 08/20- eating well- encouraged oral intake 08/21- stable- no acute changes- will monitor neuro checks, neurology is following- appreciate recommendations 08/22 working with pt/ot. eating better still left sided deficit but baseline 08/23- working with pt/ot- waiting for placement (2) Hyponatremia: Code(s): E87.1 - Hypo-osmolality and hyponatremia Status: Acute (3) Anemia: Code(s): D64.9 - Anemia, unspecified Status: Acute (4) Pancreatic cancer: Code(s): C25.9 - Malignant neoplasm of pancreas, unspecified Status: Acute Plan Initiate fall precautions and consult PT/OT. She has chronic hyponatremia though sodium is lower than what she typically runs. She received 1 L normal saline in the ED. Check urine and serum osmolalities, urine sodium, and TSH. monitor BMP Chronic anemia stable on review of previous labs. DS: Summary Hospital Course Hospital Course: Patient 84-year-old with a history of right CVA with left hemiparesis subsequent to that she has developed he speech difficulties presenting as predominantly Wernicke's aphasia. She shows a significant improvement with speech and mobility. . Continue antiplatelets and statins as planned before. She will require rehab for the left persistent left-sided weakness. Her BP was slightly elevated in the hospital- so we started her on amlodipine 5 mg. Status at Discharge Functional status at discharge: uses cane/walker Overall status at discharge: patient is progressing back to baseline Time Spent with Patient Time attestation: Total time spent providing and/or coordinating discharge services: Time spent: Greater than 30 minutes Exam Narrative: General: Thin, frail elderly female HEENT: PERRL, EOMI. Sclera anicteric. Oral mucosa moist. Neck: Supple. No carotid bruits. Respiratory: Lungs are clear to auscultation bilaterally. Cardiovascular: Regular rate and rhythm with S1-S2. Gastrointestinal: Abdomen is soft, nontender, and nondistended with positive bowel sounds. Skin: Warm and dry. Extremities: No cyanosis, clubbing, or edema. Radial and pedal pulses intact. Neurological: alert, oriented to self, knows she is in the hospital, still confused about year. lt sided weakness unchanged. Psychiatric: Pleasant and cooperative with normal mood and affect. She is in good spirits. Const: General: comfortable DS: Data Data Completed and Pending Labs on day of discharge: Labs from last 24 hours 08/18/24 14:52 Homocysteine 8.0 Discharge Plan Discharge Consulting providers: Marquis Loving Discharging Clinician: Yeimy Hinojosa Patient Disposition: SNF Activity: may shower Diet: as tolerated and heart healthy Discharge Instructions: Please f/u with neurology outpt. Continue antiplatelets and stain as discussed with neurology- Dr Olson. WE added a low dose of BP med since your BP was slightly elevated in the hospital. Please f/u with PCP for further monitoring and titrations. Stand Alone Forms: General Discharge Information Discharge Medications: New
[2024-08-23] MEDS: FOLIC ACID 1 MG TABLET PO (09:23)
[2024-08-23] MEDS: ASPIRIN 81 MG CHEWABLE TABLET PO (09:23)
[2024-08-23] MEDS: CLOPIDOGREL BISULFATE 75 MG TABLET PO (09:23)
[2024-08-23] MEDS: CALCIUM/VITAMIN D 250 MG/3.125 MCG (125 I.U.) TABLET 1 TABLET PO (09:23)
[2024-08-23] MEDS: ATORVASTATIN 40 MG TABLET PO (09:23)
[2024-08-23 09:25] VITALS: BP 159/93
[2024-08-23] MEDS: amLODIPine BESYLATE 5 MG TABLET PO (09:25)
[2024-08-23 12:00] VITALS: PULSE 111
[2024-08-23 12:01] LABS: SARS-CoV-2 RNA PCR Negative (Negative)
== END 2024-08-23 14:20 | DRG 65 ==
LOC: ANHED 15:15 → ANH2MED 15:46
PROVIDERS: Physician Assistant; Psychiatry & Neurology Neurology; Admitting Provider Family Medicine; Emergency Provider Emergency Medicine; PCP Family Medicine; Visit Provider Nurse Practitioner
DX: I63.9 Cerebral infarction, unspecified (principal); C25.9 Malignant neoplasm of pancreas, unspecified; E87.1 Hypo-osmolality and hyponatremia; G81.94 Hemiplegia, unspecified affecting left nondominant side; R29.810 Facial weakness; R47.01 Aphasia; R29.708 NIHSS score 8; D64.9 Anemia, unspecified; I71.21 Aneurysm of the ascending aorta, without rupture; K58.9 Irritable bowel syndrome, unspecified; M19.90 Unspecified osteoarthritis, unspecified site; R29.6 Repeated falls; Z20.822 Contact with and (suspected) exposure to COVID-19; Z87.891 Personal history of nicotine dependence
CPT/HCPCS: 36415; 70450; 70496; 70498; 70553; 71045; 80048; 80053; 80061; 82570; 82948; 83090; 83735; 83930; 83935; 84295; 84300; 84443; 84484; 84540; 85025; 85610; 85730; 87635; 92507; 92523; 92526; 92610; 93005; 93306; 96375; 97110; 97112; 97161; 97166; 97530; 99285; A9270; A9577; G0378; J1953; J7030; Q9967